=== PATIENT | male | born 1965 | race Caucasian/White ===

== ENCOUNTER 2021-01-08 07:32 | Outpatient (REF) | payer OTHER, SELFPAY ==
[2021-01-08 07:52] LABS: COVID-19 Test Negative (Negative)
== END 2021-01-08 07:33 | disposition home or self-care (01) ==
LOC: HO.LAB 07:32
PROVIDERS: Visit Provider Internal Medicine
DX: Z20.822 Contact with and (suspected) exposure to COVID-19 (principal)
CPT/HCPCS: 36415; 87635; C9803

== ENCOUNTER → 2021-03-09 14:33 | Outpatient (BNVA) | payer OTHER, SELFPAY | PROVIDERS: PCP Internal Medicine; Visit Provider Anesthesiology ==

== ENCOUNTER 2021-04-28 07:21 | Outpatient (REF) | payer OTHER, SELFPAY ==
[2021-04-28 08:04] LABS: MANUAL DIFF FLAG NO
[2021-04-28 08:10] LABS: Basophils Percent Auto 0.6 % (0-2); Eosinophils Absolute Auto 0.2 X10*3/uL (0.0-0.4); Eosinophils Percent Auto 2.5 % (0-4); Hemoglobin 15.3 g/dl (14.0-18.0); Imm Gran Abs Auto 0.03 X10*3/uL (0.00-0.03); Imm Gran Pct Auto 0.5 % (0.0-0.4); Lymphocytes Absolute Auto 1.3 X10*3/uL (1.2-4.9); Lymphocytes Percent Auto 19.6 % (20-40); Mean Corpuscular HGB Conc 34.8 g/dl (31.0-36.0); Mean Corpuscular Hemoglobin 32.1 pg (27.0-33.0); Mean Corpuscular Volume 92.2 fL (80-98); Mean Platelet Volume 9.6 fL (9.4-12.4); Monocytes Absolute Auto 0.8 X10*3/uL (0.1-1.2); Monocytes Percent Auto 12.4 % (2-11); Neutrophils Absolute Auto 4.2 X10*3/uL (2.0-8.3); Neutrophils Percent Auto 64.4 % (45-73); Platelet Count 232 X10*3/uL (160-400); Red Blood Count 4.77 X10*6/uL (4.60-5.80); Red Cell Distribution Width 12.3 % (11.0-16.0); White Blood Count 6.5 X10*3/uL (4.8-10.8)
[2021-04-28 08:19] LABS: Estimated Average Glucose 105 mg/dL; Hemoglobin A1c % 5.3 %
[2021-04-28 08:34] LABS: Alanine Aminotransferase 39 U/L (0-40); Albumin Level 4.7 g/dL (3.5-5.0); Alkaline Phosphatase 90 U/L (39-117); Anion Gap 14 (12-20); Aspartate Amino Transferase 25 U/L (5-37); Bilirubin Total 0.7 mg/dL (0.0-1.0); Blood Urea Nitrogen 21 mg/dL (9-16); Calcium 9.5 mg/dL (8.4-10.2); Carbon Dioxide 25 mmol/L (22-29); Chloride 104 mmol/L (96-108); Cholesterol 228 mg/dL; Estimated Glomerular Filt Rate > 60; Glucose Random 128 mg/dL (60-115); HDL Cholesterol 48 mg/dL; LDL Cholesterol Calculated 112 mg/dl; Potassium 4.3 mmol/L (3.3-5.1); Sodium 139 mmol/L (135-145); Total Protein 7.5 g/dL (6.5-8.0); Triglycerides 341 mg/dL
[2021-04-28 09:00] LABS: Free T4 (Free Thyroxine) 0.92 ng/dL (0.71-1.85); Prostate Specific Antigen Scr 0.99 ng/mL (<0.05-4.0); Thyroid Stimulating Hormone 0.77 uIU/mL (0.32-4.0)
[2021-04-28 09:25] LABS: Folate 7.8 ng/mL (> or = 4.0); Vitamin B12 315 pg/mL (200-900)
== END 2021-04-28 07:22 | disposition home or self-care (01) ==
LOC: HO.LAB 07:21
PROVIDERS: Internal Medicine; PCP Internal Medicine; Visit Provider Internal Medicine
DX: Z12.5 Encounter for screening for malignant neoplasm of prostate (principal); E78.1 Pure hyperglyceridemia; R73.02 Impaired glucose tolerance (oral); E78.00 Pure hypercholesterolemia, unspecified
CPT/HCPCS: 36415; 80053; 80061; 82607; 82746; 83036; 84153; 84439; 84443; 85025; C9803; U0003; U0005

== ENCOUNTER → 2021-06-24 09:36 | Outpatient (BNVA) | payer OTHER, SELFPAY | PROVIDERS: PCP Internal Medicine; Visit Provider Dietitian, Registered | DX: R73.02 Impaired glucose tolerance (oral) (principal); E78.00 Pure hypercholesterolemia, unspecified | CPT/HCPCS: 97802 ==

== ENCOUNTER 2021-07-06 15:42 | Outpatient (REF) | payer OTHER, SELFPAY ==
[2021-07-06 16:14] LABS: IDNOW Serial# 9DD0AD1C
[2021-07-06 16:15] LABS: COVID-19 Test Negative (Negative)
== END 2021-07-06 15:43 | disposition home or self-care (01) ==
LOC: HO.LAB 15:42
PROVIDERS: Visit Provider Internal Medicine
DX: Z20.822 Contact with and (suspected) exposure to COVID-19 (principal)
CPT/HCPCS: 36415; 87635; C9803

== ENCOUNTER 2022-04-07 15:46 | Outpatient (REF) | payer OTHER, SELFPAY ==
--- NOTE | ~2022-04-07 | XR_ITS ---
EXAMINATION: XR HAND, LEFT CLINICAL INFORMATION: Left hand pain (thumb). COMPARISON: None TECHNIQUE: PA, lateral, and oblique views of the left thumb. FINDINGS: There is no evidence of acute fracture or dislocation of the left thumb. There appears to be some mild edema within the soft tissues. Joint spaces are maintained. No destructive bony lesion. There appear to be subchondral cyst or erosions about the heads of the 2nd, 3rd, and 5th proximal phalanges. There also appears to be subchondral cyst or erosion about the head of the 5th middle phalanx. There also appears to be a small cyst or erosion involving the distal scaphoid. No para-articular osteopenia is present. XR/XR hand LT min 3V IMPRESSION: No evidence of acute fracture or dislocation of the left thumb. No significant joint space narrowing appreciated. Question erosions or subchondral cysts about the hand as described.
== END 2022-04-07 15:47 | disposition home or self-care (01) ==
LOC: HO.HOSX 15:46
PROVIDERS: Visit Provider Orthopaedic Surgery
DX: M79.642 Pain in left hand (principal)
CPT/HCPCS: 73130

== ENCOUNTER 2022-07-26 11:59 | Outpatient (REF) | payer OTHER, SELFPAY ==
[2022-07-26 12:55] LABS: Influenza A PCR NEGATIVE (Negative); Influenza B PCR NEGATIVE (Negative); Resp Syncy Virus RNA Qual PCR NEGATIVE (Negative); SARS COV2 PCR INHOUSE NEGATIVE (Negative)
== END 2022-07-26 12:00 | disposition home or self-care (01) ==
LOC: HO.LNP 11:59
PROVIDERS: Visit Provider Nurse Practitioner Family
DX: Z20.822 Contact with and (suspected) exposure to COVID-19 (principal); J30.9 Allergic rhinitis, unspecified
CPT/HCPCS: 0241U

== ENCOUNTER 2022-12-10 06:52 | Outpatient (REF) | payer OTHER, SELFPAY ==
[2022-12-10 07:03] LABS: MANUAL DIFF FLAG NO
[2022-12-10 07:43] LABS: Basophils Absolute Auto 0.1 X10*3/uL (0.0-0.2); Basophils Percent Auto 1.1 % (0-2); Eosinophils Absolute Auto 0.3 X10*3/uL (0.0-0.4); Hematocrit 42.8 % (42.0-52.0); Hemoglobin 14.4 g/dl (14.0-18.0); Imm Gran Abs Auto 0.02 X10*3/uL (0.00-0.03); Imm Gran Pct Auto 0.3 % (0.0-0.4); Lymphocytes Percent Auto 30.8 % (20-40); Mean Corpuscular HGB Conc 33.6 g/dl (31.0-36.0); Mean Corpuscular Hemoglobin 31.4 pg (27.0-33.0); Mean Corpuscular Volume 93.2 fL (80.0-98.0); Mean Platelet Volume 9.3 fL (9.4-12.4); Monocytes Absolute Auto 0.8 X10*3/uL (0.1-1.2); Monocytes Percent Auto 11.5 % (2-11); Neutrophils Absolute Auto 3.4 x10*3/uL (2.0-8.3); Neutrophils Percent Auto 52.3 % (45-73); Platelet Count 297 X10*3/uL (160-400); Red Blood Count 4.59 X10*6/uL (4.60-5.80); Red Cell Distribution Width 11.9 % (11.0-16.0); White Blood Count 6.5 X10*3/uL (4.8-10.8)
[2022-12-10 08:00] LABS: Estimated Average Glucose 108 mg/dL; Hemoglobin A1C 142.5163 umol/L; Hemoglobin A1c % 5.4 %
[2022-12-10 08:34] LABS: Alanine Aminotransferase 31 U/L (0-40); Albumin Level 4.8 g/dL (3.5-5.0); Alkaline Phosphatase 74 U/L (39-117); Anion Gap 18 (12-20); Aspartate Amino Transferase 18 U/L (5-37); Bilirubin Total 0.5 mg/dL (0.0-1.0); Blood Urea Nitrogen 21 mg/dL (9-16); Calcium 9.5 mg/dL (8.4-10.2); Carbon Dioxide 25 mmol/L (22-29); Chloride 104 mmol/L (96-108); Cholesterol 219 mg/dL; Estimated Glomerular Filt Rate > 60; Glucose Random 114 mg/dL (60-115); HDL Cholesterol 43 mg/dL; LDL Cholesterol Calculated 110 mg/dl; Potassium 4.4 mmol/L (3.3-5.1); Sodium 143 mmol/L (135-145); Total Protein 7.6 g/dL (6.5-8.0); Triglycerides 333 mg/dL
[2022-12-10 09:14] LABS: Folate 4.9 ng/mL (> or = 4.0); Free T4 (Free Thyroxine) 0.98 ng/dL (0.71-1.85); Prostate Specific Antigen Scr 1.38 ng/mL (<0.05-4.0); Thyroid Stimulating Hormone 0.59 uIU/mL (0.32-4.0); Vitamin B12 511 pg/mL (200-900)
== END 2022-12-10 06:53 | disposition home or self-care (01) ==
LOC: HO.LAB 06:52
PROVIDERS: PCP Internal Medicine; Visit Provider Internal Medicine
DX: Z00.00 Encounter for general adult medical examination without abnormal findings (principal); Z12.5 Encounter for screening for malignant neoplasm of prostate; E78.00 Pure hypercholesterolemia, unspecified; E78.1 Pure hyperglyceridemia; R73.02 Impaired glucose tolerance (oral)
CPT/HCPCS: 36415; 80053; 80061; 82607; 82746; 83036; 84153; 84439; 84443; 85025

== ENCOUNTER 2023-01-04 10:37 | Outpatient (REF) | payer OTHER, SELFPAY ==
--- NOTE | ~2023-01-04 | XR_ITS ---
EXAMINATION: XR WRIST, LEFT CLINICAL INFORMATION: Pain COMPARISON: Previous left hand x-ray 2021 TECHNIQUE: PA, lateral, and oblique views of the left wrist. FINDINGS: Bone alignment is normal. No fracture or dislocation. Subchondral cystic changes in the scaphoid bone at the trapezoid trapezium scaphoid joint. May also be mild joint space narrowing. Joint spaces are otherwise normal. Soft tissues are normal. XR/XR wrist LT min 3V IMPRESSION: Subchondral cystic change in the scaphoid bone at the trapezoid trapezium scaphoid joint similar to previous exam.
== END 2023-01-04 10:38 | disposition home or self-care (01) ==
LOC: HO.HOSX 10:37
PROVIDERS: PCP Internal Medicine; Visit Provider Orthopaedic Surgery
DX: M25.532 Pain in left wrist (principal); M25.432 Effusion, left wrist
CPT/HCPCS: 73110

== ENCOUNTER → 2023-03-15 08:56 | Outpatient (BNVA) | payer OTHER, SELFPAY | PROVIDERS: PCP Internal Medicine; Visit Provider Orthopaedic Surgery ==

== ENCOUNTER 2023-04-04 14:19 | Outpatient (REF) | payer OTHER, SELFPAY ==
--- NOTE | ~2023-04-04 | XR_ITS ---
Examination: XR knee standing BI, XR knee RT 2V Indication: M25.561 - Pain in right knee Comparison: No pertinent prior studies are currently available for comparison. Technique: Standing views of both knees with additional lateral and sunrise view of the right knee obtained Findings: No significant right knee joint effusion. Bones are normal anatomic alignment with no acute fracture or dislocation. Mild tricompartmental degenerative changes are seen with small anterior osteophyte formation in the patellofemoral compartment and mild joint space loss in the medial more so than lateral compartments. No bony destructive lesions or periosteal reaction. Surrounding soft tissue unremarkable. The visualized left knee demonstrates mild joint space loss in the medial compartment as well. XR/XR knee RT 2V Impression: Mild tricompartmental degenerative changes on the right. Mild degenerative changes in the visualized left. No acute fracture or dislocation.
--- NOTE | ~2023-04-04 | XR_ITS ---
Examination: XR knee standing BI, XR knee RT 2V Indication: M25.561 - Pain in right knee Comparison: No pertinent prior studies are currently available for comparison. Technique: Standing views of both knees with additional lateral and sunrise view of the right knee obtained Findings: No significant right knee joint effusion. Bones are normal anatomic alignment with no acute fracture or dislocation. Mild tricompartmental degenerative changes are seen with small anterior osteophyte formation in the patellofemoral compartment and mild joint space loss in the medial more so than lateral compartments. No bony destructive lesions or periosteal reaction. Surrounding soft tissue unremarkable. The visualized left knee demonstrates mild joint space loss in the medial compartment as well. XR/XR knee standing BI Impression: Mild tricompartmental degenerative changes on the right. Mild degenerative changes in the visualized left. No acute fracture or dislocation.
== END 2023-04-04 14:20 | disposition home or self-care (01) ==
LOC: HO.HOSX 14:19
PROVIDERS: Visit Provider Physician Assistant
DX: M25.561 Pain in right knee (principal); M23.91 Unspecified internal derangement of right knee; M25.562 Pain in left knee
CPT/HCPCS: 20610; 73560; 73565; J1040

== ENCOUNTER 2023-04-04 14:20 | Outpatient (AMB) | payer OTHER, SELFPAY ==
[2023-04-04 14:28] VITALS: BMI 26.1
--- NOTE | 2023-04-04 14:28 | MHC.OFFVIS ---
Intake Vital Signs 04/04/23 14:28 Height 5 ft 10 in Weight 182 lb BMI 26.1 Intake Visit Reasons: New Prob - Knee Pain Intake Note: Stefano 58 yr old male presents today for a new problem of his right knee pain. No injury he can recall. States pain has been presents for about 2 weeks and has worsen. States he has concerns due to swelling in his calf. Pain is mainly when he extends and flexes his knee. Patient states he is very active and this is limiting him. Pain with ROM. Denies numbness or tingling. States he has tried Advil with little relief. Allergies lisinopril Allergy (Intermediate, Verified 04/04/23 14:33) Cough scallops Adverse Reaction (Unknown, Verified 04/04/23 14:33) VOMITING HPI New Prob - Knee Pain HPI Details 58-year-old male who presents to the office today for evaluation of right knee pain for 2 weeks. He states he has worsening right knee pain with flexing and extending his knee. He also c/o swelling in his calf. He denies any numbness or tingling. He finds mild relief with Advil. He has not had any injury in the past. [facility] Medical History Allergic rhinitis Blood pressure elevated without history of HTN Dog bite of left thumb GERD (gastroesophageal reflux disease) Hypertriglyceridemia Impaired glucose tolerance Myofascial pain syndrome Surgical History Left breast mass Family History Mother No problems noted. 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 Tenderness along the medial joint line. Full ROM with crepitus. Negative Hiwot?s. No ligamentous laxity. NVI. Office Procedures Joint Injection/Drain Joint Injection/Drain Primary Site: right knee Prep: site was prepped using aseptic technique, ethochloride spray was applied and injection warnings given Injected: 80 mg of, DepoMedrol, with 8 mL of, 1% plain lidocaine and in the joint Approach Used: anteromedial Procedure: The patient tolerated the procedure well and there was some relief with the local anesthesia Coding 09919 - Glenohumeral/Tronchanteric Bursa/Intraarticular Procedure code (CPT) selection complete Results Reviewed Results Reviewed: 04/04/23 14:44 Lidocaine HCl 2 % MPF [Xylocaine 2 % MPF] 5 ml .ROUTE .STK-MED ONE methylPREDNISolone acetate [DEPO-MedroL] 80 mg .ROUTE .STK-MED ONE Xrays were obtained in the office today and personally reviewed by me of the right knee negative for acute fracture or dislocation Assessment & Plan Assessment & Plan (1) Internal derangement of right knee: Code(s): M23.91 - Unspecified internal derangement of right knee Plan We discussed options today which include steroid injection. They did consent to move forward with the injection, which was tolerated well. An MRI of the right knee was also ordered to further evaluate integrity of his meniscus. I recommended rest, ice and elevation and OTC anti-inflammatories PRN for discomfort. If symptoms persist or worsens over the next 6-8 weeks, patient will contact the office, otherwise follow-up as needed. Orders: Orders XR knee standing BI 04/04/23 M25.561 - Pain in right knee, M25.562 - Pain in left knee XR knee RT 2V 04/04/23 M25.569 - Pain in unspecified knee MR knee RT wo con 04/04/23 M17.11 - Unilateral primary osteoarthritis, right knee Patient Instructions: Scribed for Fidel South PA-C, by Robert Omalley medical equipment technician, on 04/04/2023 at 2:30 PM EST. Fidel Lowery PA-C, have personally reviewed and agree with the information entered by the scribe. Coding Level of Care Code Est Pt Level 3 (47006) Diagnoses Internal derangement of right knee M23.91 CPT Codes Coding - Joint 7: 09286 - Glenohumeral/Tronchanteric Bursa/Intraarticular ([id number])
== END 2023-04-04 15:03 | disposition home or self-care (01) ==
PROVIDERS: PCP Internal Medicine; Visit Provider Physician Assistant
DX: M23.91 Unspecified internal derangement of right knee (principal)
CPT/HCPCS: 20610; 99213

== ENCOUNTER 2023-05-09 18:02 | Outpatient (REF) | payer OTHER, SELFPAY ==
--- NOTE | ~2023-05-09 | MR_ITS ---
EXAMINATION: MR KNEE WITHOUT CONTRAST, RIGHT CLINICAL INFORMATION: Right knee pain. Inability to fully flex or extend the knee. Unilateral primary osteoarthritis. COMPARISON: None available. TECHNIQUE: MRI of the right knee without contrast was performed using routine sequences on a high-field scanner. FINDINGS: MENISCI: Medial Meniscus: The medial meniscus, and its root ligaments, are intact. Lateral Meniscus: Intact. No evidence of surface tearing, discoid meniscus or parameniscal cyst. LIGAMENTS: Cruciate: Anterior and posterior cruciate ligaments are normal. Collateral: At the medial knee, the tibial collateral ligament is intact. At the lateral knee, the iliotibial band, fibular collateral ligament, biceps femoris tendon and popliteus tendon are intact. EXTENSOR MECHANISM: The distal quadriceps tendon is unremarkable. There is mild tendinopathy of the patellar tendon at the lower pole where there is likely old small interstitial tendon tear of < 0.2 cm AP dimension (image 15, series 5). Otherwise, the patellar tendon, patellar retinacula, and Hoffa's fat pad are unremarkable. ARTICULAR CARTILAGE/BONE: Patellofemoral Compartment: Patella is properly positioned within the trochlear groove. There is moderate to high-grade chondral loss in region of the median ridge of the patella. A focus of delamination of cartilage at the lateral patellar facet measures 0.6 cm transverse (image 6, series 3). A full-thickness chondral defect of the medial trochlear facet measures up to 0.8 cm diameter. Small osteophytes are present at the degenerated patellofemoral joint. Medial Compartment: Multiple irregular partial-thickness and full-thickness chondral fissures are present in the weightbearing portion of the femoral condyle with underlying subchondral marrow edema, subchondral sclerosis and small subchondral cyst. No fracture. Lateral Compartment: Articular cartilage is maintained. JOINT FLUID AND BURSAE: [id number] joint effusion. 0.3 cm intra-articular chondral body is present anterior to the lateral meniscus (image 21, series 6). Also, small chondral body is likely present within the Diggs's cyst. The Diggs's cyst measures up to 2.5 cm transverse and approximately 6 cm craniocaudal. MR/MR knee RT wo con IMPRESSION: * No evidence of meniscus tear or ligament injury. * There is osteoarthritis of patellofemoral and medial tibiofemoral compartments. Articular cartilage abnormalities include full-thickness and delamination defects of the patella, as well as full-thickness chondral defects of the medial femoral trochlea and weightbearing medial femoral condyle * [id number] joint effusion, Diggs's cyst and small intra-articular chondral bodies. * Mild patellar tendinopathy.
== END 2023-05-09 18:03 | disposition home or self-care (01) ==
LOC: HO.MRI 18:02
PROVIDERS: PCP Internal Medicine; Visit Provider Physician Assistant
DX: M17.11 Unilateral primary osteoarthritis, right knee (principal)
CPT/HCPCS: 73721

== ENCOUNTER 2023-06-09 14:40 | Outpatient (AMB) | payer OTHER, SELFPAY ==
--- NOTE | 2023-06-09 15:00 | A.OFFVIS_ITS ---
Intake Intake Visit Reasons: ov- MRI Knee RT review Intake Note: Pt presents to the office today for MRI results of the right knee. Pt states he had a few episodes of not being able to move it after the MRI but he still feels pressure in his leg. He states he is able to move his knee/leg a lot better since his last visit. Allergies lisinopril Allergy (Intermediate, Verified 06/09/23 15:00) Cough scallops Adverse Reaction (Unknown, Verified 06/09/23 15:00) VOMITING HPI ov- MRI Knee RT review HPI Details 58-year-old male who returns to the [facility] today for an MRI review of right knee. He states he has been able to move his leg better than his last visits but he did have a few episodes of being unable to move after the MRI. He also experiences pressure in his leg. [facility] Medical History Dog bite of left thumb Myofascial pain syndrome Blood pressure elevated without history of HTN Allergic rhinitis GERD (gastroesophageal reflux disease) Hypertriglyceridemia Impaired glucose tolerance Surgical History Left breast mass Family History Mother No problems noted. 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 Mild Tenderness along the medial joint line. Full ROM with crepitus. Negative Hiwot?s. No ligamentous laxity. NVI. Results Reviewed Results Reviewed: MR knee RT wo con 05/09/23 IMPRESSION: * No evidence of meniscus tear or ligament injury. * There is osteoarthritis of patellofemoral and medial tibiofemoral compartments. Articular cartilage abnormalities include full-thickness and delamination defects of the patella, as well as full-thickness chondral defects of the medial femoral trochlea and weightbearing medial femoral condyle * [id number] joint effusion, Diggs's cyst and small intra-articular chondral bodies. * Mild patellar tendinopathy. Assessment & Plan Assessment & Plan (1) Internal derangement of right knee: Code(s): M23.91 - Unspecified internal derangement of right knee Plan He is going to continue with activities as tolerated. I did send him a prescription to his pharmacy for occasional flareups if needed. If symptoms persist or worsens, patient will contact the office, otherwise follow-up as needed. Medications: New celecoxib (Celebrex) 200 mg PO BID 60 caps 3RF 30 days Patient Instructions: Scribed for Fidel South PA-C, by Robert Omalley quality engineer medical device, on 06/09/2023 at 3:15 PM EST. Fidel Lowery PA-C, have personally reviewed and agree with the information entered by the scribe. Coding Level of Care Code Est Pt Level 3 (37443) Diagnoses Internal derangement of right knee M23.91
== END 2023-06-09 16:02 | disposition home or self-care (01) ==
PROVIDERS: PCP Internal Medicine; Visit Provider Physician Assistant
DX: M23.91 Unspecified internal derangement of right knee (principal)
CPT/HCPCS: 99213

== ENCOUNTER → 2023-06-09 14:40 | Outpatient (BNVA) | payer OTHER, SELFPAY | PROVIDERS: PCP Internal Medicine; Visit Provider Physician Assistant ==

== ENCOUNTER 2023-11-10 06:47 | Outpatient (REF) | payer OTHER, SELFPAY ==
[2023-11-10 07:03] LABS: MANUAL DIFF FLAG NO
[2023-11-10 07:14] LABS: Basophils Absolute Auto 0.1 X10*3/uL (0.0-0.2); Eosinophils Absolute Auto 0.2 X10*3/uL (0.0-0.4); Eosinophils Percent Auto 3.1 % (0-4); Hemoglobin 14.7 g/dl (14.0-18.0); Imm Gran Abs Auto 0.02 X10*3/uL (0.00-0.03); Imm Gran Pct Auto 0.3 % (0.0-0.4); Lymphocytes Absolute Auto 1.5 X10*3/uL (1.2-4.9); Lymphocytes Percent Auto 23.9 % (20-40); Mean Corpuscular Hemoglobin 32.2 pg (27.0-33.0); Mean Corpuscular Volume 91.9 fL (80.0-98.0); Monocytes Absolute Auto 0.6 X10*3/uL (0.1-1.2); Monocytes Percent Auto 10.1 % (2-11); Neutrophils Absolute Auto 3.8 x10*3/uL (2.0-8.3); Neutrophils Percent Auto 61.6 % (45-73); Platelet Count 238 X10*3/uL (160-400); Red Blood Count 4.57 X10*6/uL (4.60-5.80); Red Cell Distribution Width 12.1 % (11.0-16.0); White Blood Count 6.2 X10*3/uL (4.8-10.8)
[2023-11-10 07:24] LABS: Estimated Average Glucose 108 mg/dL; Hemoglobin A1c % 5.4 % (<6.0)
[2023-11-10 07:41] LABS: Alanine Aminotransferase 43 U/L (0-40); Albumin Level 4.4 g/dL (3.5-5.0); Alkaline Phosphatase 75 U/L (39-117); Anion Gap 11 (12-20); Aspartate Amino Transferase 25 U/L (5-37); Bilirubin Total 0.4 mg/dL (0.0-1.0); Blood Urea Nitrogen 25 mg/dL (9-16); Calcium 9.4 mg/dL (8.4-10.2); Carbon Dioxide 25 mmol/L (22-29); Chloride 106 mmol/L (96-108); Cholesterol 246 mg/dL (<200); Estimated Glomerular Filt Rate > 60; Glucose Random 119 mg/dL (60-115); HDL Cholesterol 44 mg/dL (>40); Potassium 4.1 mmol/L (3.3-5.1); Sodium 138 mmol/L (135-145); Total Protein 7.5 g/dL (6.5-8.0); Triglycerides 728 mg/dL (<150)
[2023-11-10 07:50] LABS: Free T4 (Free Thyroxine) 0.84 ng/dL (0.71-1.85); Thyroid Stimulating Hormone 1.07 uIU/mL (0.32-4.0)
== END 2023-11-10 06:48 | disposition home or self-care (01) ==
LOC: HO.LAB 06:47
PROVIDERS: PCP Internal Medicine; Visit Provider Internal Medicine
DX: I10 Essential (primary) hypertension (principal); E78.00 Pure hypercholesterolemia, unspecified; R73.02 Impaired glucose tolerance (oral)
CPT/HCPCS: 36415; 80053; 80061; 83036; 84439; 84443; 85025

== ENCOUNTER 2023-11-11 08:24 | Outpatient (AMB) | payer OTHER, SELFPAY ==
[2023-11-11 08:33] VITALS: BP 134/78; PULSE 89; O2SAT 97; BMI 26.7
--- NOTE | 2023-11-11 08:33 | A.OFFPC_ITS ---
Vital Signs 11/11/23 08:33 Height 5 ft 10 in Weight 186 lb BMI 26.7 BP 134/78 Blood Pressure Location Lt brachial Position Sitting Pulse 89 Pulse Source Pulse Oximeter Pulse Oximetry (%) 97 Oxygen Delivery Method Room Air Intake Visit Reasons: PHYSICAL Intake Note: Patient is here today for a physical. Asphalt Tamper Required: No Allergies lisinopril Allergy (Intermediate, Verified 11/11/23 08:34) Cough scallops Adverse Reaction (Unknown, Verified 11/11/23 08:34) VOMITING Medication List - Last Reconciled 11/11/23 by Lynn Sheldon MD fexofenadine (Deena Allergy) 180 mg PO DAILY fluticasone propionate 50 mcg/actuation (Flonase Allergy Relief) 1 spray intranasal Q12H 30 days losartan 50 mg PO DAILY 90 days omeprazole magnesium (Prilosec OTC) 20 mg PO DAILY simvastatin 5 mg PO BEDTIME 90 days Tobacco use date assessed: 11/11/23 Dental Screening Dental Screen Date: 11/11/23 Did you have a dental visit in the last 12 months?: Yes Did you have a dental problem in the last 6 months where you did not have access to dental care?: No Was dental information given to patient?: Patient has dentist HPI PHYSICAL HPI Details 58-year-old male with a history of impai red glucose tolerance hypercholesterolemia GERD hypertension coming in for physical exam last seen in November 2022. Patient's colonoscopy is up-to-date. Review of the notes patient did receive flu and Tdap. Noted also right knee problem and has seen Orthopedics. Results osteoarthritis patellofemoral and medial tibiofemoral compartments small and moderate joint effusion with Diggs's cyst.. February 2023 had a dog bite on the thumb treated with antibiotic and tetanus up-to-date. epigastric pain and 6 weeks with nausea barely eating, getting better does exercise, , diarrhea, had blood 6 qweeks ago , [facility] Medical History Dog bite of left thumb Myofascial pain syndrome Blood pressure elevated without history of HTN Allergic rhinitis GERD (gastroesophageal reflux disease) Hypertriglyceridemia Impaired glucose tolerance Surgical History Left breast mass Family History (Updated 11/11/23 @ 08:48 by Lynn Sheldon MD) Mother No problems noted. 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 1. Little interest or pleasure in doing things: not at all 2. Feeling down, depressed, or hopeless: not at all 3. Trouble falling or staying asleep, or sleeping too much: not at all 4. Feeling tired or having little energy: not at all 5. Poor appetite or overeating: not at all 6. Feeling bad about yourself - or that you are a failure or have let yourself or your family down: not at all 7. Trouble concentrating on things, such as reading the newspaper or watching television: not at all 8. Moving or speaking so slowly that other people could have noticed. Or the opposite - being so fidgety or restless that you have been moving around a lot more than usual: not at all 9. Thoughts that you would be better off or of hurting yourself in some way: not at all Total score: 0 Depression Screening Interpretation: Negative Depression Screening Done: Yes Source: Developed by Drs. Kiko Gray, Katya Melo, Alex Martinez and colleagues, with an educational karis from [employer]. Thrive Questionnaire Date Thrive assessed: 11/11/23 I am a: Patient What is your living situation today?: I have a steady place to live Within the past 12 months, did the food you bought not last and you didn't have the money to get more?: Never true Within the past 12 months, did you worry whether your food would run out before you got money to buy more?: Never true Do you have trouble paying for medicines?: No Do you have trouble getting transportation to medical appointments?: No Do you have trouble paying your heating and electricity bill?: No Do you have trouble taking care of your child, family member or friend?: No Do you have trouble with day-to-day activities such as bathing, preparing meals, shopping, managing finances, etc.?: No Are you currently unemployed and looking for a job?: No Are you interested in more education?: No Please select the resources that you would like help with: None THRIVE Score: 0 AUDIT C Alcohol Use Questionnaire (AUDIT-C) 1. How often do you have a drink containing alcohol?: 4 or more times a week 2. How many drinks containing alcohol do you have on a typical day when you are drinking?: 1 or 2 3. How often do you have six or more drinks on one occasion?: Never Total Score: 4 ADELE-7 AMB Questionnaire ADELE-7 Date ADELE - 7 assessed: 11/11/23 Feeling nervous, anxious, or on edge: 0 = Not at all Not being able to stop or control worryin = Not at all Worrying too much about different things: 0 = Not at all Trouble relaxin = Not at all Being so restless that it is hard to sit still: 0 = Not at all Becoming easily annoyed or irritable: 0 = Not at all Feeling afraid as if something awful might happen: 0 = Not at all Total ADELE-7 score (0-4 normal; 5-9 mild; 10-14 moderate; 15-21 severe): 0 Source: Developed by Drs. Kiko Gray, Katya Melo, Alex Martinez and colleagues, with an educational karis from [employer]. Review of Systems Const Denies poor appetite and Denies weakness Eyes Denies no additional complaints ENT Reports Normal hearing present, Denies dizziness, Denies nasal congestion, Denies tinnitus and Denies sore throat Card Denies chest pain, Denies syncope, Denies rapid heart rate and Denies dyspnea Resp Denies cough and Denies dyspnea GI Denies change in stool character, Reports constipation, Denies diarrhea, Denies nausea and Denies vomiting Denies dysuria and Denies urinary frequency Neuro Reports Normal hearing present, Denies confusion, Denies dizziness, Denies syn cope and Denies weakness Psych Denies confusion Physical exam (Primary Care) Vital Signs: Last Vital Signs Pulse 89 11/11/23 08:33 BP 134/78 11/11/23 08:33 Pulse Ox 97 11/11/23 08:33 Oxygen Delivery Method Room Air 11/11/23 08:33 BMI result Body Mass Index 26.7 Tobacco/Smoking Status: Tobacco use Status Tobacco use date assessed 11/11/23 11/11/23 08:39 Patient Tobacco Use Status Former Tobacco user 11/11/23 08:39 Tobacco use type Cigarette 11/11/23 08:39 e-Cigarette/Vaping Use Never Used 11/11/23 08:39 PHQ-9: PHQ-9 Score PHQ-9: Total score 0 11/11/23 08:41 Depression Screening Interpretation: Negative Thrive Assessment: Date of Thrive Assessment Date Thrive assessed 11/11/23 11/11/23 08:39 Const General: alert and awake; No confusion Orientation/consciousness: No confusion HENMT Head: Yes normocephalic Ears: external ears normal and TM's normal bilaterally Face and sinus: Yes normal facial exam Mouth: moist mucous membranes Throat: Yes tonsils normal Eyes Conjunctivae: conjunctivae normal Pupils: Equal, round and reactive pupils present and Pupil accommodation reflex normal Direct Ophthalmoscopy: normal light reflex Neck Neck: No lymphadenopathy Thyroid: Thyroid normal Chest Chest palpation & inspection: normal inspection of the chest Resp Effort & Inspection: normal respiratory effort and no audible wheezes Auscultation: clear to auscultation bilaterally, no crackles, no wheezes and lung sounds not diminished Cardio Rate: regular rate Rhythm: regular rhythm Peripheral pulses: radial pulses present and dorsalis pedis present GI Other: Guaiac negative stools prostate mildly enlarged Palpation (GI): no masses Auscultation: normal bowel sounds and normoactive bowel sounds Male General Exam: Yes normal external exam Skin General skin exam: no rashes or lesions noted Rashes: no rashes Neuro General: deep tendon reflexes 2+ bilaterally and No confusion Cranial nerves: Yes Equal, round and reactive pupils present, Yes Midline tongue present, Yes Normal hearing present and Yes Ability to bilaterally elevate shoulders present Cognition (Neuro): normal cognition Gait exam (Neuro): Normal gait present Motor exam (neuro): 5/5 motor strength present throughout Deep tendon reflexes (DTR's): Right brachioradialis reflex intensity grade: 2+, Left brachioradialis reflex intensity grade: 2+, Right patellar reflex intensity grade: 2+ and Left patellar reflex intensity grade: 2+ Extrem General: No edema Assessment and Plan Assessment & Plan (1) Annual physical exam: Code(s): Z00.00 - Encounter for general adult medical examination without abnormal findings (2) Hypertriglyceridemia: Code(s): E78.1 - Pure hyperglyceridemia Plan: Avoid fried foods, chicken skin, eggs, butter margarine, pastries and meat. Be it pork or beef they have a lot of cholesterol LDL goal of less than 130 and triglyceride of less than 150 presently on simvastatin 5 mg once a day (3) Impaired glucose tolerance: Code(s): R73.02 - Impaired glucose tolerance (oral) Plan: Decrease the amount of carbohydrate intake, pasta, bread, rice and potatoes are all sugar and that is aside from all the sweet stuff, remember that fruits are good but they are Sweet also. (4) Hypertension: Code(s): I10 - Essential (primary) hypertension Plan: Continue with blood pressure medication. Decrease salt intake and exercise presently on losartan 50 mg once a day (5) Internal derangement of right knee: Code(s): M23.91 - Unspecified internal derangement of right knee Plan: MRI showing arthritis. Patient has seen Orthopedics and was given anti- inflammatory. but this has resolved (6) LFT elevation: Code(s): R79.89 - Other specified abnormal findings of blood chemistry Plan: Will work this up with hepatitis profile as well as liver ultrasound Orders: Orders Lipid Panel 3 Months E78.00 - Pure hypercholesterolemia, unspecified, E78.1 - Pure hyperglyceridemia Comprehensive Met. Panel 3 Months E78.1 - Pure hyperglyceridemia Lipid Panel Today E78.00 - Pure hypercholesterolemia, unspecified, E78.1 - Pure hyperglyceridemia US abdomen complete Today R79.89 - Other specified abnormal findings of blood chemistry Hepatitis B,C Profile Today R79.89 - Other specified abnormal findings of blood chemistry Prostate Specific Antigen Scr Today E78.1 - Pure hyperglyceridemia Medications: New fenofibrate 160 mg PO DAILY 30 tabs 4RF E78.1 - Pure hyperglyceridemia Coding Level of Care Code Est Pt Prev Care 40-64y([id number]) Diagnoses Annual physical exam Z00.00 Hypertriglyceridemia E78.1 Impaired glucose tolerance R73.02 Hypertension I10 Internal derangement of right knee M23.91 LFT elevation R79.89
== END 2023-11-11 09:18 | disposition home or self-care (01) ==
PROVIDERS: PCP Internal Medicine; Visit Provider Internal Medicine
DX: Z00.00 Encounter for general adult medical examination without abnormal findings (principal); E78.1 Pure hyperglyceridemia; R73.02 Impaired glucose tolerance (oral); I10 Essential (primary) hypertension; M23.91 Unspecified internal derangement of right knee; R79.89 Other specified abnormal findings of blood chemistry
CPT/HCPCS: 99396

== ENCOUNTER 2023-11-17 06:28 | Outpatient (REF) | payer OTHER, SELFPAY ==
[2023-11-17 08:21] LABS: Cholesterol 225 mg/dL (<200); HDL Cholesterol 46 mg/dL (>40); LDL Cholesterol Calculated 126 mg/dL (<100); Triglycerides 269 mg/dL (<150)
[2023-11-17 08:41] LABS: HBS Num1 0.57 mIU/mL (0-7.99); HBc Num1 0.09 S/CO (0.00-0.79); HBsAGNum1 0.26 S/CO (0.00-0.99); Hepatitis B Core Antibody Nonreactive (Nonreactive); Hepatitis B Surface Antigen Negative (Negative); ~Hepatitis B Surface Antibody NONREACTIVE (Nonreactive)
[2023-11-17 08:52] LABS: ~HepC Num1 0.08 S/CO (0.00-0.79); ~Hepatitis C Antibody Nonreactive (Nonreactive)
[2023-11-17 09:01] LABS: Prostate Specific Antigen Scr 1.28 ng/mL (<0.05-4.0)
== END 2023-11-17 06:29 | disposition home or self-care (01) ==
LOC: HO.LAB 06:28
PROVIDERS: PCP Internal Medicine; Visit Provider Internal Medicine
DX: E78.1 Pure hyperglyceridemia (principal); R79.89 Other specified abnormal findings of blood chemistry; E78.00 Pure hypercholesterolemia, unspecified; Z12.5 Encounter for screening for malignant neoplasm of prostate
CPT/HCPCS: 36415; 80061; 84153; 86704; 86706; 86803; 87340

== ENCOUNTER 2023-12-01 07:56 | Outpatient (REF) | payer OTHER, SELFPAY ==
--- NOTE | ~2023-12-01 | US_ITS ---
EXAMINATION: US ABDOMEN COMPLETE CLINICAL INFORMATION: Other specified abnormal findings of blood chemistry. COMPARISON: None available. TECHNIQUE: Real-time imaging of the abdominal viscera. FINDINGS: PANCREAS: Normal head and body, the tail is obscured by bowel gas. ABDOMINAL AORTA: The proximal, mid, and distal segments are normal in caliber. INFERIOR VENA CAVA: Visualized portions are normal. LIVER: The liver is normal in size. The liver contour is normal. There is diffuse increased liver parenchymal echogenicity, consistent with hepatic steatosis. No focal hepatic lesion. There is no intrahepatic biliary duct dilatation seen. GALLBLADDER: Normal. The gallbladder is physiologically distended without evidence of stones, sludge, polyps, wall thickening or pericholecystic fluid. COMMON BILE DUCT: Normal in caliber measuring 0.3 cm in diameter. RIGHT KIDNEY: Normal. No hydronephrosis. No renal calculi or focal parenchymal lesions. The kidney measures 11.3 cm in maximum dimension. LEFT KIDNEY: Normal. No hydronephrosis. No renal calculi or focal parenchymal lesions. The kidney measures 10.9 cm in maximum dimension. SPLEEN: Normal. The spleen measures 12.9 cm in maximum dimension. FREE FLUID: None. US/US abdomen complete IMPRESSION: Hepatic steatosis.
--- NOTE | 2023-12-01 08:39 | ECG_ITS ---
Test Reason : htn Blood Pressure : / mmHG Vent. Rate : 069 BPM Atrial Rate : 069 BPM P-R Int : 170 ms QRS Dur : 080 ms QT Int : 402 ms P-R-T Axes : 050 -32 003 degrees QTc Int : 430 ms Normal sinus rhythm Left axis deviation Inferior infarct , age undetermined Abnormal ECG No previous ECGs available Referred By: Lynn Sheldon Electronically Signed By:Marco Canchola
== END 2023-12-01 07:57 | disposition home or self-care (01) ==
LOC: HO.US 07:56
PROVIDERS: PCP Internal Medicine; Visit Provider Internal Medicine
DX: R79.89 Other specified abnormal findings of blood chemistry (principal); I10 Essential (primary) hypertension
CPT/HCPCS: 76700; 93005

== ENCOUNTER → 2023-12-01 08:39 | Outpatient (BNV) | payer OTHER, SELFPAY | PROVIDERS: PCP Internal Medicine; Visit Provider Internal Medicine Cardiovascular Disease | DX: R94.31 Abnormal electrocardiogram [ECG] [EKG] (principal) | CPT/HCPCS: 93010 ==

== ENCOUNTER 2023-12-09 16:43 | Outpatient (AMB) | payer OTHER, SELFPAY ==
--- NOTE | 2023-12-09 16:44 | A.OFFPC_ITS ---
Intake Visit Reasons: DISCUSS BLOOD WORK Allergies lisinopril Allergy (Intermediate, Verified 12/09/23 16:44) Cough scallops Adverse Reaction (Unknown, Verified 12/09/23 16:44) VOMITING Tobacco use date assessed: 11/11/23 Dental Screening Dental Screen Date: 12/09/23 Did you have a dental visit in the last 12 months?: Yes Did you have a dental problem in the last 6 months where you did not have access to dental care?: No Was dental information given to patient?: Patient has dentist HPI DISCUSS BLOOD WORK HPI Details 58-year-old overweight male with hyperch olesterolemia impaired glucose tolerance hypertension and elevated liver function tests comes in for follow-up through Telehealth last seen in October 2023. Patient had an ultrasound done in November 2023 showing hepatic steatosis EKG showing left axis deviation.. Patient had blood work done which showed an elevated cholesterol patient was placed on fenofibrate and repeated the blood work. [facility] Medical History (Updated 12/09/23 @ 16:57 by Lynn Sheldon MD) LFT elevation Dog bite of left thumb Myofascial pain syndrome Blood pressure elevated without history of HTN Allergic rhinitis GERD (gastroesophageal reflux disease) Hypertriglyceridemia Impaired glucose tolerance Surgical History Left breast mass Family History (Updated 12/09/23 @ 16:45 by Toña Muller CMA) Mother No problems noted. 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 1. Little interest or pleasure in doing things: not at all 2. Feeling down, depressed, or hopeless: not at all 3. Trouble falling or staying asleep, or sleeping too much: not at all 4. Feeling tired or having little energy: not at all 5. Poor appetite or overeating: not at all 6. Feeling bad about yourself - or that you are a failure or have let yourself or your family down: not at all 7. Trouble concentrating on things, such as reading the newspaper or watching television: not at all 8. Moving or speaking so slowly that other people could have noticed. Or the opposite - being so fidgety or restless that you have been moving around a lot more than usual: not at all 9. Thoughts that you would be better off or of hurting yourself in some way: not at all Total score: 0 Depression Screening Interpretation: Negative Depression Screening Done: Yes Source: Developed by Drs. Kiko Gray, Katya Melo, Alex Martinez and colleagues, with an educational karis from [employer]. Thrive Questionnaire Date Thrive assessed: 11/11/23 AUDIT C Alcohol Use Questionnaire (AUDIT-C) 1. How often do you have a drink containing alcohol?: 4 or more times a week 2. How many drinks containing alcohol do you have on a typical day when you are drinking?: 1 or 2 3. How often do you have six or more drinks on one occasion?: Never Total Score: 4 ADELE-7 AMB Questionnaire ADELE-7 Date ADELE - 7 assessed: 11/11/23 Source: Developed by Drs. Kiko Gray, Katya Melo, Alex Martinez and colleagues, with an educational karis from [employer]. Physical exam (Primary Care) Tobacco/Smoking Status: Tobacco use Status Tobacco use date assessed 11/11/23 12/09/23 16:46 Patient Tobacco Use Status Former Tobacco user 12/09/23 16:46 Tobacco use type Cigarette 12/09/23 16:46 e-Cigarette/Vaping Use Never Used 12/09/23 16:46 PHQ-9: PHQ-9 Score PHQ-9: Total score 0 12/09/23 16:46 Depression Screening Interpretation: Negative Thrive Assessment: Date of Thrive Assessment Date Thrive assessed 11/11/23 12/09/23 16:46 Telehealth Telehealth Location of provider rendering services: practice address Location of patient: address on file Patient Identification confirmed using: Name, : Yes Telehealth method: video (Iphone) Patient verbally consented to treatment: Yes Patient verbally consented to billing insurance company: Yes Patient informed of any privacy concerns related to visit: Yes Minutes spent on Phone/Video with Pt.: 25 Assessment and Plan Assessment & Plan (1) Hepatic steatosis: Code(s): K76.0 - Fatty (change of) liver, not elsewhere classified Plan: Low-fat diet and exercise (2) Hypercholesterolemia: Code(s): E78.00 - Pure hypercholesterolemia, unspecified Plan: Avoid fried foods, chicken skin, eggs, butter margarine, pastries and meat. Be it pork or beef they have a lot of cholesterol LDL goal of less than 130 and tr iglyceride of less than 150 presently on fenofibrate and simvastatin 5 mg once a day (3) Hypertension: Code(s): I10 - Essential (primary) hypertension Plan: Continue with blood pressure medication. Decrease salt intake and exercise losartan 50 mg once a day. EKG done showing a left axis deviation with small Q- waves in the inferior leads. Will order for an echocardiogram. (4) GERD (gastroesophageal reflux disease): Code(s): K21.9 - Gastro-esophageal reflux disease without esophagitis Plan: Avoid the foods that causes that usually spicy foods, tomato products, juices, coffee, soda and foods that your sensitive to. After eating do not lie down, allow 3-4 hours before in lie down. And keep the head of bed above 30 degrees to avoid the acid from going up. (5) Impaired glucose tolerance: Code(s): R73.02 - Impaired glucose tolerance (oral) Plan: Decrease the amount of carbohydrate intake, pasta, bread, rice and potatoes are all sugar and that is aside from all the sweet stuff, remember that fruits are good but they are Sweet also. Orders: Orders CA echo transthoracic complete Today I10 - Essential (primary) hypertension Coding Level of Care Code Tele Est Pt Level 4 (09283) Diagnoses Hepatic steatosis K76.0 Hypercholesterolemia E78.00 Hypertension I10 GERD (gastroesophageal reflux disease) K21.9 Impaired glucose tolerance R73.02
== END 2023-12-09 17:24 | disposition home or self-care (01) ==
LOC: HO.HMGH 16:43
PROVIDERS: PCP Internal Medicine; Visit Provider Internal Medicine
DX: K76.0 Fatty (change of) liver, not elsewhere classified (principal); E78.00 Pure hypercholesterolemia, unspecified; I10 Essential (primary) hypertension; K21.9 Gastro-esophageal reflux disease without esophagitis; R73.02 Impaired glucose tolerance (oral)
CPT/HCPCS: 99214

== ENCOUNTER → 2023-12-28 13:58 | Outpatient (REF) | payer OTHER, SELFPAY ==
--- NOTE | 2023-12-28 14:01 | CA_ITS ---
Transthoracic Echocardiogram Patient (Last, First, Middle): Stefano Sagastume, Gender: Male Date of : 1965 Age: 58 Procedure Date: 12/28/2023 Procedure Type: Transthoracic Echocardiogram Location: OP Height: 177.8 cm Weight: 83.01 kg BSA: 2.01 m2 Heart Rate: bpm BP: 135 / 90 mmHg Stucco Plasterer: SOPHIA Referring MD: Lynn Sheldon MD Symptoms: I10 - Essential (primary) hypertension Study Quality: Adequate with contrast Conclusions: - 1. Normal LV ejection fraction 60 65% with grade 1 diastolic dysfunction 2. Normal cardiac valvular Doppler 3. Upper limits of normal ascending aortic size at 3.6 cm 4. Normal RV systolic pressure 5. No gross pericardial effusion Findings Procedure Information Contrast agent, definity, is being given per protocol without apparent complications. Left Ventricle Normal left ventricular size, thickness, and systolic function. The visually estimated ejection fraction is between 60-65%. Spectral Doppler is indicative of an impaired relaxation filling pattern. E/E prime ratio is <8, consistent with normal filling pressures. Evidence suggests grade I (mild) diastolic dysfunction. Right Ventricle Normal right ventricular cavity size and systolic function. Atria Both atria are normal in size. There is no evidence of interatrial shunt. Aortic Valve The aortic valve structure and function is likely normal. There is no aortic valve stenosis. There is no aortic valve regurgitation. Mitral Valve Likely normal mitral valve structure and function. There is trace mitral valve regurgitation. There is no mitral valve stenosis. Pulmonic Valve The pulmonic valve was not well visualized. Tricuspid Valve Likely normal tricuspid valve structure and function. There is trace tricuspid valve regurgitation. The right ventricular systolic pressure is normal. The right ventricular systolic pressure is 24 mmHg. Normal right atrial pressure. There is no evidence of pulmonary hypertension. Great Vessels All visible segments of the aorta are normal in size. The pulmonary artery was not well visualized. Venous The inferior vena cava is normal in size and collapses greater than 50% with inspiration. Pericardium/Pleural There is no evidence of pericardial effusion. Prior Study Comparison No prior study available for comparison. Measurements 2D Linear Measurements IVSd: 0.91 0.6-0.9/0.6-1.0 cm LVIDd: 4.91 3.9-5.3/4.2-5.9 cm LVIDd Index: 2.44 2.4-3.2/2.2-3.1 cm/m2 LVIDs: 3.08 2.0-3.6 cm LVPWd: 1.13 0.7-1.1 cm LA Diam: 3.40 2.7-3.8/3.0-4.0 cm LAIDs Index: 1.69 1.5-2.3 cm/m2 LV Mass: 226.63 67-162/88-224 g LV Mass Index: 112.75 43-95/49-115 g/m2 LVOT Diam: 2.30 3.0+(-)1.3 cm 2D Systolic Function EF 4C: 65.20 >55% EF 2C: 62.40 >55% EF BiP: 63.90 >55% Mitral Valve MV Pk E: 0.57 MV PK A: 0.73 MV Decel Time: 198.00 E/A: 0.80 E'Lateral: 8.27 E'Medial: 5.44 E/E' Med: 10.50 E/E' Lat: 6.90 PHT: 58.00 MVA PHT: 3.79 Decel Barron: 2.90 Aortic Valve AoV Pk Osmin: 1.14 AoV Mn Osmin: 0.79 AoV VTI: 0.22 AoV Pk Grad: 5.00 Aov Mn Grad: 3.00 CAMILO Cont.VTI: 3.71 LVOT LVOT Pk Osmin: 0.96 LVOT Mn Osmin: 0.60 LVOT VTI: 0.19 LVOT Pk Grad: 4.00 LVOT Mn Grad: 2.00 LVOT Diam: 2.30 LVOT Area: 4.15 Diastolic Function MV Pk E: 0.57 MV Pk A: 0.73 E/A: 0.80 E'Medial: 5.44 E/E' Med: 10.50 E' Laterial: 8.27 E/E' Lat: 6.90 Right Ventricle TAPSE (mm): 23.50 TVS' Osmin: 10.70 Tricuspid Valve TR Pk Osmin: 2.31 TR Pk Grad: 21.00 RA Press: 3.00 RVSP: 24.00 Great Vessels Aorta Sinus of Valsalva: 3.59 2.0-3.5 cm Ao Asc: 3.60 2.1-3.4 cm Updated in Other Vendor System with Status of Final Rolando Bermeo MD electronically signed on 12/29/2023 11:55:01 AM with status of Final
== END ==
LOC: HO.CARD 13:58
PROVIDERS: PCP Internal Medicine; Visit Provider Internal Medicine
DX: I10 Essential (primary) hypertension (principal)
CPT/HCPCS: 93306; Q9957

== ENCOUNTER → 2023-12-28 14:01 | Outpatient (BNV) | payer OTHER, SELFPAY | PROVIDERS: PCP Internal Medicine; Visit Provider Internal Medicine Cardiovascular Disease | DX: I10 Essential (primary) hypertension (principal); I51.89 Other ill-defined heart diseases | CPT/HCPCS: 93306 ==

== ENCOUNTER 2024-01-12 07:37 | Outpatient (AMB) | payer OTHER, SELFPAY ==
--- NOTE | 2024-01-12 07:50 | A.OFFVIS_ITS ---
Intake Vital Signs 01/12/24 07:55 Height 50 ft 1 in Weight 185 lb BMI 0.4 BP 137/69 Blood Pressure Location Lt brachial Position Sitting Pulse 91 Intake Visit Reasons: Colonoscopy Screening Intake Note: Patient pre colonoscopy screening Patient denies any GI issues. Sheet Heater Required: No Accompanied by: Self / Same As Patient Allergies lisinopril Allergy (Intermediate, Verified 01/12/24 07:50) Cough scallops Adverse Reaction (Unknown, Verified 01/12/24 07:50) VOMITING Medication List - Last Reconciled 01/12/24 by Tennille Momin PA-C fenofibrate 160 mg PO DAILY 90 days fexofenadine (Deena Allergy) 180 mg PO DAILY fluticasone propionate 50 mcg/actuation (Flonase Allergy Relief) 1 spray intranasal Q12H 30 days losartan 50 mg PO DAILY 90 days omeprazole magnesium (Prilosec OTC) 20 mg PO DAILY simvastatin 5 mg PO BEDTIME 90 days HPI HPI Comments History of Present Illness Details A 58 y/o male family history of colon melanoma and polyps- his father- @ 73. Has been taking ppi for many years=- EGD about 15 yeas ago- Hx- polyps vocal cords-had followed with ENT Bowels normal- -he had travel to [place]- following wit h GI upset for about 3 mos- that has resolved-diarrhea -he had lost some weight however he is feeling well at this time-he no longer has diarrhea He feels well GI or general complaints Follows with PCP for or cholesterol and fatty liver No nausea, vomiting, hematemesis, hematochezia fever or chills PFSH Medical History (Updated 01/12/24 @ 10:29 by Tennille Momin PA-C) LFT elevation Dog bite of left thumb Myofascial pain syndrome Blood pressure elevated without history of HTN Allergic rhinitis GERD (gastroesophageal reflux disease) Hypertriglyceridemia Impaired glucose tolerance Surgical History Left breast mass Family History Mother No problems noted. 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 Cognitive needs: No Hearing needs: No Vision needs: No Review of Systems Const All systems reviewed & are unremarkable except as noted in HPI and below Card Denies chest pain and Denies dyspnea Resp Denies dyspnea GI Denies abdominal pain, Reports dyspepsia, Denies heartburn, Denies diarrhea, Denies nausea and Denies vomiting Physical Exam Vital Signs: Last Vital Signs Pulse 91 01/12/24 07:55 BP 137/69 01/12/24 07:55 BMI result Body Mass Index 0.4 Const General: cooperative, healthy appearing, comfortable and no acute distress Orientation/consciousness: patient oriented x3 Limitations: no limitations Eyes Sclerae: sclerae normal Resp Effort & Inspection: normal respiratory effort and able to speak in complete s entences Auscultation: clear to auscultation bilaterally, no rales, no rhonchi and no wheezes Cardio Rate: regular rate Rhythm: regular rhythm Heart sounds: S1 normal heart sound present and S2 normal heart sound present GI Palpation (GI): Soft to palpation and nontender Auscultation: normal bowel sounds Skin General skin exam: no rashes or lesions noted Neuro General: patient oriented x3 Extrem General: Yes full ROM Psych Appearance: grossly normal and well kempt Mental Status: mental status grossly normal Speech and movement: Normal speech and movement present and Clear speech present Affect: normal affect Attitude: cooperative Thought process: Normal thought process present Thought content: Normal thought content present Insight: Good insight present (Psych) Judgement: Good judgement present (Psych) Results Reviewed Results Reviewed: Reviewed ultrasound and labs Assessment & Plan Assessment & Plan (1) Family history of colon cancer in father: Code(s): Z80.0 - Family history of malignant neoplasm of digestive organs (2) Colon cancer screening: Code(s): Z12.11 - Encounter for screening for malignant neoplasm of colon Plan: Screening colonoscopy (3) GERD (gastroesophageal reflux disease): Comment: Good response with PPI-for the past 15 years Code(s): K21.9 - Gastro-esophageal reflux disease without esophagitis Plan: Continue PPI EGD r/o pud, nonulcer dyspepsia other endoscopic findings to account for sx Plan EGD/colon- MG prep Orders: Orders EGD/[place] Combo - GI Use Only Today K21.9 - Gastro-esophageal reflux disease without esophagitis, Z80.0 - Family history of malignant neoplasm of digestive organs Medications: New bisacodyl (Dulcolax (bisacodyl)) Day before procedure @ 12 noon Take 4 tablets by mouth followed by large glass of water 20 mg (4 x 5 mg) PO ONCE 1 day PRN 4 tabs 0RF colonoscopy prep Z12.11 - Encounter for screening for malignant neoplasm of colon polyethylene glycol 3350 (Miralax) Take as directed by mouth the day before your procedure. 238 grams PO ONCE 1 day PRN 238 grams 0RF laxative effect Patient Instructions: Pleasant 58-year-old male history acid reflux, family history rectal melanoma due for screening colonoscopy- Will schedule EGD as well as colonoscopy Discussed procedures, rare risks need for escorted due to anesthesia Agrees to proceed Encouraged to call questions or concerns Coding Level of Care Code New Pt Level 3 (25986) Diagnoses Family history of colon cancer in father Z80.0 Colon cancer screening Z12.11 GERD (gastroesophageal reflux disease) K21.9 Time Spent (min) 30
[2024-01-12 07:55] VITALS: BP 137/69; PULSE 91
== END 2024-01-12 08:15 | disposition home or self-care (01) ==
PROVIDERS: PCP Internal Medicine; Visit Provider Physician Assistant
DX: Z80.0 Family history of malignant neoplasm of digestive organs (principal); Z12.11 Encounter for screening for malignant neoplasm of colon; K21.9 Gastro-esophageal reflux disease without esophagitis
CPT/HCPCS: 99203; 99213

== ENCOUNTER → 2024-01-12 07:37 | Outpatient (BNVA) | payer OTHER, SELFPAY | PROVIDERS: PCP Internal Medicine; Visit Provider Physician Assistant ==

== ENCOUNTER 2024-02-16 08:26 | Outpatient (AMB) | payer OTHER, SELFPAY ==
[2024-02-16 08:27] VITALS: BP 140/76; PULSE 78; O2SAT 98; BMI 27.5
--- NOTE | 2024-02-16 08:27 | A.OFFPC_ITS ---
Vital Signs 02/16/24 08:27 Height 5 ft 10 in Weight 192 lb BMI 27.5 BP 140/76 H Blood Pressure Location Lt brachial Position Sitting Pulse 78 Pulse Source Pulse Oximeter Pulse Oximetry (%) 98 Oxygen Delivery Method Room Air Intake Visit Reasons: TRiglyceride Allergies lisinopril Allergy (Intermediate, Verified 02/16/24 08:28) Cough scallops Adverse Reaction (Unknown, Verified 02/16/24 08:28) VOMITING Medication List - Last Reconciled 02/16/24 by Lynn Sheldon MD bisacodyl (Dulcolax (bisacodyl)) 20 mg (4 x 5 mg) PO ONCE PRN 1 day fenofibrate 160 mg PO DAILY 90 days fexofenadine (Deena Allergy) 180 mg PO DAILY fluticasone propionate 50 mcg/actuation (Flonase Allergy Relief) 1 spray intranasal Q12H 30 days losartan 50 mg PO DAILY 90 days omeprazole magnesium (Prilosec OTC) 20 mg PO DAILY polyethylene glycol 3350 (Miralax) 238 grams PO ONCE PRN 1 day simvastatin 5 mg PO BEDTIME 90 days Tobacco use date assessed: 11/11/23 Dental Screening Dental Screen Date: 02/16/24 Did you have a dental visit in the last 12 months?: Yes Did you have a dental problem in the last 6 months where you did not have access to dental care?: No Was dental information given to patient?: Patient has dentist HPI TRiglyceride HPI Details 59-year-old overweight male with hepatic steatosis hypercholesterolemia hypertension GERD impaired glucose tolerance last seen in November 2023. Patient has followed up with Gastroenterology and will be scheduled for colon cancer screening for April 2024. Echocardiogram done December 2023 Normal LV ejection fraction 60 65% with grade 1 diastolic dysfunction 2. Normal cardiac valvular Doppler 3. Upper limits of normal ascending aort ic size at 3.6 cm 4. Normal RV systolic pressure 5. No gross pericardial effusion on cholesterol med fenofibrate no side effect, knows to retest blood work [facility] Medical History (Updated 02/16/24 @ 08:36 by Lynn Sheldon MD) Cellulitis of left thumb Immunization due Gastroenteritis Pain and swelling of left wrist Dog bite of left thumb Colon cancer screening LFT elevation Myofascial pain syndrome Blood pressure elevated without history of HTN Allergic rhinitis GERD (gastroesophageal reflux disease) Hypertriglyceridemia Impaired glucose tolerance Surgical History Left breast mass Family History Mother No problems noted. 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 1. Little interest or pleasure in doing things: not at all 2. Feeling down, depressed, or hopeless: not at all 3. Trouble falling or staying asleep, or sleeping too much: not at all 4. Feeling tired or having little energy: not at all 5. Poor appetite or overeating: not at all 6. Feeling bad about yourself - or that you are a failure or have let yourself or your family down: not at all 7. Trouble concentrating on things, such as reading the newspaper or watching television: not at all 8. Moving or speaking so slowly that other people could have noticed. Or the opposite - being so fidgety or restless that you have been moving around a lot more than usual: not at all 9. Thoughts that you would be better off or of hurting yourself in some way: not at all Total score: 0 Depression Screening Interpretation: Negative Depression Screening Done: Yes Source: Developed by Drs. Kiko Gray, Katya Melo, Alex Martinez and colleagues, with an educational karis from [employer]. Thrive Questionnaire Date Thrive assessed: 11/11/23 AUDIT C Alcohol Use Questionnaire (AUDIT-C) 1. How often do you have a drink containing alcohol?: 4 or more times a week 2. How many drinks containing alcohol do you have on a typical day when you are drinking?: 1 or 2 3. How often do you have six or more drinks on one occasion?: Never Total Score: 4 ADELE-7 AMB Questionnaire ADELE-7 Date ADELE - 7 assessed: 11/11/23 Source: Developed by Drs. Kiko Gray, Katya Melo, Alex Martinez and colleagues, with an educational karis from [employer]. Physical exam (Primary Care) Vital Signs: Last Vital Signs Pulse 78 02/16/24 08:27 BP 140/76 H 02/16/24 08:27 Pulse Ox 98 02/16/24 08:27 Oxygen Delivery Method Room Air 02/16/24 08:27 BMI result Body Mass Index 27.5 Tobacco/Smoking Status: Tobacco use Status Tobacco use date assessed 11/11/23 02/16/24 08:31 Patient Tobacco Use Status Former Tobacco user 02/16/24 08:31 Tobacco use type Cigarette 02/16/24 08:31 e-Cigarette/Vaping Use Never Used 02/16/24 08:31 PHQ-9: PHQ-9 Score PHQ-9: Total score 0 02/16/24 08:31 Depression Screening Interpretation: Negative Thrive Assessment: Date of Thrive Assessment Date Thrive assessed 11/11/23 02/16/24 08:31 Const General: alert; No acute distress Eyes Conjunctivae: conjunctivae normal Resp Auscultation: clear to auscultation bilaterally Cardio Rate: regular rate Rhythm: regular rhythm GI Inspection: Yes normal to inspection Extrem General: Yes normal to inspection and No edema Assessment and Plan Assessment & Plan (1) Hepatic steatosis: Code(s): K76.0 - Fatty (change of) liver, not elsewhere classified Plan: Low-fat diet and exercise (2) Hypertriglyceridemia: Code(s): E78.1 - Pure hyperglyceridemia Plan: Patient has been placed on fenofibrate 160 mg once a day and simvastatin 5 mg once a day LDL goal of less than 130 and triglyceride of less than 150. Avoid fried foods, chicken skin, eggs, butter margarine, pastries and meat. Be it pork or beef they have a lot of cholesterol (3) Impaired glucose tolerance: Code(s): R73.02 - Impaired glucose tolerance (oral) Plan: Decrease the amount of carbohydrate intake, pasta, bread, rice and potatoes are all sugar and that is aside from all the sweet stuff, remember that fruits are good but they are Sweet also. (4) Hypertension: Code(s): I10 - Essential (primary) hypertension Plan: Continue with blood pressure medication. Decrease salt intake and exercise on losartan 50 mg once a day. BP high here but states BP good at home. Had long discussion with the patient regarding blood pressure control and for him to monitor at home and if systolic blood pressure 140 or above or diastolic of 90 or above patient is advised to make an appointment. Low-salt intake and keep active Coding Level of Care Code Est Pt Level 4 (88171) Diagnoses Hepatic steatosis K76.0 Hypertriglyceridemia E78.1 Impaired glucose tolerance R73.02 Hypertension I10
== END 2024-02-16 10:17 | disposition home or self-care (01) ==
PROVIDERS: PCP Internal Medicine; Visit Provider Internal Medicine
DX: K76.0 Fatty (change of) liver, not elsewhere classified (principal); E78.1 Pure hyperglyceridemia; R73.02 Impaired glucose tolerance (oral); I10 Essential (primary) hypertension
CPT/HCPCS: 99214

== ENCOUNTER 2024-05-14 08:53 | Outpatient (AMB) | payer OTHER, SELFPAY ==
--- NOTE | 2024-05-14 08:59 | MHC.OFFVIS ---
Intake Visit Reasons: Right Knee Injection Intake Note: Stefano is a 59 year old male who presents today for a Right Knee Injection. Last Injection 04/04/23, this injectiong took a few weeks for aafect but otherwise has worked well Allergies lisinopril Allergy (Intermediate, Verified 02/16/24 08:28) Cough scallops Adverse Reaction (Unknown, Verified 02/16/24 08:28) VOMITING HPI HPI Right Knee Injection: Details: Stefano is a 59 year old male who presents today for a Right Knee Injection. Last Injection 04/04/23, this injection took a few weeks for but otherwise has worked well. He describes pain in his knee mostly medially. [facility] Medical History (Updated 05/15/24 @ 12:46 by Raymond Raza MD) Cellulitis of left thumb Immunization due Gastroenteritis Pain and swelling of left wrist Dog bite of left thumb Colon cancer screening LFT elevation Myofascial pain syndrome Blood pressure elevated without history of HTN Allergic rhinitis GERD (gastroesophageal reflux disease) Hypertriglyceridemia Impaired glucose tolerance Surgical History Left breast mass Family History Mother No problems noted. 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 Site was prepped using aseptic technique. Patient tolerated the procedure well. Primary Site: right knee Approach Used: anterolateral Coding 38784 - Large joint Procedure code (CPT) selection complete Assessment & Plan Assessment & Plan (1) Localized osteoarthritis of right knee: Code(s): M17.11 - Unilateral primary osteoarthritis, right knee Category: Medical Plan: This is a 59-year-old with right knee osteoarthritis. He had an MRI about a year ago and definitely has medial compartment disease. I injected his right knee. I discussed treatment options in the future. At this point he may follow up for repeat injections no sooner than 3 months. Coding Level of Care Code Est Pt Level 3 (09443) Diagnoses Localized osteoarthritis of right knee M17.11 CPT Codes Coding - 79945 Large joint: 58195 - Large joint ([id number])
== END 2024-05-14 09:09 | disposition home or self-care (01) ==
PROVIDERS: PCP Internal Medicine; Visit Provider Orthopaedic Surgery
DX: M17.11 Unilateral primary osteoarthritis, right knee (principal)
CPT/HCPCS: 20610; 99213

== ENCOUNTER → 2024-05-14 08:53 | Outpatient (BNVA) | payer OTHER, SELFPAY | PROVIDERS: PCP Internal Medicine; Visit Provider Orthopaedic Surgery | DX: M17.11 Unilateral primary osteoarthritis, right knee (principal) | CPT/HCPCS: 20610; J0665; J1100 ==

== ENCOUNTER 2024-05-24 08:04 | Day surgery (SDC) | payer OTHER, SELFPAY ==
[2024-05-22 14:46] VITALS: BMI 27.5
[2024-05-24 08:22] VITALS: BP 130/72; PULSE 62; RESP 16; TEMP 36.3; O2SAT 98; BMI 26.8
--- NOTE | 2024-05-24 08:59 | P.CONAN_ITS ---
HPI - Anesthesia Eval Consult details Narrative: 59 yo M presenting for EGD and colonoscopy. [facility] Active Problems Active Problems: All Active Problems Localized osteoarthritis of right knee (Acute) Family history of colon cancer in father (Acute) Hepatic steatosis (Acute) Internal derangement of right knee (Acute) Hypercholesterolemia (Acute) Hypertension (Acute) Annual physical exam (Acute) Allergic rhinitis (Acute) Myofascial pain syndrome (Acute) GERD (gastroesophageal reflux disease) (Acute) Hypertriglyceridemia (Acute) Impaired glucose tolerance (Acute) Past Medical History Medical History (Updated 05/15/24 @ 12:46 by Raymond Raza MD) LFT elevation Colon cancer screening Pain and swelling of left wrist Gastroenteritis Immunization due Cellulitis of left thumb Dog bite of left thumb Myofascial pain syndrome Blood pressure elevated without history of HTN Allergic rhinitis GERD (gastroesophageal reflux disease) Hypertriglyceridemia Impaired glucose tolerance Family History Family History Mother No problems noted. Father Cancer Melanoma Prostate cancer Family history of problems with anesthesia: No Surgical History Surgical History (Updated 05/22/24 @ 14:48 by Cherry Arnett RN) History of esophagogastroduodenoscopy (EGD) History of laryngoscopy Left breast mass History of Problems with Anesthesia: No Social History Social History Housing: House Alcohol intake: current Alcohol intake frequency: a few times a week Comment: 5 days a week 1-2 glasses Patient Tobacco Use Status: Former Tobacco user Tobacco use type: Cigarette Years Smoked: quit 1989 e-Cigarette/Vaping Use: Never Used Second Hand Smoke Exposure: No Use of substances other than those prescribed or required for medical reasons: Yes Have you been hit, kicked, punched, or otherwise hurt by someone within the past year? 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 Cognitive needs: No Hearing needs: No Vision needs: Yes Meds Allergies Allergy/AdvReac Type Severity Reaction Status Date / Time lisinopril Allergy Intermediate Cough Verified 02/16/24 08:28 scallops AdvReac Intermediate VOMITING Verified 05/22/24 14:47 Home Medications ?Medication ?Instructions ?Recorded ?Confirmed ?Last Taken ?Type fexofenadine 180 mg tablet 180 mg PO DAILY 02/16/21 05/22/24 Unknown History (Deena Allergy) omeprazole magnesium 20 mg 20 mg PO DAILY 02/16/21 05/22/24 Unknown History tablet,delayed release (Prilosec OTC) Exam Exam Date and Time: 05/24/24 0858 Height,Weight and Vital Signs: Height 5 ft 10 in Weight 84.822 kg Last Vital Signs Temp 97.3 F 05/24/24 08:22 Pulse 62 05/24/24 08:22 Resp 16 05/24/24 08:22 BP 130/72 05/24/24 08:22 Pulse Ox 98 05/24/24 08:22 O2 Del Method Room Air 05/24/24 08:22 Airway Mallampati Class: I TM Dist: >3cm Neck ROM: Full Loose/Missing/Broken Teeth: No (patient denies any loose or broken teeth) Heart: S1S2 Lungs: CTAB Assessment and Plan Assessment Anesthesia Assessment: Anesthesia Plan Discussed and Chart Reviewed Final Anesthetic Review Family History of Problems with Anesthesia: No History of Problems with Anesthesia: No NPO: Yes ASA Class: II Final Preanesthetic Review: No Changes in Pt Med Stat, Meds/Allgs Chart Reviewed, Consent Obtained/Reviewed and Anes Risks/Benef Reviewed Patient Risk: Low Procedure Risk: Low Anesthetic Plan Anesthetic Plan: MAC: and Agree w/ Assess. and Plan Disposition: Standard PACU
--- NOTE | 2024-05-24 08:59 | MHC.SHP ---
Pre-Procedural Eval Section A - 24 Hr Update-Section A only Date of Service: 05/24/24 Section B - Complete if H&P > 30 days Chief Complaint: Encounter for screening for malignant neoplasm of Details of Present Illness: father CRC Relevant Family History (Specify if Yes): Yes Relevant Social History: Alcohol Use Present Medications: None Medical History: Significant History ( LFT elevation Dog bite of left thumb Myofascial pain syndrome Blood pressure elevated without history of HTN Allergic rhinitis GERD (gastroesophageal reflux disease) Hypertriglyceridemia Impaired glucose tolerance) History of Previous Operations: Relevant previous surgery/procedure and date(s) ( Left breast mass) Allergies: Allergies Allergy/AdvReac Type Severity Reaction Status Date / Time lisinopril Allergy Intermediate Cough Verified 02/16/24 08:28 scallops AdvReac Intermediate VOMITING Verified 05/22/24 14:47 Review of Systems Sugical H&P ROS: Negative: Constitution, Cardiovascular, Respiratory, Neurological, Psychiatric, Hem-Onc, Allergic/Immunologic, Gastrointestinal, Genitourinary, Musculoskeletal, Integumentary, Endocrine and Eyes/Ears/Nose/Throat Exam Surgical H&P Exam: Normal: HEENT, Normal: Heart, Normal: Lungs, Normal: Extremities, Normal: Abdomen, Normal: Skin and Normal: Neurological Plan Diagnosis/Plan: Unchanged I have reviewed the history and physical and performed a pertinent physical examination on my patient. No changes have occurred unless specified. EGD for hx of gerd, r/o segura Time Spent With Patient Time: Total time managing care of this patient today ____ minutes.
[2024-05-24] MEDS: Lactated Ringers 1,000 ML 100 ML IVCONT (09:06)
--- NOTE | 2024-05-24 09:31 | HO.OPN-COLON ---
Colonoscopy Operative Note Operative Note Date of Service: 05/24/24 Narrative: Operative Information Procedure Description: EGD, Colonoscopy Indication: screening, GERD Anesthesia: MAC FLEXIBLE TRANSORAL UPPER GASTROINTESTINAL ENDOSCOPY AND COLONOSCOPY PROCEDURE NOTE UPPER ENDOSCOPY Consent: Indications for the procedure and potential complications of bleeding, perforation, reaction to medications and missed diagnosis were discussed with the patient and informed consent was obtained. Instrument: Olympus GIF H 190 J mid size upper endoscope Monitoring: Vital signs and clinical assessment, continuous EKG monitoring, Pulse oximetry, Carbon Dioxide monitoring and blood pressure monitoring were done throughout the procedure. Procedure: The patient was placed in the left lateral decubitis position and pre-procedure medications were administered and a bite block was placed. The endoscope was inserted into the mouth and advanced under direct vision to the third part of duodenum. A careful inspection was made as the upper endoscope was withdrawn including a retroflexed examination of the proximal stomach; Findings and interventions are described below. Findings: Larynx:normal Esophagus: GE junction at 44 cm, diaphragm hiatus at 44 cm, possible short segment barretts with 2 small salmon pink tongues, bx taken Stomach: Patchy erythema. Biopsies were obtained. Grade 2 flap valve on retroflexed examination of the cardia. Duodenum: Normal bulb and descending duodenum, Intervention: Biopsies as noted above, COLONOSCOPY Instrument: Olympus variable stiffness pediatric scope 190L Colonoscopy Monitoring: Vital signs and clinical assessment, continuous EKG monitoring, Pulse oximetry, Carbon Dioxide monitoring and blood pressure monitoring were done throughout the procedure. Colon withdrawal time was 10 minutes. Procedure: The patient was placed in the left lateral decubitis position and pre-procedure medications were administered. After a digital rectal examination of the ano-rectum, the video colonoscope was inserted into the rectum and advanced through the colon to the cecum/TI. The colonoscope was slowly withdrawn in a retrograde panoramic fashion and the colon mucosa was carefully examined including a retroflexed view of the rectum. Findings and interventions are described below. Procedure Difficulty:moderate Findings: Terminal Ileum-normal Cecum:normal Retroflexion- 6-7 mm sessile polyp removed with cold snare, not retrieved -pit markings consistent with small adenoma Ascending Colon: normal Transverse Colon -normal Descending Colon:normal Sigmoid Colon: normal Rectum: Retroflexion with small internal hemorrhoids, grade I Anorectum - normal Colon preparation: Peninsula Bowel Preparation Scale Right colon; 2 Transverse colon: 2 Left colon; 2 (0 = Unprepared colon segment with mucosa not seen due to solid stool that cannot be cleared. 1 = Portion of mucosa of the colon segment seen, but other areas of the colon segment not well seen due to staining, residual stool and/or opaque liquid. 2 = Minor amount of residual staining, small fragments of stool and/or opaque liquid, but mucosa of colon segment seen well. 3 = Entire mucosa of colon segment seen well with no residual staining, small fragments of stool or opaque liquid) Impression and Post Procedure Diagnosis: Endoscopy Findings: gastritis possible barretts Colonoscopy Findings: colon polyp hemorrhoids, internal Plan: Await Pathology results Repeat Colonoscopy in 5 years due to polyp removed or earlier if clinically indicated High fiber diet leaflet avoid straining at stool, epsom salts and sitz bath, anusol supps or cream if Barretts pos then repeat EGD in 5 yrs, cont PPI with multi vitamin and vit d supplement Above findings were reviewed with the patient and relevant handouts were provided if indicated.
[2024-05-24 09:51] VITALS: BP 102/64; PULSE 61; RESP 16; TEMP 36.1; O2SAT 97
[2024-05-24 10:06] VITALS: BP 117/70; PULSE 65; RESP 18; TEMP 36; O2SAT 97
== END 2024-05-24 10:45 | disposition home or self-care (01) ==
PROVIDERS: PCP Internal Medicine; Visit Provider Internal Medicine Gastroenterology
PROC: (CPT 45385; principal; 2024-05-24 09:40)
DX: Z12.11 Encounter for screening for malignant neoplasm of colon (principal); Z80.0 Family history of malignant neoplasm of digestive organs; K63.5 Polyp of colon; K64.0 First degree hemorrhoids; K21.9 Gastro-esophageal reflux disease without esophagitis; K22.70 Barrett's esophagus without dysplasia; K29.70 Gastritis, unspecified, without bleeding; K44.9 Diaphragmatic hernia without obstruction or gangrene; M79.18 Myalgia, other site; R03.0 Elevated blood-pressure reading, without diagnosis of hypertension; J30.9 Allergic rhinitis, unspecified; E78.1 Pure hyperglyceridemia; R79.89 Other specified abnormal findings of blood chemistry; R73.02 Impaired glucose tolerance (oral); Z79.51 Long term (current) use of inhaled steroids; Z79.899 Other long term (current) drug therapy; Z88.8 Allergy status to other drugs, medicaments and biological substances; Z87.891 Personal history of nicotine dependence
CPT/HCPCS: 45385; 43239; 88305; 88313; 88342; J1596; J2250; J2704

== ENCOUNTER → 2024-05-24 08:04 | Outpatient (BNV) | payer OTHER, SELFPAY | PROVIDERS: PCP Internal Medicine; Visit Provider Internal Medicine Gastroenterology | DX: Z12.11 Encounter for screening for malignant neoplasm of colon (principal); K64.0 First degree hemorrhoids; K21.9 Gastro-esophageal reflux disease without esophagitis; K29.70 Gastritis, unspecified, without bleeding; K22.70 Barrett's esophagus without dysplasia | CPT/HCPCS: 43239; 45385 ==

== ENCOUNTER 2024-11-09 06:07 | Outpatient (REF) | payer OTHER, SELFPAY ==
[2024-11-09 06:27] LABS: MANUAL DIFF FLAG NO
[2024-11-09 07:13] LABS: Basophils Absolute Auto 0.1 X10*3/uL (0.0-0.2); Basophils Percent Auto 1.1 % (0-2); Eosinophils Absolute Auto 0.3 X10*3/uL (0.0-0.4); Eosinophils Percent Auto 4.6 % (0-4); Hematocrit 41.1 % (42.0-52.0); Hemoglobin 14.1 g/dl (14.0-18.0); Imm Gran Abs Auto 0.04 X10*3/uL (0.00-0.03); Imm Gran Pct Auto 0.7 % (0.0-0.4); Lymphocytes Absolute Auto 1.4 X10*3/uL (1.2-4.9); Lymphocytes Percent Auto 23.6 % (20-40); Mean Corpuscular HGB Conc 34.3 g/dl (31.0-36.0); Mean Corpuscular Hemoglobin 31.5 pg (27.0-33.0); Mean Corpuscular Volume 91.9 fL (80.0-98.0); Mean Platelet Volume 9.6 fL (9.4-12.4); Monocytes Absolute Auto 0.8 X10*3/uL (0.1-1.2); Neutrophils Absolute Auto 3.5 x10*3/uL (2.0-8.3); Platelet Count 295 X10*3/uL (160-400); Red Blood Count 4.47 X10*6/uL (4.60-5.80); Red Cell Distribution Width 12.2 % (11.0-16.0); White Blood Count 6.1 X10*3/uL (4.8-10.8)
[2024-11-09 07:38] LABS: Estimated Average Glucose 111 mg/dL; Hemoglobin A1C 133.7546 umol/L; Hemoglobin A1c % 5.5 % (<6.0); Total Hemoglobin (HGBA1C) 3696.6144 umol/L
[2024-11-09 07:59] LABS: Alanine Aminotransferase 28 U/L (0-40); Albumin Level 4.4 g/dL (3.5-5.0); Alkaline Phosphatase 52 U/L (39-117); Anion Gap 11 (12-20); Aspartate Amino Transferase 22 U/L (5-37); Bilirubin Total 0.4 mg/dL (0.0-1.0); Blood Urea Nitrogen 26 mg/dL (9-16); Calcium 9.4 mg/dL (8.4-10.2); Carbon Dioxide 25 mmol/L (22-29); Chloride 104 mmol/L (96-108); Cholesterol 193 mg/dL (<200); Estimated Glomerular Filt Rate > 60; Glucose Random 121 mg/dL (60-115); HDL Cholesterol 41 mg/dL (>40); LDL Cholesterol Calculated 118 mg/dL (<100); Potassium 4.1 mmol/L (3.3-5.1); Sodium 136 mmol/L (135-145); Total Protein 7.4 g/dL (6.5-8.0); Triglycerides 173 mg/dL (<150)
[2024-11-09 08:15] LABS: Free T4 (Free Thyroxine) 1.07 ng/dL (0.71-1.85); Thyroid Stimulating Hormone 0.99 uIU/mL (0.32-4.0)
[2024-11-09 08:23] LABS: Folate 7.7 ng/mL (> or = 4.0); Prostate Specific Antigen Scr 1.56 ng/mL (<0.05-4.0); Vitamin B12 425 pg/mL (200-900)
== END 2024-11-09 06:08 | disposition home or self-care (01) ==
LOC: HO.LAB 06:07
PROVIDERS: PCP Internal Medicine; Visit Provider Internal Medicine
DX: E78.00 Pure hypercholesterolemia, unspecified (principal); E78.1 Pure hyperglyceridemia; Z12.5 Encounter for screening for malignant neoplasm of prostate; Z13.1 Encounter for screening for diabetes mellitus
CPT/HCPCS: 36415; 80053; 80061; 82607; 82746; 83036; 84153; 84439; 84443; 85025

== ENCOUNTER 2024-11-13 08:45 | Outpatient (AMB) | payer OTHER, SELFPAY ==
[2024-11-13 08:51] VITALS: BP 148/90; PULSE 100; O2SAT 97; BMI 27.8
--- NOTE | 2024-11-13 08:51 | A.OFFPC_ITS ---
Vital Signs 11/13/24 08:51 Height 5 ft 10 in Weight 194 lb BMI 27.8 BP 148/90 H Blood Pressure Location Lt brachial Position Sitting Pulse 100 Pulse Source Pulse Oximeter Pulse Oximetry (%) 97 Oxygen Delivery Method Room Air Intake Visit Reasons: Annual exam Allergies lisinopril Allergy (Intermediate, Verified 11/13/24 08:52) Cough scallops Adverse Reaction (Intermediate, Verified 11/13/24 08:52) VOMITING Medication List - Last Reconciled 11/13/24 by Lynn Sheldon MD bisacodyl (Dulcolax (bisacodyl)) 20 mg (4 x 5 mg) PO ONCE PRN 1 day fenofibrate 160 mg PO DAILY 90 days fexofenadine (Deena Allergy) 180 mg PO DAILY fluticasone propionate 50 mcg/actuation (Flonase Allergy Relief) 1 spray intranasal Q12H 30 days losartan 50 mg PO DAILY 90 days omeprazole magnesium (Prilosec OTC) 20 mg PO DAILY polyethylene glycol 3350 (Miralax) 238 grams PO ONCE PRN 1 day simvastatin 5 mg PO BEDTIME 90 days Tobacco use date assessed: 11/13/24 Dental Screening Dental Screen Date: 11/13/24 Did you have a dental visit in the last 12 months?: Yes Did you have a dental problem in the last 6 months where you did not have access to dental care?: No Was dental information given to patient?: Patient has dentist HPI Annual exam HPI Details BP at home is good The patient is a 59-year-old male presenting for a wellness visit and management of chronic conditions including hypercholesterolemia, GERD, impaired glucose tolerance, essential hypertension, hepatic steatosis, Gordon's esophagus, and osteoarthritis of the right knee. He was last seen in January 2020. His hypercholesterolemia is managed with simvastatin and fenofibrate, and recent laboratory tests indicate a reduction in total cholesterol from 225 mg/dL to 193 mg/dL, and triglycerides from 269 mg/dL to 173 mg/dL. Essential hypertension is controlled with losartan, with reported home readings around 130/85 mmHg. GERD and Gordon's esophagus are being treated with omeprazole; the patient reports consistent medication adherence and lifestyle modifications to manage symptoms. Impaired glucose tolerance is indicated by a fasting blood sugar of 121 mg/dL, although hemoglobin A1c remains within normal limits. Hepatic steatosis was previously diagnosed but liver function tests remain normal. The patient reports receiving a right knee injection for arthritis and is following up with orthopedics periodically. - Influenza vaccine received - Flu shot current - Colonoscopy current with follow-up rec ommended in 5 years - Blood pressure management with leilani gorman advice for home monitoring - Dietary advice for cholesterol and glu cose control emphasizing low-fat diet and exercise - GERD management through dietary modifi cations and bed positioning - Discussion on shingles vaccine as a pr eventative measure - Denies tobacco and recreational drug u se - Consumes alcohol rarely, approximately two glasses of wine every couple of weeks - Regular exercise includes treadmill us e five days a week - Reports a diet with high consumption o f water - Cautions against excessive intake of s weets, pasta, bread, and rice - Family history notable for prostate ca ncer and melanoma in father - General: Denies fever, chills, or fati teresa - Cardiovascular: Denies chest pain or p alpitations - Gastrointestinal: Denies nausea, vomit ing, or swallowing difficulties - Respiratory: Denies dyspnea and cough - Neurological: Denies dizziness or sync ope - Genitourinary: Reports waking once at night to urinate depending on water intake - Labs: - Fasting blood glucose: 121 mg/ dL - Hemoglobin A1c: Normal - Total cholesterol: 193 mg/dL - Triglycerides: 173 mg/dL - PSA, B12, folic acid, thyroid panel: N ormal - Hepatitis profile: Negative [facility] Medical History (Updated 11/13/24 @ 09:25 by Lynn Sheldon MD) LFT elevation Colon cancer screening Pain and swelling of left wrist Gastroenteritis Immunization due Cellulitis of left thumb Dog bite of left thumb Myofascial pain syndrome Blood pressure elevated without history of HTN Allergic rhinitis GERD (gastroesophageal reflux disease) Hypertriglyceridemia Impaired glucose tolerance Surgical History (Updated 05/22/24 @ 14:48 by Cherry Arnett RN) History of esophagogastroduodenoscopy (EGD) History of laryngoscopy Left breast mass Family History Mother No problems noted. 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 1. Little interest or pleasure in doing things: not at all 2. Feeling down, depressed, or hopeless: not at all 3. Trouble falling or staying asleep, or sleeping too much: not at all 4. Feeling tired or having little energy: not at all 5. Poor appetite or overeating: not at all 6. Feeling bad about yourself - or that you are a failure or have let yourself or your family down: not at all 7. Trouble concentrating on things, such as reading the newspaper or watching television: not at all 8. Moving or speaking so slowly that other people could have noticed. Or the opposite - being so fidgety or restless that you have been moving around a lot more than usual: not at all 9. Thoughts that you would be better off or of hurting yourself in some way: not at all Total score: 0 Depression Screening Interpretation: Negative Depression Screening Done: Yes 97588 - PHQ-9 Billing: Yes Source: Developed by Drs. Kiko Gray, Katya Melo, Alex Martinez and colleagues, with an educational karis from [employer]. Thrive Questionnaire Date Thrive assessed: 11/13/24 I am a: Patient What is your living situation today?: I have a steady place to live Within the past 12 months, did the food you bought not last and you didn't have the money to get more?: Never true Within the past 12 months, did you worry whether your food would run out before you got money to buy more?: Never true Do you have trouble paying for medicines?: No Do you have trouble getting transportation to medical appointments?: No Do you have trouble paying your heating and electricity bill?: No Do you have trouble taking care of your child, family member or friend?: No Do you have trouble with day-to-day activities such as bathing, preparing meals, shopping, managing finances, etc.?: No Are you currently unemployed and looking for a job?: No Are you interested in more education?: No Please select the resources that you would like help with: None Currently or been in a relationship where the following occur: No concerns reported THRIVE Score: 0 AUDIT C Alcohol Use Questionnaire (AUDIT-C) 1. How often do you have a drink containing alcohol?: 2-4 times a month 2. How many drinks containing alcohol do you have on a typical day when you are drinking?: 3 or 4 3. How often do you have six or more drinks on one occasion?: Less than monthly Total Score: 4 ADELE-7 AMB Questionnaire ADELE-7 Date ADELE - 7 assessed: 11/11/23 Feeling nervous, anxious, or on edge: 0 = Not at all Not being able to stop or control worryin = Not at all Worrying too much about different things: 0 = Not at all Trouble relaxin = Not at all Being so restless that it is hard to sit still: 0 = Not at all Becoming easily annoyed or irritable: 0 = Not at all Feeling afraid as if something awful might happen: 0 = Not at all Total ADELE-7 score (0-4 normal; 5-9 mild; 10-14 moderate; 15-21 severe): 0 Source: Developed by Drs. Kiko Gray, Katya Melo, Alex Martinez and colleagues, with an educational karis from [employer]. ADELE-7 Assessment Billing ADELE-7 Assessment Tool: ADELE-7 Assessment 60623 Review of Systems Const Denies poor appetite and Denies weakness Eyes Denies no additional complaints ENT Reports Normal hearing present, Denies dizziness, Denies nasal congestion, Denies tinnitus and Denies sore throat Card Denies chest pain, Denies syncope, Denies rapid heart rate and Denies dyspnea Resp Denies cough and Denies dyspnea GI Denies change in stool character, Reports constipation, Denies diarrhea, Denies nausea and Denies vomiting Denies dysuria and Denies urinary frequency Neuro Reports Normal hearing present, Denies confusion, Denies dizziness, Denies syncope and Denies weakness Psych Denies confusion Physical exam (Primary Care) Vital Signs: Last Vital Signs Pulse 100 11/13/24 08:51 BP 148/90 H 11/13/24 08:51 Pulse Ox 97 11/13/24 08:51 Oxygen Delivery Method Room Air 11/13/24 08:51 BMI result Body Mass Index 27.8 Tobacco/Smoking Status: Tobacco use Status Tobacco use date assessed 11/13/24 11/13/24 08:52 Patient Tobacco Use Status Former Tobacco user 11/13/24 08:52 Tobacco use type Cigarette 11/13/24 08:52 e-Cigarette/Vaping Use Never Used 11/13/24 08:52 PHQ-9: PHQ-9 Score PHQ-9: Total score 0 11/13/24 09:01 Depression Screening Interpretation: Negative Thrive Assessment: Date of Thrive Assessment Date Thrive assessed 11/13/24 11/13/24 08:52 Currently or been in a relationship where the following occur: No concerns reported Const General: No confusion Orientation/consciousness: No confusion HENMT Head: Yes normocephalic Ears: external ears normal and TM's normal bilaterally Face and sinus: Yes normal facial exam Mouth: moist mucous membranes Throat: Yes tonsils normal Eyes Conjunctivae: conjunctivae normal Pupils: Equal, round and reactive pupils present and Pupil accommodation reflex normal Direct Ophthalmoscopy: normal light reflex Neck Neck: No lymphadenopathy Thyroid: Thyroid normal Chest Chest palpation & inspection: normal inspection of the chest Resp Effort & Inspection: normal respiratory effort and no audible wheezes Auscultation: clear to auscultation bilaterally, no crackles, no wheezes and lung sounds not diminished Cardio Rate: regular rate Rhythm: regular rhythm Peripheral pulses: radial pulses present and dorsalis pedis present GI Palpation (GI): no masses Auscultation: normal bowel sounds and normoactive bowel sounds Rectal Exam - Male: Yes deferred Skin General skin exam: no rashes or lesions noted Rashes: no rashes Neuro General: No confusion Cranial nerves: Yes Equal, round and reactive pupils present and Yes Normal hearing present Cognition (Neuro): normal cognition Gait exam (Neuro): Normal gait present Motor exam (neuro): 5/5 motor strength present throughout Deep tendon reflexes (DTR's): Right brachioradialis reflex intensity grade: 2+, Left brachioradialis reflex intensity grade: 2+, Right patellar reflex intensity grade: 2+ and Left patellar reflex intensity grade: 2+ Extrem General: No edema Coding Level of Care Code Est Pt Prev Care 40-64y(11915) Diagnoses Annual physical exam Z00.00 Hypertension I10 Hypercholesterolemia E78.00 Hepatic steatosis K76.0 Gordon esophagus determined by biopsy K22.70 Impaired glucose tolerance R73.02 Localized osteoarthritis of right knee M17.11 Additional Codes ADELE-7 Assessment Billing - ADELE-7 Assessment Tool: ADELE-7 Assessment 57865 ([id number]) PHQ-9 - 27560 - PHQ-9 Billing: Yes ([id number]) Assessment & Plan Assessment & Plan (1) Annual physical exam: Code(s): Z00.00 - Encounter for general adult medical examination without abnormal findings Category: Medical Plan: Patient is advised to eat healthy, keep well hydrated, keep active and have adequate sleep. (2) Hypertension: Code(s): I10 - Essential (primary) hypertension Category: Medical Plan: Continue with blood pressure medication. Decrease salt intake and exercise patient on losartan 50 mg once a day (3) Hypercholesterolemia: Code(s): E78.00 - Pure hypercholesterolemia, unspecified Category: Medical Plan: Avoid fried foods, chicken skin, eggs, butter margarine, pastries and meat. Be it pork or beef they have a lot of cholesterol on simvastatin 5 mg at bedtime (4) Hepatic steatosis: Code(s): K76.0 - Fatty (change of) liver, not elsewhere classified Category: Medical Plan: Low-fat diet and exercise (5) Gordon esophagus determined by biopsy: Code(s): K22.70 - Gordon's esophagus without dysplasia Category: Medical Plan: Avoid the foods that causes that usually spicy foods, tomato products, juices, coffee, soda and foods that your sensitive to. After eating do not lie down, allow 3-4 hours before in lie down. And keep the head of bed above 30 degrees to avoid the acid from going up. On omeprazole (6) Impaired glucose tolerance: Code(s): R73.02 - Impaired glucose tolerance (oral) Category: Medical Plan: Decrease the amount of carbohydrate intake, pasta, bread, rice and potatoes are all sugar and that is aside from all the sweet stuff, remember that fruits are good but they are Sweet also. (7) Localized osteoarthritis of right knee: Code(s): M17.11 - Unilateral primary osteoarthritis, right knee Category: Medical Plan: Patient follows up with ortho and had injections done Plan - Continue current medications: simvastatin, losartan, omeprazole, and fenofibrate - Monitor fasting blood glucose levels; consider re-evaluation in six months - Encourage continuation of low-fat diet and regular exercise for lipid and glucose management - Recommend shingles vaccination series as a preventive measure - Advise ongoing home blood pressure monitoring; maintain blood pressure below 140/90 mmHg - Educate on dietary modifications to manage GERD symptoms, including avoiding trigger foods, not lying down after eating, and maintaining head elevation during sleep - Schedule follow-up in six months; complete blood work prior to the visit I discussed with the patient the management of his chronic conditions, emphasizing the importance of medication adherence and lifestyle modifications. We reviewed the recent lab results and the significant improvements in cholesterol levels due to medication and diet. I addressed the slightly elevated fasting glucose and advised monitoring, reiterating the importance of dietary control to prevent progression to diabetes. We discussed potential side effects of medications and the importance of blood pressure management. The benefits and possible discomfort of the shingles vaccine were explained. I advised on the importance of regular follow-ups and timely laboratory assessments to monitor his health parameters. - Continue with the prescribed medications: simvastatin, losartan, omeprazole, and fenofibrate - Maintain a diet low in fats and sugars; monitor and limit carbohydrate intake - Engage in regular physical activity; continue using the treadmill five days a week - Monitor blood pressure at home; report readings above 140/90 mmHg - Follow dietary and lifestyle recommendations for GERD management - Schedule blood work in six months for fasting glucose and lipid profile - Obtain the shingles vaccination as advised - Contact the clinic if symptoms worsen or for further consultation Orders: Orders Comprehensive Met. Panel 6 Months R73.02 - Impaired glucose tolerance (oral) Hemoglobin A1c 6 Months R73.02 - Impaired glucose tolerance (oral) Lipid Panel 6 Months E78.00 - Pure hypercholesterolemia, unspecified, R73.02 - Impaired glucose tolerance (oral)
--- OUTSIDE RECORDS SUMMARY | 2024-11-13 09:13 | XMS_ITS ---
Author Name [facility] Organization Unknown History of Medication Use Medication Directions Dispensed Refills Start Date End Date Stat us benzonatateTake 1 ca psule (Oral) 3 times per day PRN - Cough for 5 [id number] times per [id number] 12/19/2023 active Problems Problem Status Onset Date Problem Type Date of Resoluti on Source Acute bronchitis, unspecified active 2023-12-19 ProblemAct [facility] Hypertension active ProblemAct [facility] Other specified abnormal findings of blood chemistry active ProblemAct [facility] Acute pharyngitis due to other specified organisms active 2023-12-15 ProblemAct [facility]
== END 2024-11-13 09:48 | disposition home or self-care (01) ==
PROVIDERS: PCP Internal Medicine; Visit Provider Internal Medicine
DX: Z00.00 Encounter for general adult medical examination without abnormal findings (principal); I10 Essential (primary) hypertension; E78.00 Pure hypercholesterolemia, unspecified; K76.0 Fatty (change of) liver, not elsewhere classified; K22.70 Barrett's esophagus without dysplasia; R73.02 Impaired glucose tolerance (oral); M17.11 Unilateral primary osteoarthritis, right knee

== ENCOUNTER → 2024-11-13 08:45 | Outpatient (BNVA) | payer OTHER, SELFPAY | PROVIDERS: PCP Internal Medicine; Visit Provider Internal Medicine | DX: Z00.00 Encounter for general adult medical examination without abnormal findings (principal); I10 Essential (primary) hypertension; E78.00 Pure hypercholesterolemia, unspecified; K76.0 Fatty (change of) liver, not elsewhere classified; K22.70 Barrett's esophagus without dysplasia; R73.02 Impaired glucose tolerance (oral); M17.11 Unilateral primary osteoarthritis, right knee; Z79.899 Other long term (current) drug therapy | CPT/HCPCS: 96127 ==

== ENCOUNTER 2025-01-21 10:10 | Outpatient (AMB) | payer OTHER, SELFPAY ==
[2025-01-21 10:13] VITALS: BP 159/90; PULSE 112; RESP 16; O2SAT 97; BMI 26.8
--- NOTE | 2025-01-21 10:13 | MHC.OFFVIS ---
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 Required: No Allergies lisinopril Allergy (Intermediate, Verified 01/21/25 10:15) Cough scallops Adverse Reaction (Intermediate, Verified 01/21/25 10:15) VOMITING mussels Adverse Reaction (Severe, Uncoded 01/21/25 10:15) N/V Medication List - Last Reconciled 01/21/25 by Alley Taveras LPN fenofibrate 160 mg PO DAILY 90 days fexofenadine (Deena Allergy) 180 mg PO DAILY fluticasone propionate 50 mcg/actuation (Flonase Allergy Relief) 1 spray intranasal Q12H 30 days losartan 50 mg PO DAILY 90 days omeprazole magnesium (Prilosec OTC) 20 mg PO DAILY simvastatin 5 mg PO BEDTIME 90 days HPI Comments Details: Phill is very pleasant 59 years old gentleman who presents in my office with complains on pain in lower back with radiation into bilateral lower extremities more on the left and less on the right. He also reports numbness in the left foot. He reports soreness on the right side. He denies Valsalva aggravate his pain. He reports lifting does not aggravates his pain. He reports that flexing forward aggravates his pain. Standing and walking hurts him more. His pain is sitting positioned 0/10 at this time however reports when he walks his pain becomes grossly aggravated. He tried ibuprofen and Tylenol to help his pain. He never had physical therapy to his pain. However he does exercise flossing exercises at home and does stretching exercises. He reports minimal improvement for short period of time with flossing exercises and stretches. He never had an MRI. He had knee injections in the past done by Dr. Raza. His past medical history significant for hypertension he is taking losartan 5 mg q.d.. He denies any surgeries in the past. He admits drinking alcohol 1-2 glasses of wine 3 to 4 times a week. He denies smoking cigarettes he admits edible cannabis attempt to alleviate his pain but it did not help him. [facility] Medical History (Updated 01/21/25 @ 10:52 by Hugo Meza MD) LFT elevation Colon cancer screening Pain and swelling of left wrist Gastroenteritis Immunization due Cellulitis of left thumb Dog bite of left thumb Myofascial pain syndrome Blood pressure elevated without history of HTN Allergic rhinitis GERD (gastroesophageal reflux disease) Hypertriglyceridemia Impaired glucose tolerance Surgical History (Updated 05/22/24 @ 14:48 by Cherry Arnett RN) History of esophagogastroduodenoscopy (EGD) History of laryngoscopy Left breast mass Family History Mother No problems noted. 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 Cognitive needs: No Hearing needs: No Vision needs: Yes Review of Systems Const All systems reviewed & are unremarkable except as noted in HPI and below ENT Reports Normal hearing present Neuro Reports Normal hearing present, Denies Abnormal speech present, Denies confusion and Denies Sensory deficit (Neuro) Psych Denies confusion Physical Exam Vital Signs: Last Vital Signs Pulse 112 H 01/21/25 10:13 Resp 16 01/21/25 10:13 BP 159/90 H 01/21/25 10:13 Pulse Ox 97 01/21/25 10:13 Oxygen Delivery Method Room Air 01/21/25 10:13 BMI result Body Mass Index 26.8 Const General: no acute distress; No confusion Orientation/consciousness: patient oriented x3 and No confusion Eyes General: appearance normal, both eyes and all related structures Pupils: Equal, round and reactive pupils present EOM: EOMs intact bilaterally Neck Neck: Yes full ROM Chest Chest palpation & inspection: normal inspection of the chest Resp Effort & Inspection: normal respiratory effort, able to speak in complete sentences, normal respiratory pattern, no audible wheezes and no cough Cardio Jugular venous distension: no JVD GI Inspection: Yes normal to inspection Back/Spine/Pelvis Other: No tenderness on palpation in paraspinal spinal region of the lumbar spine. No tenderness on palpation in projection of the sacroiliac joints. Guille test is negative bilaterally. SLR is equivocal on the left and negative on the right. Valsalva maneuver does not aggravate the pain. Able to stand on bilateral tiptoes in bilateral heels without difficulty. Able to lift great toe in separation from the rest of the toes from the ground. Neuro General: patient oriented x3, gait normal and No confusion Cranial nerves: Yes CN's II-XII intact bilaterally, Yes Equal, round and reactive pupils present, Yes Normal hearing present and Yes Ability to bilaterally elevate shoulders present Speech: No Abnormal speech present Gait exam (Neuro): Normal gait present Motor exam (neuro): 5/5 motor strength present throughout Sensory Exam: No Sensory deficit (Neuro) Extrem General: No pedal edema Psych Speech and movement: Normal speech and movement present Affect: normal affect Attitude: cooperative Thought process: Normal thought process present Thought content: Normal thought content present Insight: Good insight present (Psych) Judgement: Good judgement present (Psych) Assessment & Plan Assessment & Plan (1) Radiculopathy, lumbar region: Code(s): M54.16 - Radiculopathy, lumbar region Category: Medical (2) Spondylosis of lumbar spine: Code(s): M47.816 - Spondylosis without myelopathy or radiculopathy, lumbar region Category: Medical (3) Chronic pain syndrome: Code(s): G89.4 - Chronic pain syndrome Category: Medical Plan Patient is living for family function into days. He requests me to prescribe him some medication which would potentially help his pain. I decided to prescribe him Medrol pack for the next 6 days. I explained to the patient how to use the medication. To evaluate his condition I would like to send him for the MRI of the lumbar spine. After that I will evaluate the MRI and decide what specific treatment will we implement to help the pain of this patient. Orders: Orders MR lumbar spine wo con Today G89.4 - Chronic pain syndrome, M47.816 - Spondylosis without myelopathy or radiculopathy, lumbar region, M54.16 - Radiculopathy, lumbar region Medications: New methylprednisolone (Medrol (Filiberto)) PO PER PKG DIR for 6 days 21 ea 0RF 6 days Coding Level of Care Code New Pt Level 3 (38228) Diagnoses Radiculopathy, lumbar region M54.16 Spondylosis of lumbar spine M47.816 Chronic pain syndrome G89.4
== END 2025-01-21 10:48 | disposition home or self-care (01) ==
LOC: HO.PMC 10:11
PROVIDERS: PCP Internal Medicine; Visit Provider Anesthesiology
DX: M54.16 Radiculopathy, lumbar region (principal); M47.816 Spondylosis without myelopathy or radiculopathy, lumbar region; G89.4 Chronic pain syndrome
CPT/HCPCS: 62370; 99213

== ENCOUNTER → 2025-01-21 10:10 | Outpatient (BNVA) | payer OTHER, SELFPAY | PROVIDERS: PCP Internal Medicine; Visit Provider Anesthesiology | DX: M47.26 Other spondylosis with radiculopathy, lumbar region (principal); G89.4 Chronic pain syndrome | CPT/HCPCS: 62370 ==

== ENCOUNTER → 2025-01-28 17:35 | Outpatient (BNV) | payer OTHER, SELFPAY | PROVIDERS: PCP Internal Medicine; Visit Provider Radiology Diagnostic Radiology | DX: M48.061 Spinal stenosis, lumbar region without neurogenic claudication (principal); D17.79 Benign lipomatous neoplasm of other sites; M99.63 Osseous and subluxation stenosis of intervertebral foramina of lumbar region | CPT/HCPCS: 72148 ==

== ENCOUNTER 2025-01-28 17:38 | Outpatient (REF) | payer OTHER, SELFPAY ==
--- NOTE | ~2025-01-28 | MR_ITS ---
EXAMINATION: MR LUMBAR SPINE WITHOUT CONTRAST CLINICAL INFORMATION: Radiculopathy, lumbar region. COMPARISON: None available. TECHNIQUE: MRI of the lumbar spine was obtained using routine sequences without contrast. FINDINGS: Last rib-bearing vertebra labeled T12. Diffuse bone marrow STIR signal involving endplates and mid bodies of the L3 and L4 vertebral bodies and extending into the right pedicle and right transverse processes more pronounced at L4. Modic type I endplate changes at L3-4. Schmorl nodes in the endplates of L2, L1. Bone marrow inhomogeneity throughout the axial skeleton and bony pelvis. Multilevel disc desiccation and marginal osteophyte formation from T11-12 to L5-S1 more pronounced at L3-4. Grade 1 retrolisthesis, L1 to, L2-3 and L4-5 levels. Conus medullaris ends at inferior endplate of L1 with normal signal. T11-12: No disc herniation. No neuroforamina stenosis. T12-L1: No disc herniation. No neuroforamina stenosis. L1-2: Broad-based disc bulging. Facet joint hypertrophy. No compression upon neural elements. L2-3: Broad-based disc bulging. Facet joint hypertrophy. Reduced AP diameter of the thecal sac. Bilateral neuroforamina stenosis encroaching the L2 exiting nerve roots. L3-4: Prominent epidural fat in a circumferential fashion. Broad-based disc bulging. Facet joint and ligamentum flavum hypertrophy. Reduced AP diameter of the thecal sac and bilateral neuroforamina stenosis encroaching likely compressing the neural elements of the thecal sac and the L3 exiting nerve roots. L4-5: Broad-based disc bulging. Facet joint hypertrophy. Prominent epidural fat in a circumferential fashion. Reduced AP diameter of the thecal sac and the neural foramina, left greater than right side compressing the left L4 exiting nerve root and likely encroaching the neural elements of the thecal sac. L5-S1: Broad-based disc bulging. Facet joint hypertrophy. Bilateral neuroforamina narrowing encroaching the L5 exiting nerve roots. No gross central spinal canal stenosis. Fatty atrophy of the inner fibers of the right psoas iliac muscle at the L3-4 level. No gross prevertebral compartment hematoma, mass or fluid collection. MR/MR lumbar spine wo con IMPRESSION: Acute to subacute inflammatory changes likely secondary to degenerative at L3-4. Central spinal canal and bilateral neuroforamina stenosis, right greater than left compressing the neural elements at L3-4. Central spinal canal and bilateral neuroforamina stenosis, left greater than the right side compressing the left L4 exiting nerve root and likely neural elements of the thecal sac on a degenerative basis, L4-5. Prominent epidural fat, L3-4 and L4-5.. Electronically signed by: Curtis Watters MD 01/29/2025 07:17 AM EDT
== END 2025-01-28 17:39 | disposition home or self-care (01) ==
LOC: HO.MRI 17:38
PROVIDERS: PCP Internal Medicine; Visit Provider Anesthesiology
DX: M54.16 Radiculopathy, lumbar region (principal); M47.816 Spondylosis without myelopathy or radiculopathy, lumbar region; G89.4 Chronic pain syndrome
CPT/HCPCS: 72148

== ENCOUNTER 2025-02-04 10:28 | Outpatient (REF) | payer OTHER, SELFPAY | END 2025-02-04 10:29 | disposition home or self-care (01) | LOC: HO.SH 10:28 | PROVIDERS: Visit Provider Internal Medicine | DX: Z01.118 Encounter for examination of ears and hearing with other abnormal findings (principal); H93.293 Other abnormal auditory perceptions, bilateral | CPT/HCPCS: 92557 ==

== ENCOUNTER 2025-02-05 06:20 | Outpatient (REF) | payer OTHER, SELFPAY ==
--- NOTE | ~2025-02-05 | FL_ITS ---
EXAMINATION: FL GUIDANCE ONLY HISTORY: M47.816 - Spondylosis without myelopathy or radiculopathy, lumbar region COMPARISON: None available. TECHNIQUE: Fluoroscopy time: 0.9 minutes. Cumulative Dose: 11.6 mGy. DAP: 0.170 mGym2 Images: 15. FINDINGS: Fluoroscopic spot films of the lumbosacral junction in the AP projection demonstrate needles and contrast material in the regions of the bilateral L3-4, L4-5, and L5-S1 facet joints. FL/FL guidance in treatment room IMPRESSION: Fluoroscopy during procedure. Please see procedure report for additional information. Electronically signed by: Kiko Humphrey MD 02/05/2025 01:08 PM EDT
== END 2025-02-05 06:21 | disposition home or self-care (01) ==
LOC: CF 06:20
PROVIDERS: Visit Provider Anesthesiology
DX: M47.816 Spondylosis without myelopathy or radiculopathy, lumbar region (principal)
CPT/HCPCS: 64493; 64494; J2003; J2795; Q9967

== ENCOUNTER 2025-02-05 11:47 | Outpatient (AMB) | payer OTHER, SELFPAY ==
[2025-02-05 11:52] VITALS: BP 110/78; PULSE 70; RESP 16; O2SAT 98
--- NOTE | 2025-02-05 11:52 | MHC.OFFVIS ---
Vital Signs 02/05/25 11:52 02/05/25 12:26 BP 110/78 118/82 Blood Pressure Location Rt brachial Lt brachial Position Sitting Sitting Respiration 16 16 Pulse 70 78 Pulse Source Pulse Oximeter Pulse Oximeter Pulse Oximetry (%) 98 100 Oxygen Delivery Method Room Air Room Air Intake Visit Reasons: BILATERAL DIAGNOSTIC L3, L4, DRL5 MBB Drainage Inspector Required: No Allergies lisinopril Allergy (Intermediate, Verified 02/05/25 11:53) Cough scallops Adverse Reaction (Intermediate, Verified 02/05/25 11:53) VOMITING mussels Adverse Reaction (Severe, Uncoded 02/05/25 11:53) N/V Medication List - Last Reconciled 02/05/25 by Alley Taveras LPN fenofibrate 160 mg PO DAILY 90 days fexofenadine (Deena Allergy) 180 mg PO DAILY fluticasone propionate 50 mcg/actuation (Flonase Allergy Relief) 1 spray intranasal Q12H 30 days losartan 50 mg PO DAILY 90 days methylprednisolone (Medrol (Filiberto)) PO PER PKG DIR for 6 days 6 days omeprazole magnesium (Prilosec OTC) 20 mg PO DAILY simvastatin 5 mg PO BEDTIME 90 days PFSH Medical History (Updated 01/21/25 @ 10:52 by Hugo Meza MD) LFT elevation Colon cancer screening Pain and swelling of left wrist Gastroenteritis Immunization due Cellulitis of left thumb Dog bite of left thumb Myofascial pain syndrome Blood pressure elevated without history of HTN Allergic rhinitis GERD (gastroesophageal reflux disease) Hypertriglyceridemia Impaired glucose tolerance Surgical History (Updated 05/22/24 @ 14:48 by Cherry Arnett RN) History of esophagogastroduodenoscopy (EGD) History of laryngoscopy Left breast mass Family History Mother No problems noted. 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 Cognitive needs: No Hearing needs: No Vision needs: Yes Physical Exam Vital Signs: Last Vital Signs Pulse 78 02/05/25 12:26 Resp 16 02/05/25 12:26 BP 118/82 02/05/25 12:26 Pulse Ox 100 02/05/25 12:26 Oxygen Delivery Method Room Air 02/05/25 12:26 Assessment & Plan Assessment & Plan (1) Spondylosis of lumbar spine: Code(s): M47.816 - Spondylosis without myelopathy or radiculopathy, lumbar region Category: Medical Plan diagnostic medial branch block L2, L3, L4, dorsal ramus L5Rosemary Pollock is very pleasant 59 years old gentleman who is suffering from lower back pain which is exacerbated by standing and walking. He is here today for diagnostic medial branch block as above. After obtaining informed consent the patient was brought to the operating room and was positioned prone on operating table with pillow under his abdomen. Time-out was performed delineating name and date of of the patient nature of the procedure and allergies of the patient. The lower back of the patient was prepped with ChloraPrep and draped with sterile self adhesive utility towels. C-arm was brought over the operating field and sq picture of the L3, L4, L5, and S1 vertebra was sequentially obtained on the screen. The point of interest were delineated as the confluence of the bilateral superior articular process of L3, L4, L5 with corresponding transverse processes bilaterally, as well as confluence of bilateralsuperior articular process of S1 vertebra with bilateral sacral ala. the projection of the point of interest to the skin was injected with small amount of mixture of lidocaine 2% and ropivacaine 0.5% one-to-one forming skin wheals. After the 22 gauge 3-1/2 inch Quincke point spinal needle was inserted through the skin wheals and advanced to the point of interest in tunnel vision fashion. At 1 positioned at L4 vertebra on the left patient felt paresthesia going all the way down to his left lower extremity. When the tip of the needle gently contacted the bone injection of the contrast was performed delineating no intrathecal and no intravascular spread of the contrast. after that injection of the small amount of local anesthetic ropivacaine 0.5% less than 1 cc was performed into each needle positioned. Upon completion of the injection the needle was withdrawn sterile Band-Aids were applied. the patient tolerated the procedure well, the paresthesia sensation was short-lived. Orders: Orders FL guidance in treatment room Today M47.816 - Spondylosis without myelopathy or radiculopathy, lumbar region Coding Level of Care Code Procedure Only Diagnoses Spondylosis of lumbar spine M47.816
[2025-02-05 12:26] VITALS: BP 118/82; PULSE 78; RESP 16; O2SAT 100
== END 2025-02-05 12:26 | disposition home or self-care (01) ==
LOC: HO.PMCPRC 11:47
PROVIDERS: PCP Internal Medicine; Visit Provider Anesthesiology
DX: M47.816 Spondylosis without myelopathy or radiculopathy, lumbar region (principal)
CPT/HCPCS: 64493; 64494

== ENCOUNTER 2025-02-07 13:09 | Outpatient (AMB) | payer OTHER, SELFPAY ==
--- NOTE | 2025-02-07 13:11 | MHC.OFFVIS ---
Vital Signs 02/07/25 13:14 Height 5 ft 10 in Weight 187 lb BMI 26.8 BP 136/83 Blood Pressure Location Rt brachial Position Sitting Pulse 88 Pulse Source Pulse Oximeter Pulse Oximetry (%) 99 Oxygen Delivery Method Room Air Intake Visit Reasons: BILATERAL DIAGNOSTIC L3, L4, DRL5 MBB Intake Note: Pain today 0/10 Surgical Device Sales Representative Required: No Accompanied by: Spouse Allergies lisinopril Allergy (Intermediate, Verified 02/07/25 13:15) Cough scallops Adverse Reaction (Intermediate, Verified 02/07/25 13:15) VOMITING mussels Adverse Reaction (Severe, Uncoded 02/05/25 11:53) N/V HPI Comments Details: Stefano is back in my office after MRI procedure and diagnostic medial branch block L2, L3, L4, dorsal ramus L5 bilateral. The results of the MRI see as below. Multiple changes attracted attention but facet joint arthropathy is 1 of them. Diagnostic medial branch block as above resulted in 6 hours of 100% pain elimination. He was very active took 1 mi walk, after that worked very hard in his yd for 3 hours, he reported pain coming back very mild only 6 hours after the procedure. I think we established pain generators for this patient. We discussed today possibility of treating his pain with sprint PNS versus RFA of the L2, L3, L4, dorsal ramus L5 medial branches. Patient decided that he will think about it. They will give me a call with their decision and I will schedule it appropriately. Prior: c/o pain in lower back with radiation into bilateral lower extremities more on the left and less on the right. He also reports numbness in the left foot. He reports soreness on the right side. He denies Valsalva aggravate his pain. He reports lifting does not aggravates his pain. He reports that flexing forward aggravates his pain. Standing and walking hurts him more. His pain is sitting positioned 0/10 at this time however reports when he walks his pain becomes grossly aggravated. He tried ibuprofen and Tylenol to help his pain. He never had physical therapy to his pain. However he does exercise flossing exercises at home and does stretching exercises. He reports minimal improvement for short period of time with flossing exercises and stretches. He never had an MRI. He had knee injections in the past done by Dr. Raza. His past medical history significant for hypertension he is taking losartan 5 mg q.d.. He denies any surgeries in the past. He admits drinking alcohol 1-2 glasses of wine 3 to 4 times a week. He denies smoking cigarettes he admits edible cannabis attempt to alleviate his pain but it did not help him. [facility] Medical History (Updated 01/21/25 @ 10:52 by Hugo Meza MD) LFT elevation Colon cancer screening Pain and swelling of left wrist Gastroenteritis Immunization due Cellulitis of left thumb Dog bite of left thumb Myofascial pain syndrome Blood pressure elevated without history of HTN Allergic rhinitis GERD (gastroesophageal reflux disease) Hypertriglyceridemia Impaired glucose tolerance Surgical History (Updated 05/22/24 @ 14:48 by Cherry Arnett RN) History of esophagogastroduodenoscopy (EGD) History of laryngoscopy Left breast mass Family History Mother No problems noted. 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 Cognitive needs: No Hearing needs: No Vision needs: Yes Review of Systems Const All systems reviewed & are unremarkable except as noted in HPI and below ENT Reports Normal hearing present Neuro Reports Normal hearing present, Denies Abnormal speech present, Denies confusion and Denies Sensory deficit (Neuro) Psych Denies confusion Physical Exam Vital Signs: Last Vital Signs Pulse 88 02/07/25 13:14 BP 136/83 02/07/25 13:14 Pulse Ox 99 02/07/25 13:14 Oxygen Delivery Method Room Air 02/07/25 13:14 BMI result Body Mass Index 26.8 Const General: no acute distress; No confusion Orientation/consciousness: patient oriented x3 and No confusion Eyes General: appearance normal, both eyes and all related structures Pupils: Equal, round and reactive pupils present EOM: EOMs intact bilaterally Neck Neck: Yes full ROM Chest Chest palpation & inspection: normal inspection of the chest Resp Effort & Inspection: normal respiratory effort, able to speak in complete sentences, normal respiratory pattern, no audible wheezes and no cough Cardio Jugular venous distension: no JVD GI Inspection: Yes normal to inspection Back/Spine/Pelvis Other: No tenderness on palpation in paraspinal spinal region of the lumbar spine. No tenderness on palpation in projection of the sacroiliac joints. Guille test is negative bilaterally. SLR is equivocal on the left and negative on the right. Valsalva maneuver does not aggravate the pain. Able to stand on bilateral tiptoes in bilateral heels without difficulty. Able to lift great toe in separation from the rest of the toes from the ground. Neuro General: patient oriented x3, gait normal and No confusion Cranial nerves: Yes CN's II-XII intact bilaterally, Yes Equal, round and reactive pupils present, Yes Normal hearing present and Yes Ability to bilaterally elevate shoulders present Speech: No Abnormal speech present Gait exam (Neuro): Normal gait present Motor exam (neuro): 5/5 motor strength present throughout Sensory Exam: No Sensory deficit (Neuro) Extrem General: No pedal edema Psych Speech and movement: Normal speech and movement present Affect: normal affect Attitude: cooperative Thought process: Normal thought process present Thought content: Normal thought content present Insight: Good insight present (Psych) Judgement: Good judgement present (Psych) Results Reviewed Results Reviewed: MR LUMBAR SPINE WITHOUT CONTRAST CLINICAL INFORMATION: Radiculopathy, lumbar region. COMPARISON: None available. TECHNIQUE: MRI of the lumbar spine was obtained using routine sequences without contrast. FINDINGS: Last rib-bearing vertebra labeled T12. Diffuse bone marrow STIR signal involving endplates and mid bodies of the L3 and L4 vertebral bodies and extending into the right pedicle and right transverse processes more pronounced at L4. Modic type I endplate changes at L3-4. Schmorl nodes in the endplates of L2, L1. Bone marrow inhomogeneity throughout the axial skeleton and bony pelvis. Multilevel disc desiccation and marginal osteophyte formation from T11-12 to L5-S1 more pronounced at L3-4. Grade 1 retrolisthesis, L1 to, L2-3 and L4-5 levels. Conus medullaris ends at inferior endplate of L1 with normal signal. T11-12: No disc herniation. No neuroforamina stenosis. T12-L1: No disc herniation. No neuroforamina stenosis. L1-2: Broad-based disc bulging. Facet joint hypertrophy. No compression upon neural elements. L2-3: Broad-based disc bulging. Facet joint hypertrophy. Reduced AP diameter of the thecal sac. Bilateral neuroforamina stenosis encroaching the L2 exiting nerve roots. L3-4: Prominent epidural fat in a circumferential fashion. Broad-based disc bulging. Facet joint and ligamentum flavum hypertrophy. Reduced AP diameter of the thecal sac and bilateral neuroforamina stenosis encroaching likely compressing the neural elements of the thecal sac and the L3 exiting nerve roots. L4-5: Broad-based disc bulging. Facet joint hypertrophy. Prominent epidural fat in a circumferential fashion. Reduced AP diameter of the thecal sac and the neural foramina, left greater than right side compressing the left L4 exiting nerve root and likely encroaching the neural elements of the thecal sac. L5-S1: Broad-based disc bulging. Facet joint hypertrophy. Bilateral neuroforamina narrowing encroaching the L5 exiting nerve roots. No gross central spinal canal stenosis. Fatty atrophy of the inner fibers of the right psoas iliac muscle at the L3-4 level. No gross prevertebral compartment hematoma, mass or fluid collection. IMPRESSION: Acute to subacute inflammatory changes likely secondary to degenerative at L3-4. Central spinal canal and bilateral neuroforamina stenosis, right greater than left compressing the neural elements at L3-4. Central spinal canal and bilateral neuroforamina stenosis, left greater than the right side compressing the left L4 exiting nerve root and likely neural elements of the thecal sac on a degenerative basis, L4-5. Prominent epidural fat, L3-4 and L4-5.. Assessment & Plan Assessment & Plan (1) Radiculopathy, lumbar region: Code(s): M54.16 - Radiculopathy, lumbar region Category: Medical (2) Spondylosis of lumbar spine: Code(s): M47.816 - Spondylosis without myelopathy or radiculopathy, lumbar region Category: Medical (3) Chronic pain syndrome: Code(s): G89.4 - Chronic pain syndrome Category: Medical Plan The results of the diagnostic medial branch block as above are very impressive. Patient was given options of treatment of his chronic pain with sprint PNS versus RFA. They decided that they will think about it. They will give me a call and tell me what procedure the want to go for. Patient Instructions: I here by testify that I spent 30 minutes in conversation with this patient as well as planning his care evaluating his prior records and organizing this note. Coding Level of Care Code Est Pt Level 4 (88586) Diagnoses Radiculopathy, lumbar region M54.16 Spondylosis of lumbar spine M47.816 Chronic pain syndrome G89.4
[2025-02-07 13:14] VITALS: BP 136/83; PULSE 88; O2SAT 99; BMI 26.8
== END 2025-02-07 13:39 | disposition home or self-care (01) ==
LOC: HO.PMC 13:10
PROVIDERS: PCP Internal Medicine; Visit Provider Anesthesiology
DX: M54.16 Radiculopathy, lumbar region (principal); M47.816 Spondylosis without myelopathy or radiculopathy, lumbar region; G89.4 Chronic pain syndrome
CPT/HCPCS: 99214

== ENCOUNTER → 2025-02-07 13:09 | Outpatient (BNVA) | payer OTHER, SELFPAY | PROVIDERS: PCP Internal Medicine; Visit Provider Anesthesiology ==

== ENCOUNTER 2025-02-19 06:51 | Outpatient (REF) | payer OTHER, SELFPAY | END 2025-02-19 06:52 | disposition home or self-care (01) | LOC: CF 06:51 | PROVIDERS: Visit Provider Anesthesiology | DX: Z13.89 Encounter for screening for other disorder (principal) ==

== ENCOUNTER 2025-02-22 09:20 | Outpatient (AMB) | payer OTHER, SELFPAY ==
[2025-02-22 09:37] VITALS: BMI 26.1
--- NOTE | 2025-02-22 09:37 | A.SPINEOV_ITS ---
Vital Signs 02/22/25 09:37 Height 5 ft 10 in Weight 182 lb BMI 26.1 Intake Visit Reasons: LBP will like to speak to Intake Note: Mr. Sagastume is here today c/o low back pain. Academic Adviser Required: No Allergies lisinopril Allergy (Intermediate, Verified 02/22/25 09:38) Cough scallops Adverse Reaction (Intermediate, Verified 02/22/25 09:38) VOMITING mussels Adverse Reaction (Severe, Uncoded 02/05/25 11:53) N/V Physical Exam Vital Signs: BMI result Body Mass Index 26.1 Assessment & Plan Assessment & Plan (1) Spondylosis of lumbar spine: Code(s): M47.816 - Spondylosis without myelopathy or radiculopathy, lumbar region Category: Medical (2) Radiculopathy, lumbar region: Code(s): M54.16 - Radiculopathy, lumbar region Category: Medical Plan This is a very nice 60-year-old gentleman presents to the office today for evaluation of a persistent and worsening back pain that has been going on for over a year. It has been getting particularly worse over the last several months. He describes it as a burning pain in his back in the paraspinal regions and radiates down into his hips in his lateral thighs. When he is in a seated position he can stay there for almost any length of time, but once he starts to stand up and walk around the pain intensified significantly. Over the last year he has had significant worsening of the pain. He did undergo injections at Dr. Blackburn office, specifically median branch diagnostic blocks at L3,L4,L5, and had excellent success for about 6 hours. He was able to work in his yd and do a significant amount of activity without pain. As the numbing medication wore off hour with the pain came right back. He has been on ibuprofen 800 mg 3 times a day and that makes the pain a bit more manageable. However, it does not take it away. He has an MRI showing a severely degenerative disc at L3-4 with Modic endplate changes and significant facet arthropathy. He came today for surgical opinion. PMH: Reasonably healthy, history of hypertension and cholesterol these are fairly well controlled, no history of heart attacks, strokes, pulmonary disorders, liver or kidney issues, bleeding disorders, blood clots. He has never had surgery. Social hx: Occasional wine, occasional marijuana gummy. He does not smoke cigarettes or use any other recreational drugs Medications: Ibuprofen, losartan, simvastatin and Deena Allergies: None Physical exam: Awake alert oriented no acute distress, able to stand walk in the hallway, tandem gait testing is normal, strength in the lower extremities is normal, absent reflexes at the patella and Achilles Imaging review: Lumbar MRI done at [place] shows normal alignment of the spine, he has severe collapse of the L3-4 disc space with Modic type 1 endplate changes extending into the pedicles and back toward the facet joints. There is moderate stenosis at this level. There is severe right L 3 foraminal stenosis, moderate left L3 foraminal stenosis. The radiologist reports that there is stenosis at L4-5 as well, but I disagree with this reading. There are some other more subtle changes in the upper lumbar areas but nothing significant. X-rays done in the office today in the standing position show worsening of the collapse on the right side of the L3-4 disc with evidence of osteophyte growth. Impression: 60-year-old male presents for evaluation of progressively worsening back pain radiating down to his hips in his lateral thighs with standing and walking who has severe disc degeneration at L3-4 with disc collapse and foraminal stenosis and moderate central canal stenosis. He has done some basic conservative treatment so far with anti-inflammatories, [id number]-pat-[id number] medications, as well as diagnostic blocks to the facet joints at the L3-4 level. He did have excellent improvement in his symptoms for 6 hours so we feel strongly that the pain is coming from this L3-[address] Pemberton and I met with him, discussed the option of an L3-4 oblique lumbar interbody fusion. We think he would be an excellent candidate for surgery. We tentatively booked him for May 21. He has no other major medical problems or contraindications for surgery. He does have [facility] which will undoubtedly require him to undergo physical therapy before surgery. I have no expectation that it will help the issue at all, but we need to do it as a formality otherwise they will deny the surgery so I gave him a referral for that. He will call me and let me know how it is going with the physical therapy. Pt was given risk and benefits of surgery including but not limited to infection, hematoma , nerve injury,durotomy, weakness,bowel/bladder injury, persistent pain, adjacent segment disease as well as the option to continue with conservative treatment and patient wishes to proceed with surgery. Pt is aware they should stop their motrin, 7 days prior to surgery. All questions were answered to the best of our ability. If there is anything about this patients medical history that we have overlooked or concerns you have about us proceeding with surgery we would appreciate any input you can offer. Thank you for allowing us to care for your patient. The total time spent with this visit with this patient was 45 minutes reviewing history, physical exam, lumbar imaging review, and implementation of treatment plan or further diagnostic testing Marvin Pemberton MD,PhD [facility] Orders: Orders PT Evaluation and Treatment Today M47.816 - Spondylosis without myelopathy or radiculopathy, lumbar region XR lumbar spine 4V min Today M47.816 - Spondylosis without myelopathy or radiculopathy, lumbar region, M54.16 - Radiculopathy, lumbar region Coding Level of Care Code New Pt Level 4 (18611) Diagnoses Spondylosis of lumbar spine M47.816 Radiculopathy, lumbar region M54.16
== END 2025-02-22 10:47 | disposition home or self-care (01) ==
LOC: HO.HNS 09:20
PROVIDERS: PCP Internal Medicine; Visit Provider Physician Assistant
DX: M47.816 Spondylosis without myelopathy or radiculopathy, lumbar region (principal); M54.16 Radiculopathy, lumbar region
CPT/HCPCS: 99204

== ENCOUNTER 2025-02-22 09:20 | Outpatient (REF) | payer OTHER, SELFPAY ==
--- NOTE | ~2025-02-22 | XR_ITS ---
EXAMINATION: XR LUMBOSACRAL SPINE CLINICAL INFORMATION: M47.816 - Spondylosis without myelopathy or radiculopathy, lumbar region COMPARISON: MR lumbar 01/28/2025. TECHNIQUE: 4 views of the lumbar spine, inclusive of flexion and extension views, were obtained. FINDINGS: There is a mild levoconvex scoliosis, apex at L3. There is a normal lordosis. There is no subluxation. There are no fractures, gross compression deformities, or suspicious bone lesions. There is minimal chronic ventral wedging of T12. Severe disc degeneration is present at L3-4 with sclerosis of the endplates and disc osteophytic spurring. Milder disc degenerative changes is present at the other levels. There is normal facet alignment. There are multilevel degenerative facet changes most prominent L3-S1. No pars defects evident. Flexion and extension views demonstrate no pathologic bony movement to suggest instability. Soft tissues demonstrate vascular calcifications. XR/XR lumbar spine 4V min IMPRESSION: 1. No acute bony abnormalities. 2. Moderate multilevel spondylosis most significant at L3-4. 3. No evidence of instability on flexion and extension views. Electronically signed by: Cong Diaz MD 02/25/2025 01:16 PM EDT
== END 2025-02-22 09:21 | disposition home or self-care (01) ==
LOC: HO.HOSX 09:20
PROVIDERS: PCP Internal Medicine; Visit Provider Physician Assistant
DX: M47.816 Spondylosis without myelopathy or radiculopathy, lumbar region (principal); M54.16 Radiculopathy, lumbar region
CPT/HCPCS: 72110

== ENCOUNTER → 2025-02-22 10:10 | Outpatient (BNV) | payer OTHER, SELFPAY | PROVIDERS: PCP Internal Medicine; Visit Provider Radiology Diagnostic Radiology | DX: M47.816 Spondylosis without myelopathy or radiculopathy, lumbar region (principal) | CPT/HCPCS: 72110 ==

== ENCOUNTER 2025-03-12 08:11 | Outpatient (RCR) | payer OTHER, SELFPAY ==
--- NOTE | 2025-02-25 09:59 | MHC.PT.EP ---
[facility] [place] Office [place] Office [place] Office [address] [place] Javier Howard [address] [facility] [phone] F: [phone] F: [phone] F: [phone] F: [phone] Physical Therapy Plan of Care Date of Evaluation: 02/25/25 Date of Surgery: scheduled May 21 Diagnosis: Spondylosis without myelopathy or radiculopathy, lumbar region Assessment: Pt is a pleasant and motivated 60yo M who presents to PT with low back pain with LE radicular symptoms. He reports he is scheduled for surgery on May [address] Pemberton. He reports he was told he needs to attend PT in order for his surgery to be approved by insurance. He reports he was also told at his appointment that physical therapy will make him worse. I discussed with patient that physical therapy can help to improve core stabilization, hip strengthening, muscle flexible, and improve proper body mechanics in preparation for surgery. I also discussed with patient that physical therapy should not increase his pain or radicular symptoms and that his plan of care will be reassessed as needed. He presents to PT with current impairments in pain, radicular symptoms, decreased core stabilization, decreased hip/glute strength, decreased muscle length, and impaired gait. He is limited functionally by standing, walking, bending, and extending. He is a good candidate for skilled PT in order to address current impairments to facilitate return to PLOF. He is recommended to be seen 2x/week for 4 weeks and will be reassessed at that time Frequency and Duration: The patient will be seen 2x/week for 4 weeks Short Term Goals: Pt will be I with HEP to promote self management of symptoms Pt will demonstrate improvements in postural awareness and body mechanics throughout the day Pt will have centralization of symptoms Italian Lecturer Goals: Pt will tolerate prolonged standing > 30 minutes without LE radicular symptoms to assist with household tasks Pt will tolerate prolonged walking > 1 hour without LE radicular symptoms Pt will demonstrate improvements in function as evidenced by statistically significant improvement in Modified Oswestry Low Back Pain Disability Index Questionnaire Treatment Plan: Modalities to reduce pain, spasms and effusion. Manual therapy to restore motion and function. Therapeutic exercise to improve strength and flexibility. Neuromuscular re-education for posture and balance. Therapeutic activities to return to functional activities of daily living. Electronically signed by: Idalmis Rios, PT, DPT Please sign and return to therapist. Thank you for your referral.
--- NOTE | 2025-04-29 08:50 | MHC.PT.DC ---
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 He still was unable to walk for long distances but was gradually walking more with less pain. He cancelled last appointments d/t hospitalization. Electronically signed by: Zina Rajput PT Please sign and return to therapist. Thank you for your referral.
== END 2025-04-29 08:50 | disposition home or self-care (01) ==
LOC: HO.PT 08:11
PROVIDERS: PCP Internal Medicine; Visit Provider Physician Assistant
DX: M47.816 Spondylosis without myelopathy or radiculopathy, lumbar region (principal); M51.369 Other intervertebral disc degeneration, lumbar region without mention of lumbar back pain or lower extremity pain
CPT/HCPCS: 97014; 97110; 97161

== ENCOUNTER 2025-03-13 12:26 | Inpatient (IN) | payer OTHER, SELFPAY ==
[2025-03-13] VITALS (7 sets, daily range): BP systolic 149–187; BP diastolic 83–92; PULSE 60–83; RESP 13–25; TEMP 36.2–36.7; O2SAT 97–100; BMI 26.4; BMI 26.3
--- NOTE | ~2025-03-13 | MR_ITS ---
CLINICAL HISTORY: Abdominal pain, concern for gallstone pancreaitis MRCP without gadolinium Comparison: None provided Findings: Motion artifact on the MRCP images limits evaluation. Biliary ductal structures are better appreciated on MRI thin slice images. No bile duct dilatation or choledocholithiasis. Common bile duct 4 mm diameter. Trace pericholecystic fluid present, Likely related to adjacent pancreatic pathology. No gallbladder wall thickening. No stones or other filling defects seen within the gallbladder. There is diffuse T2 hyperintensity in the retroperitoneal fat surrounding the duodenum and pancreas. Pancreas is enlarged and diffusely edematous in appearance. Pancreatic duct measures up to 3 mm. There is a bilobed 1.3 cm T2 hyperintense lesion in the dome of the right lobe of the liver consistent with a small cyst or hemangioma. Superior to the gallbladder, within the liver parenchyma there is a T2 hyperintense and T1 hypointense 2 cm lesion, less hyperintense than the gallbladder. This could be a cyst with debris or hemangioma. Kidneys and spleen are unremarkable. Adrenal glands are normal. There are right-sided Modic endplate changes at L3-4. IMPRESSION: 1. Findings consistent with pancreatitis, without evidence of bile duct pathology or choledocholithiasis. 2. There are 2 T2 hyperintense lesions within the liver which may be cysts or hemangiomas. This document has been electronically signed by: Jim Bales MD on 03/13/2025 20:34:28
--- NOTE | ~2025-03-13 | US_ITS ---
EXAMINATION: US ABDOMEN LIMITED CLINICAL INFORMATION: Post prandial pain.. COMPARISON: December 01, 2023. Correlated to CT abdomen dated March 13, 2025. TECHNIQUE: Real-time ultrasound right upper quadrant abdomen using grayscale technique. FINDINGS: The gallbladder is contracted. No pericholecystic fluid collection or gallbladder wall thickening. Common bile duct measures 4 m. No gross ascites. US/US abdomen limited IMPRESSION: Contracted gallbladder. No cholelithiasis. Electronically signed by: Curtis Watters MD 03/13/2025 03:23 PM EDT
--- NOTE | ~2025-03-13 | XR_ITS ---
EXAMINATION: XR CHEST CLINICAL INFORMATION: chest pain COMPARISON: None available. TECHNIQUE: Frontal view of the chest was obtained. FINDINGS: The cardiac, hilar, and mediastinal contours are normal. The lungs are clear bilaterally. No pneumothorax or effusion. No focal osseous or soft tissue abnormality. XR/XR chest 1V IMPRESSION: No active pulmonary disease. Electronically signed by: Cong Diaz MD 03/13/2025 01:19 PM EDT RP
--- NOTE | ~2025-03-13 | CT_ITS ---
CLINICAL HISTORY: Follow up on aucte pancreatitis CT abdomen and pelvis without contrast Comparison: MR - MR MRCP - 03/13/25 17:[address]/SR - CT ANGIO ABDOMEN PELVIS - 03/13/25 13:46 EDT Findings: Examination is limited by without contrast. Lung bases are clear. No pleural effusion. Liver, Spleen and both adrenals show normal size, shape and attenuation on present unenhanced scan. No CBD dilatation. There is fat stranding surrounding the pancreas. No apparent fluid collection of the peripancreatic region. No calcified gallstone in the gallbladder. Both kidneys reveal normal in size, shape, position and attenuation. No kidney stone. No hydronephrosis. The IVC, aorta and portal vein are within normal position and caliber. No evidence of retroperitoneal lymphadenopathy or ascites. Small pelvic free fluid. The visible parts of the bowel loops show no obvious mass lesions or wall thickening. Appendix appears normal. Urinary bladder reveals normal lumen and benntet. The pelvic organs are unremarkable. Visualized osseous structures appear unremarkable. No lytic or sclerotic bony lesion. IMPRESSION: Unchanged appearance of the fat stranding surrounding the pancreas consistent with acute pancreatitis. New small pelvic free fluid. This document has been electronically signed by: Berta Canada MD on 03/15/2025 19:31:13
--- NOTE | ~2025-03-13 | CT_ITS ---
EXAMINATION: CT ANGIOGRAM OF THE CHEST, ABDOMEN, AND PELVIS WITH AND WITHOUT CONTRAST (CT ANGIOGRAM aorta FOR DISSECTION) CLINICAL INFORMATION: Abdominal pain DLP: 600 mGY*cm COMPARISON: None available. TECHNIQUE: Prior to contrast administration, noncontrast localization images were obtained. Subsequently, multidetector volumetric imaging was performed from the thoracic inlet to below the ischial tuberosities following the administration of 80 mL Omnipaque 350 intravenous contrast. No contrast reaction reported Sagittal, coronal, and MIP oblique sagittal reformatted images were obtained on the CT workstation, uploaded to PACS, and reviewed. This CT examination was performed using dose optimization techniques as appropriate, variously including the following: *Automated exposure control *Adjustment of mA and/or kV according to patient size (this includes techniques or standardized protocols for targeted exams where dose is matched to indication/reason for exam; i.e. extremities or head) *Use of iterative reconstruction technique FINDINGS: QUALITY OF STUDY/CONTRAST BOLUS: Satisfactory. AORTA: Left vertebral artery origin is directly from the aortic arch between the left common carotid and left subclavian arteries. Otherwise, there is typical branching pattern of the aortic arch. Minimal atherosclerotic calcifications present at the celiac and superior mesenteric artery origins without hemodynamically significant luminal narrowing. Minimal focal atherosclerotic calcification is present at the left renal artery origin Moderate atherosclerotic ossification is present in the distal abdominal aorta and also present in the iliac and femoral arteries. There is no aneurysm and no dissection. LUNG: No focal consolidation, nodules or masses. PLEURA: No pleural effusion or pneumothorax. MEDIASTINUM: Normal heart size. No pericardial effusion. No hilar or mediastinal lymphadenopathy. CORONARY ARTERY CALCIFICATION: None visualized on this study. CHEST WALL/AXILLA: No axillary or internal mammary lymphadenopathy. LIVER, GALLBLADDER, AND BILIARY TREE: Liver and gallbladder are unremarkable. Extra hepatic bile duct is dilated measuring 12 mm. PANCREAS: There is peripancreatic fat stranding. There is no pancreatic lesion. SPLEEN: Unremarkable ADRENAL GLANDS AND KIDNEYS: Adrenal glands are unremarkable. Kidneys are within normal limits with no hydronephrosis, hydroureter, or visible stones. BOWEL LOOPS: Stomach is distended with fluid. The appendix is thin-walled and gas-filled. Terminal ileum is unremarkable. Descending colon and rectum are decompressed. LYMPH NODES: There are shotty lymph nodes in the region of the pancreatic head. BONES: Advanced degenerative changes are present at L3-4 with endplate sclerosis, osteophytes, degenerative endplate irregularity, and vacuum phenomena. Degenerative changes are also present at other levels in the lower thoracic and lumbar spine that appear mild to moderate. CT/CT angio abdomen pelvis IMPRESSION: Suspected acute pancreatitis. Extrahepatic bile duct is dilated which could be related to an occult gallstone, or could be secondary to a primary pancreatitis. No aortic dissection or aneurysm. Electronically signed by: Kevin Martinez MD 03/13/2025 03:04 PM EDT
--- NOTE | 2025-03-13 12:28 | ECG_ITS ---
Test Reason : chest pain Blood Pressure : */* mmHG Vent. Rate : 61 BPM Atrial Rate : 61 BPM P-R Int : 174 ms QRS Dur : 94 ms QT Int : 410 ms P-R-T Axes : 66 -44 29 degrees QTcB Int : 412 ms Normal sinus rhythm with sinus arrhythmia Left axis deviation Abnormal ECG When compared with ECG of 01-Dec-2023 08:44, Criteria for Inferior infarct are no longer Present Referred By: Generic ED Physician Electronically Signed By: Marco Canchola
--- NOTE | 2025-03-13 12:48 | ED_ITS ---
HPI - Chest Pain General Chief Complaint: Chest Pain Stated Complaint: Vomiting, Chest Pain Time Seen by Provider: 03/13/25 12:32 Source: patient and family Mode of arrival: ambulatory Limitations: no limitations History of Present Illness HPI narrative: This is a 60 years old the patient presented to the emergency department with a chief complaint of nausea vomiting epigastric abdominal pain radiating to the chest symptoms started about 2 hours ago. Denies any fever or chills. Patient has history of GERD the hypertension steatosis of the liver chronic lower back pain MD complaint: chest pain Onset (ago): hour(s) (2) Timing of current episode: constant Prior episodes: No Onset: during rest Pain location: substernal Pain radiation: none Relieving factors: nothing Exacerbating factors: nothing Associated symptoms: nausea and vomiting Risk Factors Coronary artery disease risk factors: hyperlipidemia and hypertension Thoracic aortic dissection risk factors: none Related Data Home Medications ?Medication ?Instructions ?Recorded ?Confirmed fexofenadine 180 mg tablet 180 mg PO DAILY 02/16/21 (Deena Allergy) omeprazole magnesium 20 mg 20 mg PO DAILY 02/16/21 tablet,delayed release (Prilosec OTC) Previous Rx's ?Medication ?Instructions ?Recorded fluticasone propionate 50 1 spray intranasal Q12H 30 d ays 09/05/24 mcg/actuation nasal #16 grams spray,suspension (Flonase Allergy Relief) losartan 50 mg tablet 50 mg PO DAILY 90 days #90 t abs 12/17/24 simvastatin 5 mg tablet 5 mg PO BEDTIME 90 days #90 tabs 01/12/25 methylprednisolone 4 mg tablets in See Rx Instructions PO PER PKG DIR 01/21/25 a dose pack (Medrol (Filiberto)) 6 days #21 ea methocarbamol 750 mg tablet 750 mg PO BID PRN muscle s pasms 03/06/25 #30 tabs fenofibrate 160 mg tablet 160 mg PO DAILY 90 days #90 tabs 03/12/25 Allergies Allergy/AdvReac Type Severity Reaction Status Date / Time lisinopril Allergy Intermediate Cough Verified 03/13/25 12:44 scallops AdvReac Intermediate VOMITING Verified 03/13/25 12:44 mussels AdvReac Severe N/V Uncoded 03/13/25 12:44 Review of Systems 2 Constitutional: Constitutional: Denies fever(s) Cardiovascular: Cardiovascular: Reports no additional cardiovascular complaints Neurologic: Reports Abnormal speech present [facility] Past Medical History Attestation statement: The following information was validated with the patient. Medical History LFT elevation Colon cancer screening Pain and swelling of left wrist Gastroenteritis Immunization due Cellulitis of left thumb Dog bite of left thumb Myofascial pain syndrome Blood pressure elevated without history of HTN Allergic rhinitis GERD (gastroesophageal reflux disease) Hypertriglyceridemia Impaired glucose tolerance Surgical History History of esophagogastroduodenoscopy (EGD) History of laryngoscopy Left breast mass Family History Family History Mother No problems noted. Father Cancer Melanoma Prostate cancer Social History Social History Housing: House Unable to assess alcohol history related to: Unknown Alcohol intake: current Alcohol intake frequency: 0-2 drinks per day Alcohol type: wine Comment: 5 days a week 1-2 glasses, once Q 2 week 2 glasses of wine(10/2024) Patient Tobacco Use Status: Former Tobacco user Tobacco use type: Cigarette Years Smoked: quit 1989 Smoked in Last 30 Days: No e-Cigarette/Vaping Use: Never Used Second Hand Smoke Exposure: No Use of substances other than those prescribed or required for medical reasons: No Advance Directives: No Advance Directives Information Provided: Yes Do you have a plan to hurt others: No Plan Current occupational status: employed 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 Cognitive needs: No Hearing needs: No Vision needs: Yes Physical Exam 2 Vital Signs: Vital Signs: Last Vital Signs Temp 97.5 F 03/13/25 12:56 Pulse 83 03/13/25 12:56 Resp 25 H 03/13/25 12:56 BP 166/85 H 03/13/25 12:56 Pulse Ox 98 03/13/25 12:56 O2 Del Method Room Air 03/13/25 12:56 BMI result Body Mass Index 26.4 Const: Other: Mild distress General: cooperative Nutritional Appearance: average body habitus O rientation/consciousness: patient oriented x3 Limitations: no limitations HEENT: Head: Yes normal to inspection General nose exam: Normal external nose present Face and sinus: Yes normal facial exam Mouth: Normal oral and palatal mucosa present Neck: Neck: Yes normal visual inspection Chest: Chest palpation & inspection: normal inspection of the chest Cardio: Jugular venous distension: no JVD Rate: regular rate Rhythm: r egular rhythm GI: Inspection: Yes normal to inspection Palpation (GI): Soft to palpation Auscultation: normal bowel sounds Skin: General skin exam: no rashes or lesions noted, elasticity normal and turgor normal Lesions: no lesions Rashes: no rashes Hair: normal Neuro: General: patient oriented x3 Cranial nerves: Yes CN's II-XII intact bilaterally Cognition (Neuro): normal cognition Speech: Abnormal speech present Motor exam (neuro): 5/5 motor strength present throughout Course Reevaluation(s) Reevaluation #1: DOING MUCH BETTER WORKUP SHOWED ACUTE PANCREATITIS CASE WAS DISCUSSED WITH THE TAIL SAWYER/HOSPITALIST Time: 15:36 Medications Administered Discontinued Medications Generic Name Dose Route Start Last Admin Trade Name Freq PRN Reason Stop Dose Admin Hydromorphone HCl 0.5 mg 03/13/25 12:44 03/13/25 12:50 Hydromorphone Hcl 0.5 Mg/0.5 Ml Syringe IVPUSH 03/13/25 12:45 0.5 mg ONCE ONE Administration Protocol Hydromorphone HCl 0.5 mg 03/13/25 13:07 03/13/25 13:17 Hydromorphone Hcl 0.5 Mg/0.5 Ml Syringe IVPUSH 03/13/25 13:08 0.5 mg ONCE ONE Administration Protocol Sodium Chloride 1,000 mls @ 999 mls/hr 03/13/25 12:45 03/13/25 12:53 Ns IVCONT 03/13/25 13:45 999 mls/hr .Q1H1M TAMMIE Administration Iohexol 100 ml 03/13/25 14:38 03/13/25 14:38 Iohexol 350 Mg/Ml 100 Ml Infus..Btl IV 03/13/25 14:39 80 ml ONCE ONE Administration Ondansetron HCl 4 mg 03/13/25 12:44 03/13/25 12:50 Ondansetron Hcl 4 Mg/2 Ml Vial IVPUSH 03/13/25 12:45 4 mg ONCE ONE Administration Medical Decision Making Medical Decision Making MDM Narrative: Patient is here with nausea vomiting chest pain we will obtain labs, administer antiemetic analgesia and reassessed Differential Diagnosis Differential Diagnoses: The differential diagnosis associated with the presentation includes Pancreatitis/acute coronary syndrome/peptic ulcer disease Admission/Observation Consideration of admission/observation: Escalation of care including admission/observation considered Consult Healthcare Provider Management of the patient was discussed with: Hospitalist and Maintenance Shop Manager Lab Data [facility] Lab Attestation statement: I reviewed the patient's lab results. 03/13/25 12:49 03/13/25 12:49 Labs: Lab Results 03/13/25 Range/Units 12:49 WBC 11.0 H (4.8-10.8) X10*3/uL RBC 4.68 (4.60-5.80) X10*6/uL Hgb 14.7 (14.0-18.0) g/dl Hct 42.1 (42.0-52.0) % MCV 90.0 (80.0-98.0) fL MCH 31.4 (27.0-33.0) pg MCHC 34.9 (31.0-36.0) g/dl RDW 12.1 (11.0-16.0) % Plt Count 306 (160-400) X10*3/uL MPV 9.4 (9.4-12.4) fL Immature Gran % (Auto) 0.3 (0.0-0.4) % Neut % (Auto) 74.5 H (45-73) % Lymph % (Auto) 14.3 L (20-40) % [place] % (Auto) 8.9 (2-11) % Eos % (Auto) 1.5 (0-4) % Baso % (Auto) 0.5 (0-2) % Lymph # (Auto) 1.6 (1.2-4.9) X10*3/uL [place] # (Auto) 1.0 (0.1-1.2) X10*3/uL Eos # (Auto) 0.2 (0.0-0.4) X10*3/uL Baso # (Auto) 0.1 (0.0-0.2) X10*3/uL Abs Immat Gran (auto) 0.03 (0.00-0.03) X10*3/uL Absolute Neuts (auto) 8.2 (2.0-8.3) x10*3/uL Absolute Nucleated RBC 0.000 (0.0-0.012) X10*3/uL Nucleated RBC % (auto) 0.0 (0.0-0.2) /100WBC PT 10.9 (10.9-12.4) SEC INR 1.0 (0.9-1.1) APTT 34.4 (26.0-36.8) SEC Sodium 139 (135-145) mmol/L Potassium 4.2 (3.3-5.1) mmol/L Chloride 106 (96-108) mmol/L Carbon Dioxide 22 (22-29) mmol/L Anion Gap 15 (12-20) BUN 33 H (9-16) mg/dL Creatinine 1.27 (0.5-1.4) mg/dL Estim Creat Clear Calc 62.2 Estimated GFR 57 Random Glucose 153 H (60-115) mg/dL Calcium 10.2 D (8.4-10.2) mg/dL Total Bilirubin 0.6 (0.0-1.0) mg/dL AST 26 (5-37) U/L ALT 26 (0-40) U/L Alkaline Phosphatase 56 (39-117) U/L Troponin I High Sens < 2.7 (<3.5-35.0) ng/L Total Protein 7.8 (6.5-8.0) g/dL Albumin 5.0 (3.5-5.0) g/dL Lipase > 3000 H (8-78) U/L Independent Interpretation I performed an independent interpretation of an: EKG, Ultrasound and CT Scan Interpretation: I PERSONALLY REVIEWED THE CT SCAN NO GALLSTONES Radiology Impression Discussion of test interpretation with radiology: I have reviewed the radiologist's reading. Independent Historian Clinical information obtained from an independent historian. History obtained from or confirmed by: Spouse External Record Review External record reviewed: Inpatient record and Office record Prescription Management I considered prescription management with: Pain Medication Critical Care Time Critical Care Time Critical Care Time: Yes Total Critical Care Time: 60 Attestation: TAKING CARE OF THE PATIENT IV DILAUDID, TALKING TO TAIL SAWYER TALKING TO HIS REVIEWING IMAGING Discharge Plan Discharge Clinical Impression: Pancreatitis Qualifiers: Chronicity: acute Pancreatitis type: unspecified pancreatitis type Acute pancreatitis complication: no infection or necrosis Qualified Code(s): K85.90 - Acute pancreatitis without necrosis or infection, unspecified Patient Disposition: Admitted As Inpatient
[2025-03-13] MEDS: HYDROmorphone HCl 0.5 MG/0.5 ML SYRINGE IVPUSH ×2 (12:50→13:17)
[2025-03-13] MEDS: ondansetron HCL 4 MG/2 ML VIAL IVPUSH ×2 (12:50→15:35)
[2025-03-13] MEDS: 0.9 % Sodium Chloride 1,000 ML 999 ML IVCONT ×2 (12:53→15:35)
[2025-03-13 12:54] LABS: MANUAL DIFF FLAG NO
[2025-03-13 13:00] LABS: Basophils Absolute Auto 0.1 X10*3/uL (0.0-0.2); Basophils Percent Auto 0.5 % (0-2); Eosinophils Absolute Auto 0.2 X10*3/uL (0.0-0.4); Eosinophils Percent Auto 1.5 % (0-4); Hematocrit 42.1 % (42.0-52.0); Hemoglobin 14.7 g/dl (14.0-18.0); Imm Gran Abs Auto 0.03 X10*3/uL (0.00-0.03); Imm Gran Pct Auto 0.3 % (0.0-0.4); Lymphocytes Absolute Auto 1.6 X10*3/uL (1.2-4.9); Lymphocytes Percent Auto 14.3 % (20-40); Mean Corpuscular HGB Conc 34.9 g/dl (31.0-36.0); Mean Corpuscular Hemoglobin 31.4 pg (27.0-33.0); Mean Platelet Volume 9.4 fL (9.4-12.4); Monocytes Percent Auto 8.9 % (2-11); Neutrophils Absolute Auto 8.2 x10*3/uL (2.0-8.3); Neutrophils Percent Auto 74.5 % (45-73); Platelet Count 306 X10*3/uL (160-400); Red Blood Count 4.68 X10*6/uL (4.60-5.80); Red Cell Distribution Width 12.1 % (11.0-16.0)
--- NOTE | 2025-03-13 13:01 | PC.NURSE ---
60 M presents to ED with epigastic and chest pain, 04/04, that started during lunch. Pt had n/v and stated epigastric pain started 2 days ago but progressed to chest pain today at lunch. RR even and unlabored. Pt had an episode of vomitting. IV access to 20g to LAC. Pt awaiting CT
[2025-03-13 13:14] LABS: Alanine Aminotransferase 26 U/L (0-40); Alkaline Phosphatase 56 U/L (39-117); Anion Gap 15 (12-20); Aspartate Amino Transferase 26 U/L (5-37); Bilirubin Total 0.6 mg/dL (0.0-1.0); Blood Urea Nitrogen 33 mg/dL (9-16); Calcium 10.2 mg/dL (8.4-10.2); Carbon Dioxide 22 mmol/L (22-29); Chloride 106 mmol/L (96-108); Creatinine Clr Calc Pharmacy 62.2; Estimated Glomerular Filt Rate 57; Glucose Random 153 mg/dL (60-115); Potassium 4.2 mmol/L (3.3-5.1); Prothrombin Time 10.9 SEC (10.9-12.4); Sodium 139 mmol/L (135-145); Total Protein 7.8 g/dL (6.5-8.0)
[2025-03-13 13:16] LABS: Partial Thromboplastin Time 34.4 SEC (26.0-36.8)
[2025-03-13 13:30] LABS: Troponin-I High Sensitivity < 2.7 ng/L (<3.5-35.0)
[2025-03-13 13:34] LABS: Lipase > 3000 U/L (8-78)
[2025-03-13] MEDS: iohexoL 350 MG/ML 100 ML INFUS..BTL IV (14:38)
--- NOTE | 2025-03-13 15:09 | PM.IMHP ---
History of Present Illness Date of Service: 03/13/25 Chief Complaint: Abdominal pain 60/m with hypercholesterolemia, GERD, impaired glucose tolerance, essential hypertension, hepatic steatosis, Gordon's esophagus, and osteoarthritis of the right knee, degenerative joint disease , drinks alcohol socially presents with sudden onset of severe epigastric pain without radiation, no fever, but had nausea. CT of abdomen show Extrahepatic bile duct is dilated which could be related to an occult gallstone, US is show no gallstone. Lipase level > 3000. He has gotten some relief wtih IV dilaudid. TG level is 212. Review of Systems Review of Systems: Gen: no fever Resp: no sob, no cough CV: no chest, no JORDAN, no leg edema GI: No n/v, no abd pain Neuro: No confusion Yes all other systems are reviewed and are negative [facility] Medical History LFT elevation Colon cancer screening Pain and swelling of left wrist Gastroenteritis Immunization due Cellulitis of left thumb Dog bite of left thumb Myofascial pain syndrome Blood pressure elevated without history of HTN Allergic rhinitis GERD (gastroesophageal reflux disease) Hypertriglyceridemia Impaired glucose tolerance Family History Mother No problems noted. Father Cancer Melanoma Prostate cancer Surgical History History of esophagogastroduodenoscopy (EGD) History of laryngoscopy Left breast mass Social History Household Members: Spouse Housing: House Do you presently have visiting nurse or other home services: No Unable to assess alcohol history related to: Unknown Alcohol intake: current Alcohol intake frequency: 0-2 drinks per day Alcohol type: wine Comment: 5 days a week 1-2 glasses, once Q 2 week 2 glasses of wine(10/2024) Patient Tobacco Use Status: Former Tobacco user Tobacco use type: Cigarette Years Smoked: quit 1989 e-Cigarette/Vaping Use: Never Used Second Hand Smoke Exposure: No service: No Current occupational status: employed 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 Cognitive needs: No Hearing needs: No Vision needs: Yes Meds Allergies Allergy/AdvReac Type Severity Reaction Status Date / Time lisinopril Allergy Intermediate Cough Verified 03/13/25 12:44 scallops AdvReac Intermediate VOMITING Verified 03/13/25 12:44 mussels AdvReac Severe N/V Uncoded 03/13/25 12:44 Active Medications: Current Medications Acetaminophen (Acetaminophen 325 Mg Tablet) 650 mg PO Q6H PRN PRN Reason: Pain, Mild 1-3,fever,headache Al Hydroxide/Mg Hydroxide (Magnesium Hydrox/Alum Hydrox 30 Ml Oral.Susp) 30 ml PO Q4H PRN PRN Reason: Heartburn Calcium Carbonate (Calcium Carbonate 750 Mg Tab.Chew) 750 mg PO Q4H PRN PRN Reason: Heartburn Enoxaparin Sodium (Enoxaparin Sodium 40 Mg/0.4 Ml Syringe) 40 mg SUBCUT Q24H TAMMIE Hydromorphone HCl (Hydromorphone Hcl 1 Mg/Ml Syringe) 0.5 mg IVPUSH Q4H PRN; Protocol PRN Reason: Pain, Severe (Pain Scale 7-10) Sodium Chloride (Ns) 1,000 mls @ 999 mls/hr IVCONT .Q1H1M [facility] Stop: 03/13/25 15:45 Lactated Ringer's (Lr) 1,000 mls @ 125 mls/hr IVCONT .Q8H TAMMIE Magnesium Hydroxide (Milk Of Magnesia 30 Ml Oral.Susp) 30 ml PO DAILY PRN PRN Reason: Constipation Melatonin (Melatonin 3 Mg Tablet) 6 mg PO BEDTIME PRN PRN Reason: Insomnia Ondansetron HCl (Ondansetron Hcl 4 Mg/2 Ml Vial) 4 mg IVPUSH Q8H PRN PRN Reason: Nausea and Vomiting Sodium Chloride (0.9 % Sodium Chloride Flush 3 Ml Syringe) 3 ml IVFLUSH QSHIFT [facility] Home Medications ?Medication ?Instructions ?Recorded ?Confirmed ?Last Taken ?Type fexofenadine 180 mg tablet 180 mg PO DAILY 02/16/21 03/13/25 03/13/25 06:00 History (Deena Allergy) omeprazole magnesium 20 mg 20 mg PO DAILY@0630 02/16/21 03/13/25 03/13/25 06:00 History tablet,delayed release (Prilosec OTC) fluticasone propionate 50 1 spray intranasal BID 03/13/25 03/13/25 03/13/25 06:00 History mcg/actuation nasal spray,suspension (Flonase Allergy Relief) simvastatin 5 mg tablet 5 mg PO DAILY 03/13/25 03/13/25 03/13/25 06:00 History Physical Exam Vital Signs and Narrative: Vital Signs: Last Vital Signs Temp 97.5 F 03/13/25 12:56 Pulse 83 03/13/25 12:56 Resp 25 H 03/13/25 12:56 BP 166/85 H 03/13/25 12:56 Pulse Ox 98 03/13/25 12:56 O2 Del Method Room Air 03/13/25 12:56 BMI result Body Mass Index 26.4 Const: Other: General: Alert, oriented x3, no acute distress. HEENT: Normocephalic, atraumatic. PERRL, EOMI, no papilledema. Oropharynx clear. Neck: Supple, no nuchal rigidity. Respiratory: Lungs clear bilaterally Cardiovascular: Regular rate/rhythm, no murmurs. Abdomen: Soft, epigastric tenderness, non-distended. Skin: No rashes or petechiae. Neurologic: CN II?XII intact. Strength 5/5, sensation intact. Negative Kernig?s/Brudzinski?s. Results Labs 03/14/25 10:37 03/14/25 10:37 Labs: Laboratory Results - last 24 hr 03/13/25 12:49 MCV 90.0 MCH 31.4 MCHC 34.9 RDW 12.1 Plt Count 306 MPV 9.4 Immature Gran % (Auto) 0.3 Neut % (Auto) 74.5 H Lymph % (Auto) 14.3 L [place] % (Auto) 8.9 Eos % (Auto) 1.5 Baso % (Auto) 0.5 Lymph # (Auto) 1.6 [place] # (Auto) 1.0 Eos # (Auto) 0.2 Baso # (Auto) 0.1 Abs Immat Gran (auto) 0.03 Absolute Neuts (auto) 8.2 Absolute Nucleated RBC 0.000 Nucleated RBC % (auto) 0.0 PT 10.9 INR 1.0 APTT 34.4 Anion Gap 15 Estim Creat Clear Calc 62.2 Estimated GFR 57 Random Glucose 153 H Calcium 10.2 D Total Bilirubin 0.6 AST 26 ALT 26 Alkaline Phosphatase 56 Troponin I High Sens < 2.7 Total Protein 7.8 Albumin 5.0 Lipase > 3000 H Imaging Radiologist's Impressions: Impressions Chest X-Ray 03/13/25 12:00 IMPRESSION: No active pulmonary disease. Electronically signed by: Cong Diaz MD 03/13/2025 01:19 PM EDT RP Chest CTA 03/13/25 12:46 IMPRESSION: Suspected acute pancreatitis. Extrahepatic bile duct is dilated which could be related to an occult gallstone, or could be secondary to a primary pancreatitis. No aortic dissection or aneurysm. Electronically signed by: Kevin Martinez MD 03/13/2025 03:04 PM EDT RP Abdomen/Pelvis CTA 03/13/25 13:46 IMPRESSION: Suspected acute pancreatitis. Extrahepatic bile duct is dilated which could be related to an occult gallstone, or could be secondary to a primary pancreatitis. No aortic dissection or aneurysm. Electronically signed by: Kevin Martinez MD 03/13/2025 03:04 PM EDT RP Assessment and Plan (1) Pancreatitis: Qualifiers: Acute pancreatitis complication: no infection or necrosis Chronicity: acute Pancreatitis type: unspecified pancreatitis type Qualified Code(s): K85.90 - Acute pancreatitis without necrosis or infection, unspecified Status: Acute Plan 60/m with hypercholesterolemia, GERD, impaired glucose tolerance, essential hypertension, hepatic steatosis, Gordon's esophagus, and osteoarthritis of the right knee, degenerative joint disease , drinks alcohol socially presents with sudden onset of severe epigastric, Lipase > 3000, TG 200, clinical presentation c/w acute pancreatitis Acute pancreatitis TG 212 US no gallstones LFTs wnl Will get MRCP IVF, pain medication and bowel rest GI eval repeat lipase in the morning Hold Losartan as can cause pancreatitis in rare cases HLD continue statin and fenofibrate GERD PPI DVT prophylaxis: Lovenox Quality Stroke Does the patient have a stroke diagnosis?: No VTE Prior VTE?: No VTE Risk Level:: Medical - moderate - high VTE Device Contraindication: Treatment Not Indicated VTE Drug Contraindication: N/A - Med Ordered
[2025-03-13] MEDS: Enoxaparin Sodium 40 MG/0.4 ML SYRINGE SUBCUT (15:35)
[2025-03-13 15:44] LABS: Cholesterol 195 mg/dL (<200); HDL Cholesterol 44 mg/dL (>40); LDL Cholesterol Calculated 109 mg/dL (<100); Triglycerides 212 mg/dL (<150)
[2025-03-13] MEDS: HYDROmorphone HCl 1 MG/ML SYRINGE 0.5 MG IVPUSH ×2 (16:18→18:12)
--- NOTE | 2025-03-13 16:22 | PHA.MEDREC ---
Addendum entered by Marvin Carmona karma 03/13/25 16:34: med rec reviewed Original Note: Pharmacy Consult ? Medication Reconciliation Pharmacy has completed the medication reconciliation. Spoke to patient to confirm med list. Patient new all of his medications. Patient states he hasn't started Methocarbamol 750 mg. Patient had all of his medications today. patient confirmed Simvastatin 5 mg he takes in the morning.
--- NOTE | 2025-03-13 17:07 | PM.GICN ---
History of Present Illness Data of Consult Service Date: 03/13/25 Primary Care Provider: Lynn Sheldon MD HPI Reason for consult: pancreatitis 60/m with hypercholesterolemia, GERD, impaired glucose tolerance, essential hypertension, hepatic steatosis, Gordon's esophagus, and osteoarthritis of the right knee, degenerative joint disease , who I am seeing for assessment for pancreatitis Patient had sudden onset epigastric 10/10 sharp abdominal pain going across the top of the abdomen worse with lying down, helped by dilaudid. HE had some nausea. No fever, no chills and no such pain in the past. No hx of gallstones - no jaundice Drinks alcohol socially, not had a drink for a while. no new meds LABS: Lipase level > 3000. TG 212 IMAGING: CT- Extrahepatic bile duct is dilated, pancreatitis, US_ nml CBD Review of Systems Review of Systems: Constitutional : No Weight loss, No Fever, No Chills ENT/Mouth : No sore throat, No Rhinorrhea Eyes: No Swelling, No Redness Cardiovascular : No Chest Pain, No SOB, No Edema Respiratory : No Cough, No Sputum, No Wheezing Gastrointestinal : see HPI Genitourinary : NO Dysuria, No Urinary Frequency, No Hematuria, No Urgency Musculoskeletal : + joint pain, No Myalgias, No Joint Swelling Skin : No Skin Lesions, No rash Neuro : No Weakness, No Numbness, No Dizziness, No Headache Psych : No Anxiety/Panic, No Depression Heme/Lymph: No Bruising, No Lymphadenopathy Endocrine : No Polyuria, No Polydipsia All other systems reviewed and are negative. [facility] Past Medical History Medical History (Updated 03/13/25 @ 14:23 by Basilio Box MD) LFT elevation Colon cancer screening Pain and swelling of left wrist Gastroenteritis Immunization due Cellulitis of left thumb Dog bite of left thumb Myofascial pain syndrome Blood pressure elevated without history of HTN Allergic rhinitis GERD (gastroesophageal reflux disease) Hypertriglyceridemia Impaired glucose tolerance Family History Family History Mother No problems noted. Father Cancer Melanoma Prostate cancer Surgical History Surgical History History of esophagogastroduodenoscopy (EGD) History of laryngoscopy Left breast mass Social History Social History Housing: House Unable to assess alcohol history related to: Unknown Alcohol intake: current Alcohol intake frequency: 0-2 drinks per day Alcohol type: wine Comment: 5 days a week 1-2 glasses, once Q 2 week 2 glasses of wine(10/2024) Patient Tobacco Use Status: Former Tobacco user Tobacco use type: Cigarette Years Smoked: quit 1989 Smoked in Last 30 Days: No e-Cigarette/Vaping Use: Never Used Second Hand Smoke Exposure: No Use of substances other than those prescribed or required for medical reasons: No Advance Directives: No Advance Directives Information Provided: Yes Do you have a plan to hurt others: No Plan Current occupational status: employed 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 Cognitive needs: No Hearing needs: No Vision needs: Yes Meds Allergies Allergy/AdvReac Type Severity Reaction Status Date / Time lisinopril Allergy Intermediate Cough Verified 03/13/25 12:44 scallops AdvReac Intermediate VOMITING Verified 03/13/25 12:44 mussels AdvReac Severe N/V Uncoded 03/13/25 12:44 Active Medications: Current Medications Acetaminophen (Acetaminophen 325 Mg Tablet) 650 mg PO Q6H PRN PRN Reason: Pain, Mild 1-3,fever,headache Al Hydroxide/Mg Hydroxide (Magnesium Hydrox/Alum Hydrox 30 Ml Oral.Susp) 30 ml PO Q4H PRN PRN Reason: Heartburn Atorvastatin Calcium (Atorvastatin Calcium 10 Mg Tablet) 5 mg PO DAILY TAMMIE Calcium Carbonate (Calcium Carbonate 750 Mg Tab.Chew) 750 mg PO Q4H PRN PRN Reason: Heartburn Enoxaparin Sodium (Enoxaparin Sodium 40 Mg/0.4 Ml Syringe) 40 mg SUBCUT Q24H [facility] Last Admin: 03/13/25 15:35 Dose: 40 mg Fenofibrate (Fenofibrate 160 Mg Tablet) 160 mg PO DAILY [facility] Fluticasone Propionate (Fluticasone Propionate Nasal 16 Gm Friona) 1 spray NOSTRIL-B BID [facility] Hydromorphone HCl (Hydromorphone Hcl 1 Mg/Ml Syringe) 0.5 mg IVPUSH Q4H PRN; Protocol PRN Reason: Pain, Severe (Pain Scale 7-10) Last Admin: 03/13/25 16:18 Dose: 0.5 mg Lactated Ringer's (Lr) 1,000 mls @ 125 mls/hr IVCONT .Q8H TAMMIE Loratadine (Loratadine 10 Mg Tablet) 10 mg PO DAILY [facility] Magnesium Hydroxide (Milk Of Magnesia 30 Ml Oral.Susp) 30 ml PO DAILY PRN PRN Reason: Constipation Melatonin (Melatonin 3 Mg Tablet) 6 mg PO BEDTIME PRN PRN Reason: Insomnia Omeprazole (Omeprazole 20 Mg Capsule.Dr) 20 mg PO DAILY@0630 [facility] Ondansetron HCl (Ondansetron Hcl 4 Mg/2 Ml Vial) 4 mg IVPUSH Q8H PRN PRN Reason: Nausea and Vomiting Sodium Chloride (0.9 % Sodium Chloride Flush 3 Ml Syringe) 3 ml IVFLUSH QSHIFT [facility] Home Medications ?Medication ?Instructions ?Recorded ?Confirmed ?Last Taken ?Type fexofenadine 180 mg tablet 180 mg PO DAILY 02/16/21 03/13/25 03/13/25 06:00 History (Deena Allergy) omeprazole magnesium 20 mg 20 mg PO DAILY@0630 02/16/21 03/13/25 03/13/25 06:00 History tablet,delayed release (Prilosec OTC) fluticasone propionate 50 1 spray intranasal BID 03/13/25 03/13/25 03/13/25 06:00 History mcg/actuation nasal spray,suspension (Flonase Allergy Relief) simvastatin 5 mg tablet 5 mg PO DAILY 03/13/25 03/13/25 03/13/25 06:00 History Physical Exam Vital Signs: Vital Signs: Last Vital Signs Temp 98.1 F 03/13/25 15:51 Pulse 68 03/13/25 15:51 Resp 13 03/13/25 15:51 BP 166/85 H 03/13/25 12:56 Pulse Ox 99 03/13/25 15:51 O2 Del Method Room Air 03/13/25 15:51 BMI result Body Mass Index 26.4 EXAM: GENERAL: The patient is well developed and nontoxic. VITAL SIGNS:see workflow HEENT: Nonicteric sclerae, PERRLA, EOMI. Oropharynx clear. Moist mucous membranes. Conjunctivae appear well perfused. No thyroid mass. CHEST: Chest wall is nontender. HEART: Regular rate and rhythm without murmurs. LUNGS: Clear to auscultation bilaterally. ABDOMEN: Soft, positive bowel sounds, tender epigastrium, no organomegaly.no flank tenderness SKIN: No rash, no excessive bruising, petechiae, or purpura. NEUROLOGIC: Cranial nerves II-XII intact without motor/sensory deficit. Psych: normal affect Results Labs 03/13/25 12:49 03/13/25 12:49 Labs: Short CBC 03/13/25 Range/Units 12:49 WBC 11.0 H (4.8-10.8) X10*3/uL Hgb 14.7 (14.0-18.0) g/dl Hct 42.1 (42.0-52.0) % Plt Count 306 (160-400) X10*3/uL BMP 03/13/25 12:49 Sodium 139 Potassium 4.2 Chloride 106 Carbon Dioxide 22 BUN 33 H Creatinine 1.27 Calcium 10.2 D Liver Function 03/13/25 Range/Units 12:49 Total Bilirubin 0.6 (0.0-1.0) mg/dL AST 26 (5-37) U/L ALT 26 (0-40) U/L Alkaline Phosphatase 56 (39-117) U/L Albumin 5.0 (3.5-5.0) g/dL Imaging CT scan - abdomen: Attestation: I personally reviewed and interpreted this imaging study as follows: (pancreatitis, cbd dilated ) Assessment and Plan (1) Pancreatitis: Qualifiers: Acute pancreatitis complication: no infection or necrosis Chronicity: acute Pancreatitis type: unspecified pancreatitis type Qualified Code(s): K85.90 - Acute pancreatitis without necrosis or infection, unspecified Status: Acute Plan 1/ Pancreatitis, no mass seen on imaging, no obvious stones, but CBD was dilated on CT but not on US. may ahve passed a stone. Less common causes, IgG4 disease, autoimmune, viral, idiopathic, panc divisium, PLAN: 1/ Fluid resus and allow PO diet as tolerated, analgesia, 2/ MRI in 4 weeks to reassess pancreas 3/ check celiac serology, IgG 4, KRISTEN Procedures Date of Service Date of Service: 03/13/25
[2025-03-13] MEDS: 0.9 % Sodium Chloride Flush 3 ML SYRINGE IVFLUSH (18:03)
[2025-03-13] MEDS: Lactated Ringers 1,000 ML 125 ML IVCONT (18:04)
--- NOTE | 2025-03-13 18:27 | PC.NURSE ---
Pt arrived to unit around 5:50pm with severe pain. Dilaudid was recently administered 16:18 in the ER with little to no effect. MD was contacted
--- NOTE | 2025-03-13 18:32 | PC.NURSE ---
Pt arrived to unit at 5:50 pm in ecruciating 10/10 pain as evidenced by pt reports and elevgated RR and blood pressure. Pt was given dilaudid 0.5mg at 16:18 in the ER wiht little to no effect. was contacted and advised this RN to give another dose of 0.5mg immediately. Med was administered under current PRN order with a note that approved early administration.
[2025-03-13] MEDS: oxyCODONE HCl Immed Release 5 MG TABLET PO (20:17)
[2025-03-13] MEDS: Acetaminophen 1,000 MG/100 ML PIGGYBACK 400 MG IV (20:19)
[2025-03-13] MEDS: Fluticasone Propionate Nasal 16 GM SPRAY 1 SPRAY NOSTRIL-B (21:25)
[2025-03-13] MEDS: HYDROmorphone HCl 1 MG/ML SYRINGE IVPUSH (22:49)
[2025-03-14] MEDS: HYDROmorphone HCl 1 MG/ML SYRINGE IVPUSH ×5 (02:42→20:34)
[2025-03-14 03:20] VITALS: BP 130/75; PULSE 69; RESP 16; TEMP 36.3; O2SAT 96
[2025-03-14] MEDS: Lactated Ringers 1,000 ML 125 ML IVCONT ×3 (03:45→23:03)
[2025-03-14] MEDS: Acetaminophen 1,000 MG/100 ML PIGGYBACK 400 MG IV ×3 (05:55→19:11)
[2025-03-14] MEDS: Omeprazole 20 MG CAPSULE.DR PO (05:55)
[2025-03-14 07:19] VITALS: BP 126/79; PULSE 63; RESP 16; TEMP 36.1; O2SAT 97
[2025-03-14] MEDS: Loratadine 10 MG TABLET PO (07:37)
[2025-03-14] MEDS: Fenofibrate 160 MG TABLET PO (07:38)
[2025-03-14] MEDS: Atorvastatin Calcium 10 MG TABLET 5 MG PO (07:38)
[2025-03-14] MEDS: Fluticasone Propionate Nasal 16 GM SPRAY 1 SPRAY NOSTRIL-B ×2 (07:39→19:13)
[2025-03-14] MEDS: 0.9 % Sodium Chloride Flush 3 ML SYRINGE IVFLUSH ×2 (07:41→16:09)
[2025-03-14] MEDS: oxyCODONE HCl Immed Release 5 MG TABLET PO ×3 (09:41→23:03)
[2025-03-14 10:47] LABS: Hematocrit 40.8 % (42.0-52.0); Hemoglobin 13.9 g/dl (14.0-18.0); Mean Corpuscular HGB Conc 34.1 g/dl (31.0-36.0); Mean Corpuscular Hemoglobin 31.6 pg (27.0-33.0); Mean Corpuscular Volume 92.7 fL (80.0-98.0); Mean Platelet Volume 9.3 fL (9.4-12.4); Platelet Count 248 X10*3/uL (160-400); Red Cell Distribution Width 12.1 % (11.0-16.0)
[2025-03-14 11:00] LABS: Anion Gap 10 (12-20); Blood Urea Nitrogen 19 mg/dL (9-16); Calcium 9.5 mg/dL (8.4-10.2); Carbon Dioxide 27 mmol/L (22-29); Chloride 105 mmol/L (96-108); Estimated Glomerular Filt Rate > 60; Glucose Random 116 mg/dL (60-115); Potassium 3.9 mmol/L (3.3-5.1); Sodium 138 mmol/L (135-145)
[2025-03-14 11:10] LABS: Lipase 2182 U/L (8-78)
--- NOTE | 2025-03-14 11:52 | MHC.CM.PN ---
PT REPORTS HE LIVES WITH HIS AND IS INDEPENDENT WITH CARE HE HAS NO DME AND NO SERVICES COPY OF HCP REQUESTED, HE REPORTS HIS IS HIS AGENT PCP: OFELIA ASENCIO DCP: HOME NO SERVICES VIA PRIVATE TRANSPORT
--- NOTE | 2025-03-14 13:39 | P.PNIM_ITS ---
Subjective Subjective Date of Service: 03/14/25 Interval History: Seen in follow up for acute pancreatitis still has some epigastric pain but overall better with present pain meds including dilaudid, iv tylenol and oral oxycodone lipase level is trending down, MRCP showed no stone but confirmed pancreatitis Physical Exam 2 Vital Signs: Vital Signs: Last Vital Signs Temp 97.0 F 03/14/25 07:19 Pulse 63 03/14/25 07:19 Resp 16 03/14/25 07:19 BP 126/79 03/14/25 07:19 Pulse Ox 97 03/14/25 07:19 O2 Del Method Room Air 03/14/25 07:19 BMI result Body Mass Index 26.3 Const: Other: General: Alert, oriented x3, no acute distress. Respiratory: Lungs clear bilaterally Cardiovascular: Regular rate/rhythm, no murmurs. Abdomen: Soft, moderate epigastric tenderness, non-distended. Skin: No rashes or petechiae. Neuro: NF Objective Data Active Medications Al Hydroxide/Mg Hydroxide (Magnesium Hydrox/Alum Hydrox 30 Ml Oral.Susp) 30 ml PO Q4H PRN PRN Reason: Heartburn Atorvastatin Calcium (Atorvastatin Calcium 10 Mg Tablet) 5 mg PO DAILY [facility] Last Admin: 03/14/25 07:38 Dose: 5 mg Documented By: SUSIE Calcium Carbonate (Calcium Carbonate 750 Mg Tab.Chew) 750 mg PO Q4H PRN PRN Reason: Heartburn Enoxaparin Sodium (Enoxaparin Sodium 40 Mg/0.4 Ml Syringe) 40 mg SUBCUT Q24H [facility] Last Admin: 03/13/25 15:35 Dose: 40 mg Documented By: MARISELA Fenofibrate (Fenofibrate 160 Mg Tablet) 160 mg PO DAILY [facility] Last Admin: 03/14/25 07:38 Dose: 160 mg Documented By: SUSIE Fluticasone Propionate (Fluticasone Propionate Nasal 16 Gm [place]) 1 spray NOSTRIL-B BID [facility] Last Admin: 03/14/25 07:39 Dose: 1 spray Documented By: SUSIE Hydromorphone HCl (Hydromorphone Hcl 1 Mg/Ml Syringe) 1 mg IVPUSH Q4H PRN; Protocol PRN Reason: Pain, Severe (Pain Scale 7-10) Last Admin: 03/14/25 11:51 Dose: 1 mg Documented By: NILA Lactated Ringer's (Lr) 1,000 mls @ 125 mls/hr IVCONT .Q8H [facility] Last Infusion: 03/14/25 11:30 Dose: 125 mls/hr Documented By: SUSIE Acetaminophen (Ofirmev) 1,000 mg in 100 mls @ 400 mls/hr IV Q6H PRN PRN Reason: Pain, Mild (Pain Scale 1-3) Last Infusion: 03/14/25 06:17 Dose: Infused Documented By: RICK Loratadine (Loratadine 10 Mg Tablet) 10 mg PO DAILY [facility] Last Admin: 03/14/25 07:37 Dose: 10 mg Documented By: SUSIE Magnesium Hydroxide (Milk Of Magnesia 30 Ml Oral.Susp) 30 ml PO DAILY PRN PRN Reason: Constipation Melatonin (Melatonin 3 Mg Tablet) 6 mg PO BEDTIME PRN PRN Reason: Insomnia Omeprazole (Omeprazole 20 Mg Capsule.Dr) 20 mg PO DAILY@0630 [facility] Last Admin: 03/14/25 05:55 Dose: 20 mg Documented By: RICK Ondansetron HCl (Ondansetron Hcl 4 Mg/2 Ml Vial) 4 mg IVPUSH Q8H PRN PRN Reason: Nausea and Vomiting Oxycodone HCl (Oxycodone Hcl Immed Release 5 Mg Tablet) 5 mg PO Q4H PRN PRN Reason: Pain, Moderate(Pain Scale 4-6) Last Admin: 03/14/25 09:41 Dose: 5 mg Documented By: SUSIE Sodium Chloride (0.9 % Sodium Chloride Flush 3 Ml Syringe) 3 ml IVFLUSH QSHIFT [facility] Last Admin: 03/14/25 07:41 Dose: 3 ml Documented By: SUSIE Labs 03/14/25 10:37 03/14/25 10:37 Labs: Laboratory Results - last 24 hr 03/13/25 03/14/25 15:23 10:37 MCV 92.7 MCH 31.6 MCHC 34.1 RDW 12.1 Plt Count 248 MPV 9.3 L Absolute Nucleated RBC 0.000 Nucleated RBC % (auto) 0.0 Anion Gap 10 L Estim Creat Clear Calc 79.0 Estimated GFR > 60 Random Glucose 116 H Calcium 9.5 D Triglycerides 212 H Cholesterol 195 LDL Cholesterol, Calc 109 H HDL Cholesterol 44 Lipase 2182 H Assessment and Plan (1) Pancreatitis: Status: Acute Plan 60/m with hypercholesterolemia, GERD, impaired glucose tolerance, essential hypertension, hepatic steatosis, Gordon's esophagus, and osteoarthritis of the right knee, degenerative joint disease , drinks alcohol socially presents with sudden onset of severe epigastric, Lipase > 3000, TG 200, clinical presentation c/w acute pancreatitis Acute pancreatitis, eitology unclear at this time TG 212 MRCP, no biliary obstruction, + pancreatitis Lipase down from >3000 to 2182 tody US no gallstones LFTs wnl GI consult noted: Repeat MRI in 4 week, KRISTEN, IgG 4 will be checked IVF, pain medication (IV dilaudid, IV APAP, oral oxycodone) GI eval repeat lipase in the morning Hold Losartan as can cause pancreatitis in rare cases HLD continue statin and fenofibrate GERD PPI DVT prophylaxis: Lovenox Out of bed, ambulate Plan of care discussed with patient and signficant other Quality Stroke Does the patient have a stroke diagnosis?: No VTE Prior VTE?: No VTE Risk Level:: Medical - moderate - high VTE Device Contraindication: Treatment Not Indicated VTE Drug Contraindication: N/A - Med Ordered
[2025-03-14 15:24] VITALS: BP 133/76; PULSE 74; RESP 18; TEMP 36.8; O2SAT 96
[2025-03-14] MEDS: Enoxaparin Sodium 40 MG/0.4 ML SYRINGE SUBCUT (16:09)
[2025-03-14] MEDS: Docusate Sodium 100 MG CAPSULE PO (19:10)
[2025-03-14 20:00] VITALS: BP 140/73; PULSE 76; RESP 20; TEMP 36.8; O2SAT 76
[2025-03-15] MEDS: HYDROmorphone HCl 1 MG/ML SYRINGE IVPUSH ×4 (00:37→22:01)
[2025-03-15] MEDS: Melatonin 3 MG TABLET 6 MG PO ×2 (00:39→23:59)
[2025-03-15] MEDS: oxyCODONE HCl Immed Release 5 MG TABLET PO ×5 (03:13→23:59)
[2025-03-15] MEDS: Acetaminophen 1,000 MG/100 ML PIGGYBACK 400 MG IV ×3 (03:14→17:58)
[2025-03-15 03:32] VITALS: BP 137/69; PULSE 82; RESP 18; TEMP 37.1; O2SAT 94
[2025-03-15] MEDS: Omeprazole 20 MG CAPSULE.DR PO (06:20)
[2025-03-15 06:35] LABS: Hematocrit 36.3 % (42.0-52.0); Hemoglobin 12.4 g/dl (14.0-18.0); Mean Corpuscular HGB Conc 34.2 g/dl (31.0-36.0); Mean Corpuscular Hemoglobin 31.5 pg (27.0-33.0); Mean Corpuscular Volume 92.1 fL (80.0-98.0); Mean Platelet Volume 9.9 fL (9.4-12.4); Platelet Count 234 X10*3/uL (160-400); Red Blood Count 3.94 X10*6/uL (4.60-5.80); Red Cell Distribution Width 11.8 % (11.0-16.0); White Blood Count 13.1 X10*3/uL (4.8-10.8)
[2025-03-15 06:51] LABS: Alanine Aminotransferase 13 U/L (0-40); Albumin Level 4.1 g/dL (3.5-5.0); Alkaline Phosphatase 50 U/L (39-117); Anion Gap 15 (12-20); Aspartate Amino Transferase 20 U/L (5-37); Bilirubin Direct 0.6 mg/dL (0.0-0.5); Bilirubin Total 1.1 mg/dL (0.0-1.0); Blood Urea Nitrogen 13 mg/dL (9-16); Calcium 9.3 mg/dL (8.4-10.2); Carbon Dioxide 22 mmol/L (22-29); Chloride 103 mmol/L (96-108); Creatinine Clr Calc Pharmacy 76.7; Estimated Glomerular Filt Rate > 60; Glucose Random 91 mg/dL (60-115); Potassium 3.6 mmol/L (3.3-5.1); Sodium 136 mmol/L (135-145); Total Protein 6.5 g/dL (6.5-8.0)
[2025-03-15 07:12] LABS: Lipase 477 U/L (8-78)
[2025-03-15] MEDS: Lactated Ringers 1,000 ML 125 ML IVCONT ×2 (07:40→18:03)
[2025-03-15] MEDS: Fenofibrate 160 MG TABLET PO (07:41)
[2025-03-15] MEDS: Atorvastatin Calcium 10 MG TABLET 5 MG PO (07:41)
[2025-03-15] MEDS: Loratadine 10 MG TABLET PO (07:41)
[2025-03-15] MEDS: Docusate Sodium 100 MG CAPSULE PO ×2 (07:42→22:00)
[2025-03-15] MEDS: Fluticasone Propionate Nasal 16 GM SPRAY 1 SPRAY NOSTRIL-B ×2 (07:42→22:03)
[2025-03-15 08:00] VITALS: BP 144/79; PULSE 72; RESP 16; TEMP 36.6; O2SAT 95
--- NOTE | 2025-03-15 09:12 | HO.PM.IMPN ---
Subjective Subjective Date of Service: 03/15/25 Interval History: Seen in follow up for acute pancreatitis Still has some pain, but overall better than yesterday, and less reliance on pain med. No nausea or vomitting, Lipase level has dropped significantly since yesterday, from 2182 to 477 today Physical Exam Vital Signs: Vital Signs: Last Vital Signs Temp 97.9 F 03/15/25 08:00 Pulse 72 03/15/25 08:00 Resp 16 03/15/25 08:00 BP 144/79 H 03/15/25 08:00 Pulse Ox 95 03/15/25 08:00 O2 Del Method Room Air 03/15/25 08:00 BMI result Body Mass Index 26.3 Const: Other: General: Alert, oriented x3, no acute distress. Cardiovascular: Regular rate/rhythm, no murmurs. Abdomen: Soft, mild to mo epigastric tenderness, non-distended. Skin: No rashes or petechiae. Neuro: NF Objective Data Active Medications Al Hydroxide/Mg Hydroxide (Magnesium Hydrox/Alum Hydrox 30 Ml Oral.Susp) 30 ml PO Q4H PRN PRN Reason: Heartburn Atorvastatin Calcium (Atorvastatin Calcium 10 Mg Tablet) 5 mg PO DAILY [facility] Last Admin: 03/15/25 07:41 Dose: 5 mg Documented By: ERIC Calcium Carbonate (Calcium Carbonate 750 Mg Tab.Chew) 750 mg PO Q4H PRN PRN Reason: Heartburn Docusate Sodium (Docusate Sodium 100 Mg Capsule) 100 mg PO BID [facility] Last Admin: 03/15/25 07:42 Dose: 100 mg Documented By: ERIC Enoxaparin Sodium (Enoxaparin Sodium 40 Mg/0.4 Ml Syringe) 40 mg SUBCUT Q24H [facility] Last Admin: 03/14/25 16:09 Dose: 40 mg Documented By: NILA Fenofibrate (Fenofibrate 160 Mg Tablet) 160 mg PO DAILY [facility] Last Admin: 03/15/25 07:41 Dose: 160 mg Documented By: ERIC Fluticasone Propionate (Fluticasone Propionate Nasal 16 Gm [place]) 1 spray NOSTRIL-B BID [facility] Last Admin: 03/15/25 07:42 Dose: 1 spray Documented By: ERIC Hydromorphone HCl (Hydromorphone Hcl 1 Mg/Ml Syringe) 1 mg IVPUSH Q4H PRN; Protocol PRN Reason: Pain, Severe (Pain Scale 7-10) Last Admin: 03/15/25 07:39 Dose: 1 mg Documented By: ERIC Lactated Ringer's (Lr) 1,000 mls @ 125 mls/hr IVCONT .Q8H [facility] Last Admin: 03/15/25 07:40 Dose: 125 mls/hr Documented By: ERIC Acetaminophen (Ofirmev) 1,000 mg in 100 mls @ 400 mls/hr IV Q6H PRN PRN Reason: Pain, Mild (Pain Scale 1-3) Last Infusion: 03/15/25 03:29 Dose: Infused Documented By: SHENA Loratadine (Loratadine 10 Mg Tablet) 10 mg PO DAILY [facility] Last Admin: 03/15/25 07:41 Dose: 10 mg Documented By: ERIC Magnesium Hydroxide (Milk Of Magnesia 30 Ml Oral.Susp) 30 ml PO DAILY PRN PRN Reason: Constipation Melatonin (Melatonin 3 Mg Tablet) 6 mg PO BEDTIME PRN PRN Reason: Insomnia Last Admin: 03/15/25 00:39 Dose: 6 mg Documented By: SHENA Omeprazole (Omeprazole 20 Mg Capsule.Dr) 20 mg PO DAILY@0630 [facility] Last Admin: 03/15/25 06:20 Dose: 20 mg Documented By: SHENA Ondansetron HCl (Ondansetron Hcl 4 Mg/2 Ml Vial) 4 mg IVPUSH Q8H PRN PRN Reason: Nausea and Vomiting Oxycodone HCl (Oxycodone Hcl Immed Release 5 Mg Tablet) 5 mg PO Q4H PRN PRN Reason: Pain, Moderate(Pain Scale 4-6) Last Admin: 03/15/25 03:13 Dose: 5 mg Documented By: SHENA Sodium Chloride (0.9 % Sodium Chloride Flush 3 Ml Syringe) [facility] Last Admin: 03/15/25 07:41 Dose: Not Given Documented By: ERIC Non-Admin Reason: IV Running Labs 03/15/25 05:38 03/15/25 05:38 Labs: Laboratory Results - last 24 hr 03/14/25 03/15/25 10:37 05:38 MCV 92.7 92.1 MCH 31.6 31.5 MCHC 34.1 34.2 RDW 12.1 11.8 Plt Count 248 234 MPV 9.3 L 9.9 Absolute Nucleated RBC 0.000 0.000 Nucleated RBC % (auto) 0.0 0.0 Anion Gap 10 L 15 Estim Creat Clear Calc 79.0 76.7 Estimated GFR > 60 > 60 Random Glucose 116 H 91 Calcium 9.5 D 9.3 Total Bilirubin 1.1 H Direct Bilirubin 0.6 H AST 20 ALT 13 Alkaline Phosphatase 50 Total Protein 6.5 Albumin 4.1 Lipase 2182 H 477 H Assessment and Plan (1) Pancreatitis: Status: Acute Plan 60/m with hypercholesterolemia, GERD, impaired glucose tolerance, essential hypertension, hepatic steatosis, Gordon's esophagus, and osteoarthritis of the right knee, degenerative joint disease , drinks alcohol socially presents with sudden onset of severe epigastric, Lipase > 3000, TG 200, clinical presentation c/w acute pancreatitis Acute pancreatitis, eitology unclear at this time TG 212 MRCP, no biliary obstruction, + pancreatitis Lipase down from >3000 --> 2182-->477 US no gallstones LFTs wnl GI consult noted: Repeat MRI in 4 week, KRISTEN, IgG 4 pending IVF, pain medication (IV dilaudid, IV APAP, oral oxycodone) Hold Losartan as can cause pancreatitis in rare cases Continue Liquid diet and advance as tolerated HLD continue statin and fenofibrate GERD PPI DVT prophylaxis: Lovenox Out of bed, ambulate Plan of care discussed with patient and signficant other Quality Stroke Does the patient have a stroke diagnosis?: No VTE Prior VTE?: No VTE Risk Level:: Medical - moderate - high VTE Device Contraindication: Treatment Not Indicated VTE Drug Contraindication: N/A - Med Ordered
--- NOTE | 2025-03-15 11:16 | MHC.CM.PN ---
Per MD rounds patient not medically cleared for dc. CM will continue to follow.
[2025-03-15 15:15] VITALS: BP 158/83; PULSE 73; RESP 18; TEMP 36.7; O2SAT 97
[2025-03-15] MEDS: Enoxaparin Sodium 40 MG/0.4 ML SYRINGE SUBCUT (15:28)
--- NOTE | 2025-03-15 17:08 | P.PNGI_ITS ---
Subjective Subjective Date of Service: 03/15/25 Interval History: abdo pain is lessening no n/v passing gas taking clears right now Critical Care Time (minutes): 0 Physical Exam 2 Vital Signs: Vital Signs: Last Vital Signs Temp 98.0 F 03/15/25 15:15 Pulse 73 03/15/25 15:15 Resp 18 03/15/25 15:15 BP 158/83 H 03/15/25 15:15 Pulse Ox 97 03/15/25 15:15 O2 Del Method Room Air 03/15/25 15:15 BMI result Body Mass Index 26.3 EXAM: GENERAL: The patient is well developed and nontoxic. VITAL SIGNS:see workflow HEENT: Nonicteric sclerae, PERRLA, EOMI. Oropharynx clear. Moist mucous membranes. Conjunctivae appear well perfused. No thyroid mass. CHEST: Chest wall is nontender. HEART: Regular rate and rhythm without murmurs. LUNGS: Clear to auscultation bilaterally. ABDOMEN: Soft, positive bowel sounds, tender epigastrium, no organomegaly.no flank tenderness SKIN: No rash, no excessive bruising, petechiae, or purpura. NEUROLOGIC: Cranial nerves II-XII intact without motor/sensory deficit. Psych: normal affect Objective Data Labs 03/15/25 05:38 03/15/25 05:38 Labs: Laboratory Results - last 24 hr 03/15/25 05:38 WBC 13.1 H RBC 3.94 L Hgb 12.4 L Hct 36.3 L MCV 92.1 MCH 31.5 MCHC 34.2 RDW 11.8 Plt Count 234 MPV 9.9 Absolute Nucleated RBC 0.000 Nucleated RBC % (auto) 0.0 Sodium 136 Potassium 3.6 Chloride 103 Carbon Dioxide 22 Anion Gap 15 BUN 13 Creatinine 1.03 Estim Creat Clear Calc 76.7 Estimated GFR > 60 Random Glucose 91 Calcium 9.3 Total Bilirubin 1.1 H Direct Bilirubin 0.6 H AST 20 ALT 13 Alkaline Phosphatase 50 Total Protein 6.5 Albumin 4.1 Lipase 477 H Procedures Date of Service Date of Service: 03/15/25 Progress Note: A&P Assessment and plan (1) Pancreatitis: Status: Acute Plan 1/ Acute pancreatitis, uncertain etiology, ?passed a stone, no sludge or stone seen on MRI or US PLAN: 1/ Advance diet as tolerated 2/consider rept MRI in 6-8 weeks 3/ await celiac and bita serology Time Spent With Patient Time: Total time managing care of this patient today ____ minutes. Quality Stroke Does the patient have a stroke diagnosis?: No VTE Prior VTE?: No VTE Risk Level:: Medical - moderate - high VTE Device Contraindication: Treatment Not Indicated VTE Drug Contraindication: N/A - Med Ordered
[2025-03-15 19:49] VITALS: BP 119/56; PULSE 78; RESP 18; TEMP 36.3; O2SAT 94
[2025-03-16] MEDS: Acetaminophen 1,000 MG/100 ML PIGGYBACK 400 MG IV ×2 (00:36→07:31)
[2025-03-16] MEDS: HYDROmorphone HCl 1 MG/ML SYRINGE IVPUSH ×5 (02:25→21:16)
[2025-03-16] MEDS: Lactated Ringers 1,000 ML 125 ML IVCONT (02:27)
[2025-03-16 03:41] VITALS: BP 129/69; PULSE 72; RESP 18; TEMP 36.3; O2SAT 95
[2025-03-16] MEDS: oxyCODONE HCl Immed Release 5 MG TABLET PO ×5 (04:17→23:42)
[2025-03-16] MEDS: Omeprazole 20 MG CAPSULE.DR PO (06:17)
[2025-03-16 06:30] LABS: Lipase 114 U/L (8-78)
[2025-03-16 07:30] VITALS: BP 160/85; PULSE 76; RESP 16; TEMP 36.6; O2SAT 94
[2025-03-16] MEDS: Loratadine 10 MG TABLET PO (07:32)
[2025-03-16] MEDS: Docusate Sodium 100 MG CAPSULE PO ×2 (07:32→19:40)
[2025-03-16] MEDS: Fenofibrate 160 MG TABLET PO (07:32)
[2025-03-16] MEDS: Atorvastatin Calcium 10 MG TABLET 5 MG PO (07:32)
[2025-03-16] MEDS: Fluticasone Propionate Nasal 16 GM SPRAY 1 SPRAY NOSTRIL-B (07:33)
[2025-03-16 07:47] LABS: MANUAL DIFF FLAG NO
[2025-03-16 07:59] LABS: Basophils Percent Auto 0.3 % (0-2); Eosinophils Absolute Auto 0.2 X10*3/uL (0.0-0.4); Eosinophils Percent Auto 1.9 % (0-4); Hematocrit 32.9 % (42.0-52.0); Hemoglobin 11.7 g/dl (14.0-18.0); Imm Gran Abs Auto 0.05 X10*3/uL (0.00-0.03); Imm Gran Pct Auto 0.4 % (0.0-0.4); Lymphocytes Absolute Auto 0.9 X10*3/uL (1.2-4.9); Lymphocytes Percent Auto 7.7 % (20-40); Mean Corpuscular HGB Conc 35.6 g/dl (31.0-36.0); Mean Corpuscular Hemoglobin 31.9 pg (27.0-33.0); Mean Corpuscular Volume 89.6 fL (80.0-98.0); Monocytes Absolute Auto 1.3 X10*3/uL (0.1-1.2); Neutrophils Absolute Auto 9.3 x10*3/uL (2.0-8.3); Neutrophils Percent Auto 78.7 % (45-73); Platelet Count 238 X10*3/uL (160-400); Red Blood Count 3.67 X10*6/uL (4.60-5.80); Red Cell Distribution Width 11.8 % (11.0-16.0); White Blood Count 11.9 X10*3/uL (4.8-10.8)
[2025-03-16 08:08] LABS: Anion Gap 12 (12-20); Blood Urea Nitrogen 10 mg/dL (9-16); Calcium 9.3 mg/dL (8.4-10.2); Carbon Dioxide 25 mmol/L (22-29); Chloride 103 mmol/L (96-108); Creatinine Clr Calc Pharmacy 86.9; Estimated Glomerular Filt Rate > 60; Glucose Random 86 mg/dL (60-115); Potassium 3.6 mmol/L (3.3-5.1); Sodium 136 mmol/L (135-145)
--- NOTE | 2025-03-16 10:11 | HO.PM.IMPN ---
Subjective Subjective Date of Service: 03/16/25 Interval History: Seen in follow up for acute pancreatitis pain is much better, lipase down 114 blood pressure is up Physical Exam Vital Signs: Vital Signs: Last Vital Signs Temp 97.8 F 03/16/25 07:30 Pulse 76 03/16/25 07:30 Resp 16 03/16/25 07:30 BP 160/85 H 03/16/25 07:30 Pulse Ox 94 03/16/25 07:30 O2 Del Method Room Air 03/16/25 07:30 BMI result Body Mass Index 26.3 Const: Other: General: Alert, oriented x3, no acute distress. Cardiovascular: Regular rate/rhythm, no murmurs. Abdomen: Soft, mild epigastric tenderness, non-distended. Skin: No rashes or petechiae. Neuro: NF Objective Data Active Medications Al Hydroxide/Mg Hydroxide (Magnesium Hydrox/Alum Hydrox 30 Ml Oral.Susp) 30 ml PO Q4H PRN PRN Reason: Heartburn Amlodipine Besylate (Amlodipine Besylate 5 Mg Tablet) 5 mg PO DAILY [facility]; Protocol Atorvastatin Calcium (Atorvastatin Calcium 10 Mg Tablet) 5 mg PO DAILY [facility] Last Admin: 03/16/25 07:32 Dose: 5 mg Documented By: ERIC Calcium Carbonate (Calcium Carbonate 750 Mg Tab.Chew) 750 mg PO Q4H PRN PRN Reason: Heartburn Docusate Sodium (Docusate Sodium 100 Mg Capsule) 100 mg PO BID [facility] Last Admin: 03/16/25 07:32 Dose: 100 mg Documented By: ERIC Enoxaparin Sodium (Enoxaparin Sodium 40 Mg/0.4 Ml Syringe) 40 mg SUBCUT Q24H [facility] Last Admin: 03/15/25 15:28 Dose: 40 mg Documented By: ERIC Fenofibrate (Fenofibrate 160 Mg Tablet) 160 mg PO DAILY [facility] Last Admin: 03/16/25 07:32 Dose: 160 mg Documented By: ERIC Fluticasone Propionate (Fluticasone Propionate Nasal 16 Gm [place]) 1 spray NOSTRIL-B BID [facility] Last Admin: 03/16/25 07:33 Dose: 1 spray Documented By: ERIC Hydromorphone HCl (Hydromorphone Hcl 1 Mg/Ml Syringe) 1 mg IVPUSH Q4H PRN; Protocol PRN Reason: Pain, Severe (Pain Scale 7-10) Last Admin: 03/16/25 06:18 Dose: 1 mg Documented By: RICHARD Acetaminophen (Ofirmev) 1,000 mg in 100 mls @ 400 mls/hr IV Q6H PRN PRN Reason: Pain, Mild (Pain Scale 1-3) Last Infusion: 03/16/25 07:50 Dose: Infused Documented By: ERIC Lactated Ringer's (Lr) 1,000 mls @ 125 mls/hr IVCONT .Q8H [facility] Last Infusion: 03/16/25 09:55 Dose: Infused Documented By: ERIC Loratadine (Loratadine 10 Mg Tablet) 10 mg PO DAILY [facility] Last Admin: 03/16/25 07:32 Dose: 10 mg Documented By: ERIC Magnesium Hydroxide (Milk Of Magnesia 30 Ml Oral.Susp) 30 ml PO DAILY PRN PRN Reason: Constipation Melatonin (Melatonin 3 Mg Tablet) 6 mg PO BEDTIME PRN PRN Reason: Insomnia Last Admin: 03/15/25 23:59 Dose: 6 mg Documented By: RICHARD Omeprazole (Omeprazole 20 Mg Capsule.Dr) 20 mg PO DAILY@0630 [facility] Last Admin: 03/16/25 06:17 Dose: 20 mg Documented By: RICHARD Ondansetron HCl (Ondansetron Hcl 4 Mg/2 Ml Vial) 4 mg IVPUSH Q8H PRN PRN Reason: Nausea and Vomiting Oxycodone HCl (Oxycodone Hcl Immed Release 5 Mg Tablet) 5 mg PO Q4H PRN PRN Reason: Pain, Moderate(Pain Scale 4-6) Last Admin: 03/16/25 08:47 Dose: 5 mg Documented By: ERIC Sodium Chloride (0.9 % Sodium Chloride Flush 3 Ml Syringe) 3 ml IVFLUSH QSHIFT [facility] Last Admin: 03/16/25 07:23 Dose: Not Given Documented By: ERIC Non-Admin Reason: IV Running Labs 03/16/25 05:41 03/16/25 05:41 Labs: Laboratory Results - last 24 hr 03/16/25 05:41 MCV 89.6 MCH 31.9 MCHC 35.6 RDW 11.8 Plt Count 238 MPV 10.0 Immature Gran % (Auto) 0.4 Neut % (Auto) 78.7 H Lymph % (Auto) 7.7 L Iron % (Auto) 11.0 Eos % (Auto) 1.9 Baso % (Auto) 0.3 Lymph # (Auto) 0.9 L Iron # (Auto) 1.3 H Eos # (Auto) 0.2 Baso # (Auto) 0.0 Abs Immat Gran (auto) 0.05 H Absolute Neuts (auto) 9.3 H Absolute Nucleated RBC 0.000 Nucleated RBC % (auto) 0.0 Hold Purple Top SEE NOTE Anion Gap 12 Estim Creat Clear Calc 86.9 Estimated GFR > 60 Random Glucose 86 Calcium 9.3 Lipase 114 H Assessment and Plan (1) Pancreatitis: Status: Acute Plan 60/m with hypercholesterolemia, GERD, impaired glucose tolerance, essential hypertension, hepatic steatosis, Gordon's esophagus, and osteoarthritis of the right knee, degenerative joint disease , drinks alcohol socially presents with sudden onset of severe epigastric, Lipase > 3000, TG 200, clinical presentation c/w acute pancreatitis Acute pancreatitis, eitology unclear at this time TG 212 MRCP, no biliary obstruction, + pancreatitis Lipase down from >3000 --> 2182-->477-->114 US no gallstones LFTs wnl GI consult noted: Repeat MRI in 4 week, KRISTEN, IgG 4 pending IVF, pain medication (IV dilaudid, IV APAP, oral oxycodone) Hold Losartan as can cause pancreatitis in rare cases Continue Liquid diet and advance as tolerated HLD continue statin and fenofibrate GERD PPI HTN, BP rising without meds Starting Norvasc 5 mg daily and continue to hold Losartan DVT prophylaxis: Lovenox Out of bed, ambulate Plan of care discussed with patient and signficant other Quality Stroke Does the patient have a stroke diagnosis?: No VTE Prior VTE?: No VTE Risk Level:: Medical - moderate - high VTE Device Contraindication: Treatment Not Indicated VTE Drug Contraindication: N/A - Med Ordered
[2025-03-16] MEDS: amLODIPine Besylate 5 MG TABLET PO (10:21)
[2025-03-16] MEDS: Acetaminophen 325 MG TABLET 650 MG PO ×3 (14:34→23:42)
[2025-03-16] MEDS: Enoxaparin Sodium 40 MG/0.4 ML SYRINGE SUBCUT (14:35)
[2025-03-16 15:33] VITALS: BP 140/78; PULSE 85; RESP 18; TEMP 37.4; O2SAT 96
[2025-03-16] MEDS: 0.9 % Sodium Chloride Flush 3 ML SYRINGE IVFLUSH ×2 (17:14→23:43)
[2025-03-16 20:00] VITALS: BP 157/78; PULSE 84; RESP 18; TEMP 37.2; O2SAT 96
[2025-03-16] MEDS: Melatonin 3 MG TABLET 6 MG PO (23:42)
[2025-03-17] MEDS: HYDROmorphone HCl 1 MG/ML SYRINGE IVPUSH ×2 (01:15→05:12)
[2025-03-17] MEDS: oxyCODONE HCl Immed Release 5 MG TABLET PO ×2 (03:30→07:33)
[2025-03-17] MEDS: Acetaminophen 325 MG TABLET 650 MG PO ×2 (03:30→07:34)
[2025-03-17 03:54] VITALS: PULSE 72; RESP 18; TEMP 36.5; O2SAT 98
[2025-03-17 04:18] VITALS: BP 129/64
[2025-03-17] MEDS: Omeprazole 20 MG CAPSULE.DR PO (05:12)
[2025-03-17 06:37] LABS: Lipase 94 U/L (8-78)
--- NOTE | 2025-03-17 07:19 | P.DS_ITS ---
DS: Providers Provider Date of Service: 03/17/25 Date of admission: 03/13/25 15:03 Date of discharge: 03/17/25 Primary care physician: Lynn Sheldon MD Consults: 03/13/25 14:21 Consult to Gastroenterology Stat Consulting Provider: Clayton Meeks Reason for consultation: pANCREATITIS Has provider been notified: Yes DS: Diagnosis Discharge Diagnosis (1) Pancreatitis: Status: Acute DS: Summary Hospital Course Hospital Course: Chief Complaint: Abdominal pain 60/m with hypercholesterolemia, GERD, impaired glucose tolerance, essential hypertension, hepatic steatosis, Gordon's esophagus, and osteoarthritis of the right knee, degenerative joint disease , drinks alcohol socially presents with sudden onset of severe epigastric pain without radiation, no fever, but had n ausea. CT of abdomen show Extrahepatic bile duct is dilated which could be related to an occult gallstone, US is show no gallstone. Lipase level > 3000. He has gotten some relief wtih IV dilaudid. TG level is 212. Hospital course: The patient presented with abdominal pain, and diagnostic workup revealed acute pancreatitis, confirmed by CT scan and elevated lipase (>3000). Triglyceride levels were 202, with normal liver function tests (LFTs). The patient was admitted and treated with IV fluids, IV pain medications (including Dilaudid and IV Tylenol). An MRCP showed findings consistent with pancreatitis, with no evidence of bile duct pathology or choledocholithiasis. Gastroenterology (Dr. Garvey) evaluated the patient and recommended KRISTEN and IgG4 testing (results pending) as part of an autoimmune workup. During hospitalization, lipase levels trended downward daily: >3000 --> 2182 --> 477 --> 114 --> 94, his pain has also gradually improved and diet has advanced to regular diet which he's tolerating. He will be discharged home to follow up with PCP and GI on outpatient basis Time Attestation Discharge Coordination Time (in mins): 40 Quality: Safe Use of Opioids Does Pt have an Active Cancer Diagnosis on the Problem List?: No Quality: Stroke Does the patient have a stroke diagnosis?: No Physical Exam Vital Signs: Vital Signs: Last Vital Signs Temp 97.7 F 03/17/25 03:54 Pulse 72 03/17/25 03:54 Resp 18 03/17/25 03:54 BP 129/64 03/17/25 04:18 Pulse Ox 98 03/17/25 03:54 O2 Del Method Room Air 03/17/25 03:54 BMI result Body Mass Index 26.3 DS: Data Data Completed and Pending Labs on day of discharge: Laboratory Results - last 24 hr 03/16/25 03/17/25 05:41 06:08 WBC 11.9 H RBC 3.67 L Hgb 11.7 L Hct 32.9 L MCV 89.6 MCH 31.9 MCHC 35.6 RDW 11.8 Plt Count 238 MPV 10.0 Immature Gran % (Auto) 0.4 Neut % (Auto) 78.7 H Lymph % (Auto) 7.7 L [place] % (Auto) 11.0 Eos % (Auto) 1.9 Baso % (Auto) 0.3 Lymph # (Auto) 0.9 L [place] # (Auto) 1.3 H Eos # (Auto) 0.2 Baso # (Auto) 0.0 Abs Immat Gran (auto) 0.05 H Absolute Neuts (auto) 9.3 H Absolute Nucleated RBC 0.000 Nucleated RBC % (auto) 0.0 Sodium 136 Potassium 3.6 Chloride 103 Carbon Dioxide 25 Anion Gap 12 BUN 10 Creatinine 0.91 Estim Creat Clear Calc 86.9 Estimated GFR > 60 Random Glucose 86 Calcium 9.3 Lipase 94 H Discharge Plan Discharge Anticipated Discharge Date/Time: 03/17/25 07:19 Patient Disposition: Home, Self-Care Discharge Diagnosis: Acute pancreatitis Referrals: Po,Lynn Thornton MD [Primary Care Provider, Internal Medicine] - 1 Week Discharge Medications: New amlodipine 5 mg Tablet 5 mg PO DAILY Qty: 90 1RF Protocol: Hold for SBP< HOLD for SBP < : 90 Continued fenofibrate 160 mg tablet 160 mg PO DAILY 90 Days Qty: 90 1RF simvastatin 5 mg tablet 5 mg PO DAILY fluticasone propionate [Flonase Allergy Relief] 50 mcg/actuation spray,suspension 1 spray intranasal BID Rx Instructions: administer into each nostril omeprazole magnesium [Prilosec OTC] 20 mg tablet,delayed release (DR/EC) 20 mg PO DAILY@0630 fexofenadine [Deena Allergy] 180 mg tablet 180 mg PO DAILY Discontinued losartan 50 mg tablet 50 mg PO DAILY 90 Days Qty: 90 0RF Diet: Advance to usual diet Activity on Discharge: As tolerated Stand Alone Forms: Patient Portal Discharge page Print Language: Greenlandic Care Plan Goals: Recovery from acute pancreatitis Health Concerns: Acute pancreatitis Plan of Treatment: avoid fatty food take oxycodone as needed for pain follow up with your Doctor in 7 to 10 days for post hospoitalization check Losartan is changed to Norvasc for your blood pressure Assessment: see above
[2025-03-17 07:32] VITALS: BP 146/85; PULSE 78; RESP 18; TEMP 36.2; O2SAT 96
[2025-03-17] MEDS: Fenofibrate 160 MG TABLET PO (07:33)
[2025-03-17] MEDS: Atorvastatin Calcium 10 MG TABLET 5 MG PO (07:34)
[2025-03-17] MEDS: Loratadine 10 MG TABLET PO (07:34)
[2025-03-17] MEDS: Docusate Sodium 100 MG CAPSULE PO (07:34)
[2025-03-17] MEDS: amLODIPine Besylate 5 MG TABLET PO (07:34)
[2025-03-17] MEDS: 0.9 % Sodium Chloride Flush 3 ML SYRINGE IVFLUSH (07:34)
[2025-03-17] MEDS: Fluticasone Propionate Nasal 16 GM SPRAY 1 SPRAY NOSTRIL-B (07:37)
--- NOTE | 2025-03-17 09:38 | PC.NURSE ---
Patient educated about not driving while taking narcotic pain medication. Patient prescribed oxycodone to take home on discharge and concerned about timing of next dose close to discharge. Patient educated that because they are driving home they will not be able to take pain med before leaving and to avoid driving while taking the medication.
--- NOTE | 2025-03-17 10:02 | MHC.CM.PN ---
PT TO DC HOME TODAY WITH NO SERVICES VIA PRIVATE TRANSPORT
[2025-03-18 12:09] LABS: Anti Nuclear Antibody Screen NEGATIVE (NEGATIVE)
== END 2025-03-17 10:23 | disposition home or self-care (01) | DRG 440 ==
LOC: HO.ED 14:23 → HO.EDOVER 15:07 → HO.S3 15:51
PROVIDERS: Admitting Provider Internal Medicine; Emergency Provider Emergency Medicine; PCP Internal Medicine; Visit Provider Internal Medicine
DX: K85.90 Acute pancreatitis without necrosis or infection, unspecified (principal); E78.5 Hyperlipidemia, unspecified; K21.9 Gastro-esophageal reflux disease without esophagitis; Z87.891 Personal history of nicotine dependence; Z79.51 Long term (current) use of inhaled steroids; Z79.899 Other long term (current) drug therapy
CPT/HCPCS: 36415; 71045; 71275; 74174; 74176; 74181; 76705; 80048; 80053; 80061; 80076; 83690; 84484; 85025; 85027; 85610; 85730; 86038; 93005; 99285; J0131; J1171; J1650; J2405; J7120; Q9967

== ENCOUNTER → 2025-03-13 12:28 | Outpatient (BNV) | payer OTHER, SELFPAY | PROVIDERS: Admitting Provider Internal Medicine; Emergency Provider Emergency Medicine; PCP Internal Medicine; Visit Provider Internal Medicine Cardiovascular Disease | DX: I49.9 Cardiac arrhythmia, unspecified (principal) | CPT/HCPCS: 93010 ==

== ENCOUNTER → 2025-03-13 12:45 | Outpatient (BNV) | payer OTHER, SELFPAY | PROVIDERS: Admitting Provider Internal Medicine; Emergency Provider Emergency Medicine; PCP Internal Medicine; Visit Provider Radiology Diagnostic Radiology | DX: K85.90 Acute pancreatitis without necrosis or infection, unspecified (principal); I70.8 Atherosclerosis of other arteries; K82.8 Other specified diseases of gallbladder; R07.9 Chest pain, unspecified | CPT/HCPCS: 71045; 74181; 76705 ==

== ENCOUNTER 2025-03-13 15:03 | Outpatient (BNV) | payer OTHER, SELFPAY | END 2025-03-15 18:39 | PROVIDERS: Admitting Provider Internal Medicine; Emergency Provider Emergency Medicine; PCP Internal Medicine; Visit Provider Nuclear Medicine | DX: K85.90 Acute pancreatitis without necrosis or infection, unspecified (principal) | CPT/HCPCS: 74176 ==

== ENCOUNTER → 2025-03-13 15:03 | Outpatient (BNV) | payer OTHER, SELFPAY | PROVIDERS: Admitting Provider Internal Medicine; Emergency Provider Emergency Medicine; PCP Internal Medicine; Visit Provider Internal Medicine Gastroenterology | DX: K85.90 Acute pancreatitis without necrosis or infection, unspecified (principal) | CPT/HCPCS: 99232 ==

== ENCOUNTER → 2025-03-13 15:03 | Outpatient (BNV) | payer OTHER, SELFPAY | PROVIDERS: Admitting Provider Internal Medicine; Emergency Provider Emergency Medicine; PCP Internal Medicine; Visit Provider Internal Medicine | DX: K85.90 Acute pancreatitis without necrosis or infection, unspecified (principal) | CPT/HCPCS: 99232; 99239 ==

== ENCOUNTER 2025-05-21 08:26 | Outpatient (REF) | payer OTHER, SELFPAY ==
[2025-05-21 09:06] LABS: MANUAL DIFF FLAG NO
[2025-05-21 10:05] LABS: Hematocrit 37.4 % (42.0-52.0); Hemoglobin 12.7 g/dl (14.0-18.0); Imm Gran Abs Auto 0.01 X10*3/uL (0.00-0.03); Imm Gran Pct Auto 0.3 % (0.0-0.4); Lymphocytes Absolute Auto 0.9 X10*3/uL (1.2-4.9); Mean Corpuscular HGB Conc 34.0 g/dl (31.0-36.0); Mean Corpuscular Hemoglobin 31.1 pg (27.0-33.0); Mean Corpuscular Volume 91.7 fL (80.0-98.0); NRBC Abs Auto 0.000 X10*3/uL (0.0-0.012); NRBC Pct Auto 0.0 /100WBC (0.0-0.2); Platelet Count 209 X10*3/uL (160-400); Red Blood Count 4.08 X10*6/uL (4.60-5.80); Reticulocytes Absolute 0.021 X10*6/uL (0.026-0.095); White Blood Count 3.4 X10*3/uL (4.8-10.8)
[2025-05-21 10:09] LABS: Total Hemoglobin (HGBA1C) 3341.7467 umol/L
[2025-05-21 11:04] LABS: Alanine Aminotransferase 27 U/L (0-40); Albumin Level 4.9 g/dL (3.5-5.0); Alkaline Phosphatase 45 U/L (39-117); Amylase 50 U/L (28-100); Anion Gap 12 (12-20); Aspartate Amino Transferase 25 U/L (5-37); Blood Urea Nitrogen 20 mg/dL (9-16); Calcium 9.4 mg/dL (8.4-10.2); Carbon Dioxide 26 mmol/L (22-29); Chloride 108 mmol/L (96-108); Cholesterol 163 mg/dL (<200); Estimated Glomerular Filt Rate > 60; Ferritin 847 ng/mL (20-250); Free T4 (Free Thyroxine) 0.97 ng/dL (0.71-1.85); HDL Cholesterol 35 mg/dL (>40); Iron 102 mcg/dL (45-160); Lipase 28 U/L (8-78); Magnesium 2.0 mg/dL (1.6-2.6); Percent Iron Saturation 33 % (15-50); Potassium 4.6 mmol/L (3.3-5.1); Sodium 141 mmol/L (135-145); Thyroid Stimulating Hormone 0.37 uIU/mL (0.32-4.0); Total Iron Binding Capacity 311 mcg/dL (228-428); Total Protein 7.1 g/dL (6.5-8.0); Triglycerides 140 mg/dL (<150); Unsaturated Iron Binding 209 ug/dL
[2025-05-21 11:20] LABS: Folate 6.9 ng/mL (> or = 4.0); Vitamin B12 509 pg/mL (200-900)
== END 2025-05-21 08:27 | disposition home or self-care (01) ==
LOC: HO.LAB 08:26
PROVIDERS: PCP Internal Medicine; Visit Provider Internal Medicine
DX: R73.02 Impaired glucose tolerance (oral) (principal); I10 Essential (primary) hypertension; E78.00 Pure hypercholesterolemia, unspecified; K22.70 Barrett's esophagus without dysplasia; K85.90 Acute pancreatitis without necrosis or infection, unspecified; M47.816 Spondylosis without myelopathy or radiculopathy, lumbar region
CPT/HCPCS: 36415; 80053; 80061; 82150; 82607; 82728; 82746; 83036; 83540; 83690; 83735; 84439; 84443; 85025; 85045

== ENCOUNTER 2025-05-21 08:26 | Outpatient (AMB) | payer OTHER, SELFPAY ==
[2025-05-21 08:29] VITALS: BP 138/82; PULSE 65; TEMP 36.3; O2SAT 98; BMI 25.1
--- NOTE | 2025-05-21 08:29 | A.OFFPC_ITS ---
Vital Signs 05/21/25 08:29 Height 5 ft 10 in Weight 175 lb BMI 25.1 BP 138/82 Blood Pressure Location Lt brachial Position Sitting Pulse 65 Pulse Source Pulse Oximeter Temp 97.3 F Temp Source Temporal Artery Scan Pulse Oximetry (%) 98 Oxygen Delivery Method Room Air Intake Visit Reasons: IGT Allergies lisinopril Allergy (Intermediate, Verified 05/21/25 08:31) Cough scallops Adverse Reaction (Intermediate, Verified 05/21/25 08:31) VOMITING mussels Adverse Reaction (Severe, Uncoded 05/21/25 08:31) N/V Medication List - Last Reconciled 05/21/25 by Lynn Sheldon MD amlodipine (Norvasc) 5 mg PO DAILY fenofibrate 160 mg PO DAILY 90 days fexofenadine (Deena Allergy) 180 mg PO DAILY fluticasone propionate 50 mcg/actuation (Flonase Allergy Relief) 1 spray intranasal BID omeprazole magnesium (Prilosec OTC) 20 mg PO DAILY@0630 simvastatin 5 mg PO BEDTIME tramadol 50 mg PO DAILY PRN Tobacco use date assessed: 05/21/25 Dental Screening Dental Screen Date: 05/21/25 Did you have a dental visit in the last 12 months?: Yes Did you have a dental problem in the last 6 months where you did not have access to dental care?: No Was dental information given to patient?: Patient has dentist [facility] Medical History LFT elevation Colon cancer screening Pain and swelling of left wrist Gastroenteritis Immunization due Cellulitis of left thumb Dog bite of left thumb Myofascial pain syndrome Blood pressure elevated without history of HTN Allergic rhinitis GERD (gastroesophageal reflux disease) Hypertriglyceridemia Impaired glucose tolerance Surgical History History of esophagogastroduodenoscopy (EGD) History of laryngoscopy Left breast mass Family History Mother No problems noted. 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 1. Little interest or pleasure in doing things: not at all 2. Feeling down, depressed, or hopeless: not at all 3. Trouble falling or staying asleep, or sleeping too much: not at all 4. Feeling tired or having little energy: not at all 5. Poor appetite or overeating: not at all 6. Feeling bad about yourself - or that you are a failure or have let yourself or your family down: not at all 7. Trouble concentrating on things, such as reading the newspaper or watching television: not at all 8. Moving or speaking so slowly that other people could have noticed. Or the opposite - being so fidgety or restless that you have been moving around a lot more than usual: not at all 9. Thoughts that you would be better off or of hurting yourself in some way: not at all Total score: 0 Depression Screening Interpretation: Negative Depression Screening Done: Yes Source: Developed by Drs. Kiko Gray, Katya Melo, Alex Martinez and colleagues, with an educational karis from [employer]. Thrive Questionnaire Date Thrive assessed: 03/14/25 I am a: Patient What is your living situation today?: I have a steady place to live Within the past 12 months, did the food you bought not last and you didn't have the money to get more?: Never true Within the past 12 months, did you worry whether your food would run out before you got money to buy more?: Never true Do you have trouble paying for medicines?: No Do you have trouble getting transportation to medical appointments?: No Do you have trouble paying your heating and electricity bill?: No Do you have trouble taking care of your child, family member or friend?: No Do you have trouble with day-to-day activities such as bathing, preparing meals, shopping, managing finances, etc.?: No Are you currently unemployed and looking for a job?: No Are you interested in more education?: No Please select the resources that you would like help with: None Currently or been in a relationship where the following occur: No concerns reported THRIVE Score: 0 AUDIT C Alcohol Use Questionnaire (AUDIT-C) 1. How often do you have a drink containing alcohol?: Never 3. How often do you have six or more drinks on one occasion?: Never Total Score: 0 ADELE-7 AMB Questionnaire ADELE-7 Date ADELE - 7 assessed: 11/13/24 Feeling nervous, anxious, or on edge: 0 = Not at all Not being able to stop or control worryin = Not at all Worrying too much about different things: 0 = Not at all Trouble relaxin = Not at all Being so restless that it is hard to sit still: 0 = Not at all Becoming easily annoyed or irritable: 0 = Not at all Feeling afraid as if something awful might happen: 0 = Not at all Total ADELE-7 score (0-4 normal; 5-9 mild; 10-14 moderate; 15-21 severe): 0 Source: Developed by Drs. Kiko Gray, Katya Melo, Alex Martinez and colleagues, with an educational karis from [employer]. Physical exam (Primary Care) Vital Signs: Last Vital Signs Temp 97.3 F 05/21/25 08:29 Pulse 65 05/21/25 08:29 BP 138/82 05/21/25 08:29 Pulse Ox 98 05/21/25 08:29 Oxygen Delivery Method Room Air 05/21/25 08:29 BMI result Body Mass Index 25.1 Tobacco/Smoking Status: Tobacco use Status Tobacco use date assessed 05/21/25 05/21/25 08:32 Patient Tobacco Use Status Former Tobacco user 05/21/25 08:32 Tobacco use type Cigarette 05/21/25 08:32 e-Cigarette/Vaping Use Never Used 05/21/25 08:32 PHQ-9: PHQ-9 Score PHQ-9: Total score 0 05/21/25 08:32 Depression Screening Interpretation: Negative Thrive Assessment: Date of Thrive Assessment Date Thrive assessed 03/14/25 05/21/25 08:32 Currently or been in a relationship where the following occur: No concerns reported Const General: alert; No acute distress Eyes Conjunctivae: conjunctivae normal Resp Auscultation: clear to auscultation bilaterally Cardio Rate: regular rate Rhythm: regular rhythm GI Inspection: Yes normal to inspection Extrem General: Yes normal to inspection and No edema Coding Level of Care Code Est Pt Level 4 (42190) Complex EM visit Add On G2211 Diagnoses Hypertension I10 Hypercholesterolemia E78.00 Impaired glucose tolerance R73.02 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 Decrease salt intake and exercise patient is on amlodipine 5 mg once a day (2) Hypercholesterolemia: Code(s): E78.00 - Pure hypercholesterolemia, unspecified Category: Medical Plan: Avoid fried foods, chicken skin, eggs, butter margarine, pastries and meat. Be it pork or beef they have a lot of cholesterol LDL goal of less than 130 and triglyceride of less than 150 patient is on fenofibrate 160 mg once a day and simvastatin 5 mg once a day (3) Impaired glucose tolerance: Code(s): R73.02 - Impaired glucose tolerance (oral) Category: Medical Plan: Decrease the amount of carbohydrate intake, pasta, bread, rice and potatoes are all sugar and that is aside from all the sweet stuff, remember that fruits are good but they are Sweet also. 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 After eating do not lie down, allow 3-4 hours before in lie down. And keep the head of bed above 30 degrees to avoid the acid from going up. On omeprazole (5) Pancreatitis: Code(s): K85.90 - Acute pancreatitis without necrosis or infection, unspecified Category: Medical Qualifiers: Acute pancreatitis complication: no infection or necrosis Chronicity: acute Pancreatitis type: unspecified pancreatitis type Qualified Code(s): K85.90 - Acute pancreatitis without necrosis or infection, unspecified Plan: Resolved (6) Spondylosis of lumbar spine: Code(s): M47.816 - Spondylosis without myelopathy or radiculopathy, lumbar region Category: Medical Plan: Patient follows up with pain management and the commercial lawn specialist and planned interbody fusion but was advised physical therapy 1st. Plan History of Present Illness The patient is a 60-year-old male presenting for a follow-up visit. The patient has a history of hypercholesterolemia, impaired glucose tolerance, gastroesophageal reflux disease (GERD), hypertension, hepatic steatosis, and Gordon's esophagus. He was last seen in October 2024, and his last colon test was conducted in April 2024. In February, the patient was hospitalized for severe epigastric pain and was diagnosed with pancreatitis, leading to a discharge on March 17. Additionally, x- rays of the lumbar spine showed moderate multilevel spondylosis, more significant at L3-L4. The patient consulted a commercial lawn specialist and was advised on the option of L3 for oblique lumbar interbody fusion, with a recommendation for physical therapy prior to surgery. He had previously attended pain management in January and was presented with options such as radiofrequency ablation or [employer] PNS. The patient's last blood work in February showed mild anemia with hemoglobin at 11.7 g/dL and hematocrit at 32.9%, with normal electrolytes and glucose levels. His triglyceride levels, which were previously elevated at 728 mg/dL in October 2023, were reduced to 173 mg/dL and further to 112 mg/dL by February. [employer] Social History Review of Systems Physical Exam Results - Labs: Mild anemia with hemoglobin at 11.7 g/dL and hematocrit at 32.9% - Labs: Triglyceride levels reduced from 728 mg/dL to 173 mg/dL, and further to 112 mg/dL - Imaging: X-rays of the lumbar spine showing moderate multilevel spondylosis, more significant at L3-L4 Plan Patient was informed and verbally consented to the use of an ambient scribe for clinic note documentation during this visit. 1. Hypercholesterolemia The patient is on fenofibrate 160 mg once a day and simvastatin 5 mg once a day to manage hypercholesterolemia, with a goal of LDL less than 130 mg/dL and triglycerides less than 150 mg/dL. 2. Hypertension The patient is currently taking amlodipine 5 mg once a day for hypertension management. 3. Gastroesophageal Reflux Disease (Gerd) The patient is on omeprazole for the management of gastroesophageal reflux disease, which has resolved. 4. Multilevel Spondylosis The patient was advised to undergo physical therapy before considering surgical intervention, such as oblique lumbar interbody fusion at L3. 5. Pancreatitis The patient was hospitalized for pancreatitis and discharged on March 17, with follow-up care to monitor recovery. Discussion Notes Patient Instructions Orders: Orders Comprehensive Met. Panel Today E78.00 - Pure hypercholesterolemia, unspecified Ferritin Today E78.00 - Pure hypercholesterolemia, unspecified Thyroid Stimulating Hormone Today E78.00 - Pure hypercholesterolemia, unspecified Lipase Today E78.00 - Pure hypercholesterolemia, unspecified Amylase Today E78.00 - Pure hypercholesterolemia, unspecified Magnesium Today E78.00 - Pure hypercholesterolemia, unspecified Reticulocyte Count Today E78.00 - Pure hypercholesterolemia, unspecified IRON PROFILE Today E78.00 - Pure hypercholesterolemia, unspecified Complete Blood Count Auto Diff Today E78.00 - Pure hypercholesterolemia, unspecified Free T4 (Free Thyroxine) Today E78.00 - Pure hypercholesterolemia, unspecified Hemoglobin A1c Today E78.00 - Pure hypercholesterolemia, unspecified Lipid Panel Today E78.00 - Pure hypercholesterolemia, unspecified Vitamin B12 and Folate Today E78.00 - Pure hypercholesterolemia, unspecified Medications: New tramadol 50 mg PO DAILY PRN 7 tabs 1RF pain M47.816 - Spondylosis without myelopathy or radiculopathy, lumbar region
--- OUTSIDE RECORDS SUMMARY | 2025-05-21 08:39 | XMS_ITS ---
Author Name [facility] Organization Unknown History of Medication Use Medication Directions Dispensed Refills Start Date End Date Stat us benzonatateTake 1 ca psule (Oral) 3 times per day PRN - Cough for 5 [id number] times per [id number] 12/19/2023 active Problems Problem Status Onset Date Problem Type Date of Resoluti on Source Hypertension active ProblemAct [facility] S[facility] Acute pharyngitis due to other specified organisms active 2023-12-15 ProblemAct [facility]YS[facility] Acute bronchitis, unspecified active 2023-12-19 ProblemAct [facility]YS[facility] Other specified abnormal findings of blood chemistry active ProblemAct [facility]_PHYSONE Care Team Organization Name Specialty Phone Email Start Date End Da te [facility] Not Found Primary Care 12/15/2023 [facility] Not Found Primary Care 12/15/2023
== END 2025-05-21 09:54 | disposition home or self-care (01) ==
LOC: HO.HMCH 08:27
PROVIDERS: PCP Internal Medicine; Visit Provider Internal Medicine
DX: I10 Essential (primary) hypertension (principal); E78.00 Pure hypercholesterolemia, unspecified; R73.02 Impaired glucose tolerance (oral); K22.70 Barrett's esophagus without dysplasia; K85.90 Acute pancreatitis without necrosis or infection, unspecified; M47.816 Spondylosis without myelopathy or radiculopathy, lumbar region

== ENCOUNTER → 2025-05-24 10:54 | Outpatient (BNV) | payer OTHER, SELFPAY | PROVIDERS: PCP Internal Medicine; Referring Provider Internal Medicine; Visit Provider Internal Medicine | DX: D64.9 Anemia, unspecified (principal); U09.9 Post COVID-19 condition, unspecified | CPT/HCPCS: 99204 ==

== ENCOUNTER 2025-07-01 06:59 | Outpatient (RCR) | payer OTHER, SELFPAY | END 2025-08-19 13:15 | disposition home or self-care (01) | LOC: HO.PT 06:59 | PROVIDERS: PCP Internal Medicine; Visit Provider Physician Assistant | DX: M54.50 Low back pain, unspecified (principal) | CPT/HCPCS: 97110; 97140; 97162; 97535 ==

== ENCOUNTER 2025-07-04 06:13 | Outpatient (REF) | payer OTHER, SELFPAY ==
--- NOTE | ~2025-07-04 | FL_ITS ---
EXAMINATION: XR FLUOROSCOPY WITH IMAGES CLINICAL INFORMATION: Left SI joint pain management injection. COMPARISON: None available. TECHNIQUE: Fluoroscopy provided to: Dr. Rhodes Fluoroscopy time: 7.8 seconds Dose: 2.23 mGy Images: 2 FINDINGS: 2 fluoroscopic spot images obtained during left SI joint injection for pain management. Please refer to the full procedural report for details. FL/FL guidance in treatment room IMPRESSION: Fluoroscopic guidance. Electronically signed by: Cong Diaz MD 07/04/2025 04:37 PM EDT
== END 2025-07-04 06:14 | disposition home or self-care (01) ==
LOC: CF 06:13
PROVIDERS: Visit Provider Internal Medicine
DX: M53.3 Sacrococcygeal disorders, not elsewhere classified (principal)
CPT/HCPCS: 27096; J2003; J2795; J3301; Q9967

== ENCOUNTER 2025-07-25 06:07 | Outpatient (REF) | payer OTHER, SELFPAY ==
--- NOTE | ~2025-07-25 | FL_ITS ---
EXAMINATION: FL GUIDANCE ONLY HISTORY: M53.3 - Sacrococcygeal disorders, not elsewhere classified COMPARISON: None available. TECHNIQUE: Fluoroscopy time: 11 seconds. Cumulative Dose: 2.70 mGy. DAP: 284.40 mGycm2 Images: 3. FINDINGS: Fluoroscopic spot films of the right hemipelvis demonstrate a needle in the region of the sacroiliac joint. FL/FL guidance in treatment room IMPRESSION: Fluoroscopy during procedure. Please see procedure report for additional information. Electronically signed by: Kiko Humphrey MD 07/25/2025 02:38 PM EDT
== END 2025-07-25 06:08 | disposition home or self-care (01) ==
LOC: CF 06:07
PROVIDERS: Visit Provider Internal Medicine
DX: M53.3 Sacrococcygeal disorders, not elsewhere classified (principal)
CPT/HCPCS: 27096; J2003; J2795; J3301

== ENCOUNTER 2025-07-25 09:16 | Outpatient (AMB) | payer OTHER, SELFPAY ==
--- NOTE | 2025-07-25 09:16 | MHC.OFFVIS ---
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 Accompanied by: Spouse Allergies lisinopril Allergy (Intermediate, Verified 07/25/25 09:18) Cough scallops Adverse Reaction (Intermediate, Verified 07/25/25 09:18) VOMITING mussels Adverse Reaction (Severe, Uncoded 07/25/25 09:18) N/V Medication List - Last Reconciled 07/25/25 by Alley Taveras LPN amlodipine (Norvasc) 5 mg PO DAILY fenofibrate 160 mg PO DAILY 90 days fexofenadine (Deena Allergy) 180 mg PO DAILY fluticasone propionate 50 mcg/actuation (Flonase Allergy Relief) 1 spray intranasal BID gabapentin 300 mg PO BEDTIME omeprazole magnesium (Prilosec OTC) 20 mg PO DAILY@0630 simvastatin 5 mg PO BEDTIME HPI HPI Left SIJ inj: Details: Patient presents for scheduled procedure. Denies any recent cough, cold, infection, fever or other significant changes in medical history since last office visit. [facility] Medical History (Updated 07/01/25 @ 14:26 by Alley Taveras LPN) Sacrococcygeal disorders, not elsewhere classified LFT elevation Colon cancer screening Pain and swelling of left wrist Gastroenteritis Immunization due Cellulitis of left thumb Dog bite of left thumb Myofascial pain syndrome Blood pressure elevated without history of HTN Allergic rhinitis GERD (gastroesophageal reflux disease) Hypertriglyceridemia Impaired glucose tolerance Surgical History (Updated 05/24/25 @ 11:10 by Brisa Nunes MD) History of esophagogastroduodenoscopy (EGD) History of laryngoscopy Left breast mass Family History Mother No problems noted. 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 Immediately prior to starting the procedure, a time-out safety check was conducted. The patient's identification, procedure name, procedure site, and procedure laterality were confirmed with the patient. ? Patient was placed prone on the fluoroscopy table and the lumbosacral area was prepped using ChloraPrep and draped with sterile draped in standard fashion. The C-arm was rotated in a contralateral oblique fashion until the medial border of the iliac crest no longer foreshadowed the posterior sacroiliac joint line. The skin and subcutaneous tissue was anesthetized using 1 mL of 0.75% plain lidocaine with 1.5-inch 25-gauge needle in the middle region of the joint line.? A 3.5-inch 22-gauge spinal needle with small bend on the tip was slowly advanced towards the joint line, coaxial to the x-ray beam. Once bony content was obtained, the needle was easily slid into the intra-articular space.? Intra-articular needle position was confirmed using lateral fluoroscopy.? A total volume of 2.5mL of solution containing 40 mg trimcinilone and rest 0.5% of ropivacaine was injected intra-articularly. The stylet was reinserted and needle was removed. The patient tolerated the procedure well. Patient denied any lower extremity weakness or numbness. Patient was observed for 30 min and was discharged after fulfilling the standard discharge criteria. Coding 19154 - Sacroiliac Procedure code (CPT) selection complete Assessment & Plan Assessment & Plan (1) Sacrococcygeal disorders, not elsewhere classified: Code(s): M53.3 - Sacrococcygeal disorders, not elsewhere classified Category: Medical Plan Patient is status post right sacroiliac joint therapeutic injection. Patient tolerated procedure well and was discharged home in stable condition with discharge instructions. All questions were answered. We will follow-up via telephone or in clinic to assess response to therapy. A follow-up appointment was made during today's visit. Orders: Orders AMB Joint Injection/Aspiration Today M53.3 - Sacrococcygeal disorders, not elsewhere classified Coding Level of Care Code Procedure Only Diagnoses Sacrococcygeal disorders, not elsewhere classified M53.3 CPT Codes Coding - Joint 9: 67805 - Sacroiliac ([id number])
[2025-07-25 09:17] VITALS: BP 114/72; PULSE 68; RESP 16; O2SAT 98
[2025-07-25 10:05] VITALS: BP 126/80; PULSE 74; RESP 16; O2SAT 98
== END 2025-07-25 10:06 | disposition home or self-care (01) ==
PROVIDERS: PCP Internal Medicine; Visit Provider Internal Medicine
DX: M53.3 Sacrococcygeal disorders, not elsewhere classified (principal)
CPT/HCPCS: 27096

== ENCOUNTER 2025-08-29 12:49 | Outpatient (AMB) | payer OTHER, SELFPAY ==
[2025-08-29 12:53] VITALS: BMI 24.7
--- NOTE | 2025-08-29 12:53 | A.PHYSOV ---
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 Pain Left buttock down to leg. Rubber Stamp Maker Required: No Allergies lisinopril Allergy (Intermediate, Verified 08/29/25 12:52) Cough scallops Adverse Reaction (Intermediate, Verified 08/29/25 12:52) VOMITING mussels Adverse Reaction (Severe, Uncoded 07/25/25 09:18) N/V HPI Comments Details: History of Present Illness The patient is a 60 year old male presenting for evaluation and management of chronic low back pain with left leg radiculopathy. He reports the pain began suddenly about two years ago and has been present ever since. The pain is predominantly on the left side but can radiate to the right when severe. He describes the pain as a burning, hot poker sensation that starts in his low back and travels down the side of his left thigh, into the knee, and down to the foot. Associated symptoms include numbness, tingling, and a feeling of instability in the leg, though he has not fallen. Symptoms are exacerbated by standing and walking, and are relieved by sitting or lying down. He has a history of a cortisone injection to the sacroiliac joints, which provided relief for five to six weeks on the left side but had no effect on the right. An MRI revealed spinal stenosis at L3-L4 with compression of the left L4 nerve root. A prior surgical recommendation for disc replacement was denied by his insurance. He underwent physical therapy for six weeks, with manual therapy to the SI joint providing temporary relief for about two days at a time. He is currently taking gabapentin 300 mg three times daily without any perceived benefit. His past medical history is significant for hypertension, for which he takes medication. He denies a history of diabetes. 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 Pain is rated 7/10 with standing. I reviewed his neurosurgical, pain management notes prior to the appointment time. MRI images were independently reviewed. Pain Description - Onset: Sudden onset approximately two years ago. - Location: Primarily in the left low back area. - Radiation: The pain radiates down the side of the left thigh, into the knee, and to the foot; it can also go over to the right side when severe. - Quality: Described as a burning pain, like a hot poker. - Associated symptoms: Numbness, tingling, and a feeling of instability in the leg while walking. - Exacerbating factors: Standing and walking. - Relieving factors: Sitting, lying down, or elevating the left leg on a step stool. - Interference with function: When severe, the pain prevents him from walking even short distances, such as from one room to the next. Results - Imaging: An MRI of the lumbar spine dated 01/28/2025 shows spinal stenosis with compression of the left L4 nerve root at the L3-L4 level. [facility] Medical History (Updated 08/29/25 @ 13:20 by Jordin Malik DO) Lumbar radiculitis Spinal stenosis, lumbar region with neurogenic claudication Sacrococcygeal disorders, not elsewhere classified LFT elevation Colon cancer screening Pain and swelling of left wrist Gastroenteritis Immunization due Cellulitis of left thumb Dog bite of left thumb Myofascial pain syndrome Blood pressure elevated without history of HTN Allergic rhinitis GERD (gastroesophageal reflux disease) Hypertriglyceridemia Impaired glucose tolerance Surgical History History of esophagogastroduodenoscopy (EGD) History of laryngoscopy Left breast mass Family History Mother No problems noted. 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 - Neurological: Reports burning pain radiating down the left leg, associated with numbness, tingling, and a feeling of instability. - Constitutional: Denies sleep disturbances. - Cardiovascular: Denies high blood pressure but reports being on medication for it. - Endocrine: Denies diabetes. Physical Exam Exam Exam: Physical Exam - Musculoskeletal: Palpation elicits tenderness over the left lumbar region, which is greater than on the right. - Neurological: Motor strength in upper extremities is 5/5 with pull testing, with only mild give with left ankle dorsiflexion testing comparing to the right side Gait was without antalgia. Lumbar extension was restricted. Tenderness with palpation over left gluteal muscles. SI provocative maneuvers were not particularly positive. Dural tension signs were negative. Tightness of the left hamstring muscles. Vital Signs: BMI result Body Mass Index 24.7 Assessment & Plan Assessment & Plan (1) Spinal stenosis, lumbar region with neurogenic claudication: Code(s): M48.062 - Spinal stenosis, lumbar region with neurogenic claudication Category: Medical (2) Lumbar radiculitis: Code(s): M54.16 - Radiculopathy, lumbar region Category: Medical Plan Pain Management - Analgesia: The patient is taking gabapentin 300 mg three times a day, which he reports provides no relief. - Activities of Daily Living: Pain is exacerbated by standing and walking, significantly limiting mobility when severe. - Affect: The patient denies any problems with sleep due to pain. - Adverse Effects: No adverse effects from medication were reported. - Aberrant Drug Related Behaviors: No aberrant behaviors were noted or discussed. Plan Patient was informed and verbally consented to the use of an ambient scribe for clinic note documentation during this visit. Left L4 Radiculopathy And Lumbar Spinal Stenosis The patient's symptoms are most consistent with left L4 radiculopathy secondary to lumbar spinal stenosis at L3-L4, as evidenced by his MRI findings and clinical presentation of burning pain radiating down the left leg. A left L4 transforaminal epidural steroid injection is recommended as both a diagnostic and therapeutic measure to confirm the L4 nerve root as the pain generator and to provide pain relief. If this provides significant relief, it may be repeated in the future to avoid or delay surgery. The patient was advised to discontinue his gabapentin prescription as it is providing no benefit for his daytime pain, though he may take it at night if he experiences sleep difficulties. Prior authorization for the injection will be obtained from his insurance, and the procedure will be scheduled as soon as approval is received, to be performed in the office. Discussion Notes I explained to the patient and his that his symptoms are classic for lumbar radiculitis (sciatica) and directly correlate with his MRI findings of spinal stenosis at L3-L4 with compression of the left L4 nerve root. I recommended a left L4 transforaminal epidural steroid injection, given his presentation. I elaborated that this procedure would be both diagnostic, to confirm the pain source, and therapeutic, to provide relief. Risks and benefits of the procedure were discussed with the patient. Potential alternative measures were also discussed. Patient understands that the procedure is completely elective. Potential side effects associated with injectable medications were discussed. All questions were answered to the patient's satisfaction. We discussed that if the injection is successful, it could be repeated and could help him avoid or delay more invasive procedures like surgery, which carries no guarantee of permanent pain relief. I advised him that gabapentin is not effective for his pain during the day and that he could discontinue it, with the option to use it for sleep if needed. We will proceed with obtaining insurance authorization for the injection and will schedule him urgently before his travels at the end of the month. The patient and his understood and agreed with the proposed plan. Patient Instructions - Your pain is caused by a pinched nerve in your lower back, a condition known as lumbar radiculopathy or spinal stenosis. - You can stop taking the gabapentin medication during the day as it is not helping your pain. - If you have trouble sleeping, you may take your daily dose (900 mg) at night. - To relieve pain when standing, try propping your left foot up on a stool. - Sitting or lying down should also help relieve the pain. - We are recommending a steroid injection in your back called a left L4 transforaminal epidural steroid injection. This will help confirm the source of your pain and should provide relief. - Our office will contact your insurance to get this procedure approved. We will then call you to schedule the appointment. - The procedure will be performed here in our office. Coding Level of Care Code Tele New Pt Level 4 (38456) Complex visit Add On G2211 Diagnoses Spinal stenosis, lumbar region with neurogenic claudication M48.062 Lumbar radiculitis M54.16
== END 2025-08-29 13:23 | disposition home or self-care (01) ==
LOC: HO.HPHYS 12:49
PROVIDERS: PCP Internal Medicine; Visit Provider Physical Medicine & Rehabilitation
DX: M48.062 Spinal stenosis, lumbar region with neurogenic claudication (principal); M54.16 Radiculopathy, lumbar region
CPT/HCPCS: 99204

== ENCOUNTER 2025-09-06 07:44 | Outpatient (AMB) | payer OTHER, SELFPAY ==
--- NOTE | 2025-09-06 07:47 | A.PHYSOV ---
Vital Signs 09/06/25 07:51 BP 136/74 Pulse 70 Temp 98.3 F Intake Visit Reasons: Left Lumbar Transforaminal Epidural L4 Intake Note: Patient is a 60 year old male in office for a Left L4 Transforaminal Epidural Injection Glass Crusher Required: No Allergies lisinopril Allergy (Intermediate, Verified 09/06/25 07:46) Cough scallops Adverse Reaction (Intermediate, Verified 09/06/25 07:46) VOMITING mussels Adverse Reaction (Severe, Uncoded 07/25/25 09:18) N/V PFSH Medical History Lumbar radiculitis Spinal stenosis, lumbar region with neurogenic claudication Sacrococcygeal disorders, not elsewhere classified LFT elevation Colon cancer screening Pain and swelling of left wrist Gastroenteritis Immunization due Cellulitis of left thumb Dog bite of left thumb Myofascial pain syndrome Blood pressure elevated without history of HTN Allergic rhinitis GERD (gastroesophageal reflux disease) Hypertriglyceridemia Impaired glucose tolerance Surgical History History of esophagogastroduodenoscopy (EGD) History of laryngoscopy Left breast mass Family History Mother No problems noted. 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 Skin over lumbosacral area was prepped and draped in usual sterile manner. Left L4 pedicle was visualized utilizing fluoroscopy. 3.5 inch 22 gauge spinal needle was introduced percutaneously and advanced towards the pedicle at about 6 o'clock position. Once level of neural foramina was reached, needle placement was verified utilizing 3 cc of Omnipaque contrast solution. Excellent flow through the neural foramina and epidural spread was identified without evidence of vascular uptake. Total volume of 6 cc containing 2 cc of 1% lidocaine, 40 mg of triamcinolone and normal saline solution were injected after negative aspiration for blood and cerebrospinal fluid. Radiation exposure was documented in the chart. Lumbar transforaminal Epidural Steroid Inj- use with FL Gd: 29218 - Single Procedure code (CPT) selection complete Office Meds Kenalog 40 mg/mL suspension for injection Performing Provider: Jordin Malik DO Performing Location[facility] Administered by: Jordin Malik DO on 09/06/25 07:59 Dose Route Admin Location Dispensed Lot Number Expiration Date [facility] Can Filling [employer]osing Machine Tender 40 mg epidural 1 mL [id number] [employer] Total Dispensed Waste 1 mL 0 % lidocaine (PF) 10 mg/mL (1 %) injection solution Performing Provider: Jordin Malik DO Performing Location: [facility] Administered by: Jordin Malik DO on 09/06/25 07:59 Dose Route Admin Location Dispensed Lot Number Expiration Date [facility] Can Filling [employer] Closing Machine Tender 50 mg epidural 5 mL [id number] [facility] Total Dispensed Waste 5 mL 0 % Omnipaque 300 300 mg iodine/mL intravenous solution Performing Provider: Jordin Malik DO Performing Location: [facility] Administered by: Jordin Malik DO on 09/06/25 07:59 Dose Route Admin Location Dispensed Lot Number Expiration Date [facility] Can Filling [employer] Closing Machine Tender 3 mL epidural 10 mL [id number] [employer] Total Dispensed Waste 10 mL 70 % Assessment & Plan Assessment & Plan (1) Lumbar radiculitis: Code(s): M54.16 - Radiculopathy, lumbar region Category: Medical Plan: Procedure Plan Procedure Orders: Orders FL Gd Lumbar Transforaminal In Today M54.16 - Radiculopathy, lumbar region AMB Lumbar transforaminal Epidural Steroid Injection Today M54.16 - Radiculopathy, lumbar region Coding Level of Care Code Procedure Only Diagnoses Lumbar radiculitis M54.16 CPT Codes Lumbar transforaminal Epidural Steroid I - CPT TRANSFORM: 77067 - Single ([id number])
[2025-09-06 07:51] VITALS: BP 136/74; PULSE 70; TEMP 36.8
== END 2025-09-06 08:39 | disposition home or self-care (01) ==
LOC: HO.HPHYS 07:44
PROVIDERS: PCP Internal Medicine; Visit Provider Physical Medicine & Rehabilitation
DX: M54.16 Radiculopathy, lumbar region (principal)
CPT/HCPCS: 64483

== ENCOUNTER 2025-09-06 07:44 | Outpatient (REF) | payer OTHER, SELFPAY | END 2025-09-06 07:45 | disposition home or self-care (01) | LOC: HO.HPHYSR 07:44 | PROVIDERS: PCP Internal Medicine; Visit Provider Physical Medicine & Rehabilitation | DX: M54.16 Radiculopathy, lumbar region (principal) | CPT/HCPCS: 64483; J2003; J3301; Q9967 ==